=== PATIENT | female | born 1930 | race Caucasian/White ===

== ENCOUNTER 2020-01-04 21:13 | Inpatient (IN) | payer MEDICARE ==
[2020-01-04] MEDS ORDERED: ONDANSETRON 4 MG/2 ML VIAL IVP STA (22:09)
[2020-01-04] MEDS ORDERED: MORPHINE SULFATE 4 MG/ML SYRINGE IVP STA (22:09)
--- NOTE | 2020-01-04 22:28 | ED ---
Fall HPI - General Source: patient, EMS Mode of arrival: EMS <Rubina Castañeda - Last Filed: 01/06/20 01:17> <Ivet Shirley - Last Filed: 01/07/20 21:06> - General Chief Complaint: Fall Stated Complaint: Fall Time Seen by Provider: 01/04/20 21:31 - History of Present Illness Initial Comments: Patient is an 89-year-old female presenting to the emergency Department with complaints of left hip pain after falling earlier today. Patient states she just lost her balance and fell onto her left side mostly onto her left hip. She was unable to get up. Patient states this happened approximately 2 hours ago. She admits to left knee replacement, no other surgeries of the left lower extremities. She states her pain is sharp with any Hip Movement and is currently 8/10. Patient denies hitting her head, LOC. She denies pain anywhere else. She has no other complaints at this time. Upon arrival to the ER, her vital signs are stable. (Rubina Castañeda) - Related Data Home Medications Medication Instructions Recorded Confirmed Hydrochlorothiazide [Hydrodiuril] 25 mg PO DAILY 02/18/15 01/05/20 Levothyroxine Sodium [Synthroid] 112 mcg PO DAILY 02/18/15 01/05/20 Rivaroxaban [Xarelto] 15 mg PO HS 02/18/15 01/05/20 Rosuvastatin Calcium [Crestor] 20 mg PO DAILY 02/18/15 01/05/20 Cholecalciferol [Vitamin D3 (25 1,000 unit PO DAILY 01/05/20 01/05/20 Mcg = 1000 Iu)] Citalopram Hydrobromide [CeleXA] 10 mg PO DAILY 01/05/20 01/05/20 Diltiazem HCl [Cartia Xt] 180 mg PO DAILY 01/05/20 01/05/20 Olmesartan Medoxomil 20 mg PO DAILY 01/05/20 01/05/20 Allergies Allergy/AdvReac Type Severity Reaction Status Date / Time No Known Allergies Allergy Verified 01/05/20 11:02 Review of Systems ROS Other: All systems not noted in ROS Statement are negative. <Rubina Castañeda - Last Filed: 01/06/20 01:17> ROS Other: All systems not noted in ROS Statement are negative. <Ivet Shirley - Last Filed: 01/07/20 21:06> ROS Statement: Those systems with pertinent positive or pertinent negative responses have been documented in the HPI. Past Medical History Past Medical History: Atrial Fibrillation, Hypertension, Thyroid Disorder History of Any Multi-Drug Resistant Organisms: None Reported Past Surgical History: Appendectomy, Cholecystectomy, Hysterectomy, Joint Replacement, Tonsillectomy Additional Past Surgical History / Comment(s): cataract/LT KNEE REPLACEMENT Past Anesthesia/Blood Transfusion Reactions: No Reported Reaction Past Psychological History: No Psychological Hx Reported Smoking Status: Former smoker Past Alcohol Use History: Daily Past Drug Use History: None Reported <Rubina Castañeda - Last Filed: 01/06/20 01:17> General Exam <Rubina Castañeda - Last Filed: 01/06/20 01:17> - General Exam Comments Initial Comments: GENERAL: Nontoxic, in mild distress secondary to hip pain. HEAD: Atraumatic, normocephalic. EYES: Pupils equal round and reactive to light, extraocular movements intact, sclera anicteric, conjunctiva are normal. ENT: TMs normal, nares patent, oropharynx clear without exudates. Moist mucous membranes. NECK: Normal range of motion, supple without lymphadenopathy or JVD. LUNGS: Breath sounds clear to auscultation bilaterally and equal. No wheezes rales or rhonchi. HEART: Regular rate and rhythm without murmurs, rubs or gallops. ABDOMEN: Soft, nontender, normoactive bowel sounds. No guarding, no rebound. No masses appreciated. : Deferred EXTREMITIES: Pain with palpation of the left lateral posterior hip. There is a significant leg length difference with left leg elevated. She is neurovascular intact. There is moderate swelling of her left lower extremity. Neurovascular intact. No clubbing or cyanosis. NEUROLOGICAL: Cranial nerves II through XII grossly intact. Normal speech. PSYCH: Normal mood, normal affect. SKIN: Warm, Dry, normal turgor, no rashes or lesions noted. (Rubina Castañeda) Course Vital Signs 01/04/20 21:17 Temperature 97.8 F Pulse Rate 92 Respiratory 18 Rate Blood Pressure 165/98 O2 Sat by Pulse 98 Oximetry Medical Decision Making - Lab Data Result diagrams: 01/05/20 09:49 01/05/20 09:49 <Rubina Castañeda - Last Filed: 01/06/20 01:17> - Lab Data Result diagrams: 01/06/20 05:47 01/06/20 05:47 <Ivet Shirley - Last Filed: 01/07/20 21:06> - Medical Decision Making Patient is an 89-year-old female presenting for left hip pain after falling today. X-ray of the left hip reveals an acute, a comminuted, foreshortened, displaced left IT fracture. Patient was given pain control. Patient will be admitted to Dr. Wall who is accepting. (Rubina Castañeda) I was available for consultation in the emergency department. The history and p hysical exam were done by the midlevel provider. I was consulted for this patients care. I reviewed the case with the midlevel provider and based on their presentation of the patient, I agree with the assessment, medical decision making and plan of care as documented. I spoke with Dr. Solares who accepted admission of the patient. Chart was dictated using [employer] dictation software. Attempts were made to correct any dictation errors however some typographical errors may persist. Patient was seen during a national state of emergency due to the Covid-19 pandemic. (Ivet Shirley) - Lab Data Lab Results 01/04/20 01/04/20 01/04/20 Range/Units 21:20 21:20 21:20 WBC 9.6 (3.8-10.6) k/uL RBC 4.97 (3.80-5.40) m/uL Hgb 14.5 (11.4-16.0) gm/dL Hct 45.6 (34.0-46.0) % MCV 91.7 (80.0-100.0) fL MCH 29.2 (25.0-35.0) pg MCHC 31.8 (31.0-37.0) g/dL RDW 13.3 (11.5-15.5) % Plt Count 256 (150-450) k/uL Neutrophils % 43 % Lymphocytes % 43 % Monocytes % 6 % Eosinophils % 4 % Basophils % 1 % Neutrophils # 4.1 (1.3-7.7) k/uL Lymphocytes # 4.1 (1.0-4.8) k/uL Monocytes # 0.6 (0-1.0) k/uL Eosinophils # 0.4 (0-0.7) k/uL Basophils # 0.1 (0-0.2) k/uL PT 9.5 (9.0-12.0) sec INR 0.9 (<1.2) APTT 22.1 (22.0-30.0) sec Sodium 134 L (137-145) mmol/L Potassium 4.3 (3.5-5.1) mmol/L Chloride 94 L (98-107) mmol/L Carbon Dioxide 28 (22-30) mmol/L Anion Gap 12 mmol/L BUN 21 H (7-17) mg/dL Creatinine 1.01 (0.52-1.04) mg/dL Est GFR (CKD-EPI)AfAm 57 (>60 ml/min/1.73 sqM) Est GFR (CKD-EPI)NonAf 50 (>60 ml/min/1.73 sqM) Glucose 156 H (74-99) mg/dL Calcium 10.3 H (8.4-10.2) mg/dL Total Bilirubin 0.4 (0.2-1.3) mg/dL AST 30 (14-36) U/L ALT 26 (4-34) U/L Alkaline Phosphatase 100 (38-126) U/L Troponin I (0.000-0.034) ng/mL Total Protein 8.1 (6.3-8.2) g/dL Albumin 4.7 (3.5-5.0) g/dL Coronavirus (PCR) (Not Detectd) Blood Type Blood Type Recheck Bld Type Recheck Status Antibody Screen Spec Expiration Date 01/04/20 01/04/20 01/04/20 Range/Units 21:20 21:20 21:20 WBC (3.8-10.6) k/uL RBC (3.80-5.40) m/uL Hgb (11.4-16.0) gm/dL Hct (34.0-46.0) % MCV (80.0-100.0) fL MCH (25.0-35.0) pg MCHC (31.0-37.0) g/dL RDW (11.5-15.5) % Plt Count (150-450) k/uL Neutrophils % % Lymphocytes % % Monocytes % % Eosinophils % % Basophils % % Neutrophils # (1.3-7.7) k/uL Lymphocytes # (1.0-4.8) k/uL Monocytes # (0-1.0) k/uL Eosinophils # (0-0.7) k/uL Basophils # (0-0.2) k/uL PT (9.0-12.0) sec INR (<1.2) APTT (22.0-30.0) sec Sodium (137-145) mmol/L Potassium (3.5-5.1) mmol/L Chloride (98-107) mmol/L Carbon Dioxide (22-30) mmol/L Anion Gap mmol/L BUN (7-17) mg/dL Creatinine (0.52-1.04) mg/dL Est GFR (CKD-EPI)AfAm (>60 ml/min/1.73 sqM) Est GFR (CKD-EPI)NonAf (>60 ml/min/1.73 sqM) Glucose (74-99) mg/dL Calcium (8.4-10.2) mg/dL Total Bilirubin (0.2-1.3) mg/dL AST (14-36) U/L ALT (4-34) U/L Alkaline Phosphatase (38-126) U/L Troponin I <0.012 (0.000-0.034) ng/mL Total Protein (6.3-8.2) g/dL Albumin (3.5-5.0) g/dL Coronavirus (PCR) Not Detected (Not Detectd) Blood Type O Positive Blood Type Recheck No Previous Record Bld Type Recheck Status CABO Indicated Antibody Screen NEGATIVE Spec Expiration Date 01/07/2020 - 2319 Disposition <Rubina Castañeda - Last Filed: 01/06/20 01:17> <Ivet Shirley - Last Filed: 01/07/20 21:06> Clinical Impression: Fall, Left displaced femoral neck fracture Disposition: ADMITTED IP TO THIS HOSP Condition: Good
--- NOTE | 2020-01-04 22:39 | XR ---
EXAMINATION TYPE: XR chest 1V DATE OF EXAM: 01/04/2020 COMPARISON: NONE HISTORY: Chest pain after fall TECHNIQUE: Single frontal view of the chest is obtained. FINDINGS: Linear pleural parenchymal scarring near the right minor fissure. Pleural parenchymal scar ring is also seen in the left midlung. There is elevation of the right hemidiaphragm of unknown chron icity. Cholecystectomy clips are noted. There is diffuse osseous demineralization. Cardia mediastinal silhouette is upper limits normal size. IMPRESSION: Right hemidiaphragm elevation, bilateral pleural parenchymal scarring, and upper limits of normal size cardiomediastinal silhouette. No priors for comparison to determine chronicity of thes e findings.
--- NOTE | 2020-01-04 22:41 | XR ---
EXAMINATION TYPE: XR Hip Complete LT DATE OF EXAM: 01/04/2020 CLINICAL HISTORY: Left hip pain after fall TECHNIQUE: AP and frogleg views of the left hip are obtained. COMPARISON: None. FINDINGS: Intertrochanteric markedly comminuted and foreshortened left femoral fracture is seen. Fore shortening is approximately 4 cm. There is 3.5 cm lateral displacement of the distal fracture fragmen t. Femoral head maintains a normal rounded contour. Inferior and superior pubic rami fractures on the left appear chronic and corticated. IMPRESSION: 1. Acute, comminuted, foreshortened, and displaced left intertrochanteric femoral fracture. 2. Chronic appearing left superior and inferior pubic ramus fractures.
[2020-01-05] MEDS ORDERED: MORPHINE SULFATE 4 MG/ML SYRINGE ONE (00:28)
[2020-01-05 05:10] LABS: Basophils # (A) 0.1 k/uL (0-0.2); Basophils % (A) 1 %; Eosinophils # (A) 0.4 k/uL (0-0.7); Eosinophils % (A) 4 %; HCT 45.6 % (34.0-46.0); HGB 14.5 gm/dL (11.4-16.0); Lymphocytes # (A) 4.1 k/uL (1.0-4.8); Lymphocytes % (A) 43 %; MCH 29.2 pg (25.0-35.0); MCHC 31.8 g/dL (31.0-37.0); MCV 91.7 fL (80.0-100.0); Mean Platelet Volume 9.4; Monocytes # (A) 0.6 k/uL (0-1.0); Monocytes % (A) 6 %; Neutrophils # (A) 4.1 k/uL (1.3-7.7); Neutrophils % (A) 43 %; Platelet Count 256 k/uL (150-450); RBC 4.97 m/uL (3.80-5.40); RDW 13.3 % (11.5-15.5); WBC 9.6 k/uL (3.8-10.6)
[2020-01-05 05:11] LABS: INR 0.9 (<1.2); Partial Thromboplastin Time 22.1 sec (22.0-30.0); Prothrombin Time 9.5 sec (9.0-12.0)
[2020-01-05 05:55] LABS: Albumin 4.7 g/dL (3.5-5.0); Calcium 10.3 mg/dL (8.4-10.2); Potassium 4.3 mmol/L (3.5-5.1); Total Bilirubin 0.4 mg/dL (0.2-1.3); Total Protein 8.1 g/dL (6.3-8.2)
[2020-01-05] MEDS: HYDROcodone/APAP 5-325MG 1 EACH TAB PO PRN ×2 (07:36→14:44)
[2020-01-05 10:43] LABS: HCT 35.1 % (34.0-46.0); HGB 11.8 gm/dL (11.4-16.0); MCH 30.4 pg (25.0-35.0); MCHC 33.7 g/dL (31.0-37.0); MCV 90.4 fL (80.0-100.0); Mean Platelet Volume 8.6; Platelet Count 230 k/uL (150-450); RBC 3.88 m/uL (3.80-5.40); RDW 13.1 % (11.5-15.5)
[2020-01-05] MEDS ORDERED: HYDROmorphone 0.5 MG/0.5 ML SYRINGE IVP PRN ×2 (10:48)
[2020-01-05] MEDS ORDERED: DIAZEPAM 5 MG TAB PO PRN (10:48)
[2020-01-05] MEDS ORDERED: ONDANSETRON 4 MG/2 ML VIAL IVP PRN (10:48)
[2020-01-05] MEDS ORDERED: NALOXONE 0.4 MG/ML 1 ML VIAL IV PRN (10:48)
[2020-01-05] MEDS ORDERED: hydrOXYzine PAMOATE 25 MG CAP PO PRN (10:48)
[2020-01-05] MEDS ORDERED: ACETAMINOPHEN TAB 325 MG TAB PO PRN (10:48)
[2020-01-05] MEDS ORDERED: MAGNESIUM HYDROXIDE 2,400 MG/10 ML CUP PO PRN (10:48)
[2020-01-05 10:56] LABS: Albumin 3.5 g/dL (3.5-5.0); Calcium 9.1 mg/dL (8.4-10.2); Potassium 3.8 mmol/L (3.5-5.1); Total Bilirubin 0.7 mg/dL (0.2-1.3); Total Protein 6.5 g/dL (6.3-8.2)
--- NOTE | 2020-01-05 12:10 | P.PN ---
Subjective Progress Note Date: 01/05/20 Principal diagnosis: Left hip fracture Patient is an 89-year-old female seen at bedside this am. She presented to the Emergency Department last evening with complaints of left hip pain after falling earlier yesterday. Patient states she just lost her balance and fell onto her left side mostly onto her left hip. She was unable to get up. She admits to left knee replacement several years ago by Dr. Miller. She states her pain is sharp with any hip movement. Patient denies hitting her head or losing consciousness. She denies pain anywhere else. She has no other complaints at this time including numbness, tingling, weakness, calf pain, chest pain, shortness of breath, fever, chills, other. Objective - Vital Signs Vital signs: Vital Signs Temp 98.3 F 01/05/20 07:00 Pulse 93 01/05/20 07:00 Resp 18 01/05/20 07:00 BP 134/77 01/05/20 07:00 Pulse Ox 95 01/05/20 07:00 Intake & Output 01/04/20 01/05/20 01/05/20 18:59 06:59 18:59 Output Total 275 Balance -275 Weight 83.915 kg Output: Urine 275 Other: Voiding Method Indwelling Catheter Indwelling Catheter - Exam Inspection of left lower extremity shows a shortened internally rotated left leg. There are no wounds or erythema. Range of motion of left hip and knee is not tested due to fracture. Motor and sensation grossly intact throughout left lower extremity. Calf is SNT. 2+ DP and less than 2 sec cap refill present. - Constitutional General appearance: Present: no acute distress - Labs CBC & Chem 7: 01/05/20 09:49 01/05/20 09:49 Labs: Abnormal Lab Results - Last 24 Hours (Table) 01/04/20 01/05/20 01/05/20 Range/Units 21:20 09:49 09:49 WBC 11.0 H (3.8-10.6) k/uL Sodium 134 L 129 L (137-145) mmol/L Chloride 94 L 95 L (98-107) mmol/L BUN 21 H 20 H (7-17) mg/dL Glucose 156 H 141 H (74-99) mg/dL Calcium 10.3 H (8.4-10.2) mg/dL AST 94 H (14-36) U/L ALT 80 H (4-34) U/L Assessment and Plan (1) Left displaced femoral neck fracture Narrative/Plan: Patient has been reviewed with Dr. Ja Donaldson. Plan is to proceed with surgical intervention tomorrow, Thursday, January 06, 2020 including gamma nail/IM hip screw for left IT femur fracture. She is NPO after MN. Case discussed with scheduling and ordered. Medicine consulted for pre op clearance and perioperative medical management. She will need placement post op. Current Visit: Yes Status: Acute Priority: Medium Code(s): S72.002A - FRACTURE OF UNSP PART OF NECK OF LEFT FEMUR, INIT SNOMED Code(s): 3220529 Time with Patient: Less than 30
--- NOTE | 2020-01-05 14:37 | P.CONS ---
History of Present Illness - Reason for Consult Consult date: 01/05/20 Medical management hypertension, hypothyroidism, parox. atrial fibrillation Requesting physician: Ja Donaldson - Chief Complaint Left hip pain status post fall - History of Present Illness This is an 89-year-old female with history of paroxysmal atrial fibrillation, hypertension, hypothyroidism, former nicotine dependence and multiple other medical issues presented to the ER with left hip pain status post fall. Patient reports she was walking turning to go through a doorway and lost her balance. Denies head trauma. Denies syncope, lightheadedness or dizziness. Denies any focal deficits. Denies chest pain, palpitations or shortness of breath. Hip x- ray reported acute comminuted foreshortened and displaced left intertrochanteric femoral fracture, chronic appearing left superior and inferior pubic ramus fractures. Chest x-ray reported right hemidiaphragm elevation, bilateral pleural personal scarring in the upper limits of normal size cardiomediastinal s ilhouette. Coronavirus not detected. Troponins less than 0.012, 0.030. Sodium 129. Afebrile, mild leukocytosis, WBC 11. BUN 20, creatinine 1.1 on admission down to 0.75. Review of Systems ROS Statement: Those systems with pertinent positive or pertinent negative responses have been documented in the HPI. ROS Other: All systems not noted in ROS Statement are negative. Past Medical History Past Medical History: Atrial Fibrillation, Hypertension, Thyroid Disorder History of Any Multi-Drug Resistant Organisms: None Reported Past Surgical History: Appendectomy, Cholecystectomy, Hysterectomy, Joint Replacement, Tonsillectomy Additional Past Surgical History / Comment(s): cataract/LT KNEE REPLACEMENT Past Anesthesia/Blood Transfusion Reactions: No Reported Reaction Past Psychological History: No Psychological Hx Reported Smoking Status: Former smoker Past Alcohol Use History: Daily Past Drug Use History: None Reported Medications and Allergies Home Medications Medication Instructions Recorded Confirmed Type Hydrochlorothiazide [Hydrodiuril] 25 mg PO DAILY 02/18/15 01/05/20 History Levothyroxine Sodium [Synthroid] 112 mcg PO DAILY 02/18/15 01/05/20 History Rivaroxaban [Xarelto] 15 mg PO HS 02/18/15 01/05/20 History Rosuvastatin Calcium [Crestor] 20 mg PO DAILY 02/18/15 01/05/20 History Cholecalciferol [Vitamin D3 (25 1,000 unit PO DAILY 01/05/20 01/05/20 History Mcg = 1000 Iu)] Citalopram Hydrobromide [CeleXA] 10 mg PO DAILY 01/05/20 01/05/20 History Diltiazem HCl [Cartia Xt] 180 mg PO DAILY 01/05/20 01/05/20 History Olmesartan Medoxomil 20 mg PO DAILY 01/05/20 01/05/20 History Allergies Allergy/AdvReac Type Severity Reaction Status Date / Time No Known Allergies Allergy Verified 01/05/20 11:02 Physical Exam Vitals: Vital Signs Temp Pulse Pulse Resp BP BP Pulse Ox 01/05/20 07:00 98.3 F 93 18 134/77 95 01/05/20 01:44 97.8 F 81 19 143/67 94 L 01/04/20 21:17 97.8 F 92 18 165/98 98 Intake and Output 01/04/20 01/05/20 01/05/20 22:59 06:59 14:59 Output Total 275 Balance -275 Output: Urine 275 Other: Voiding Method Indwelling Catheter Indwelling Catheter Weight 83.915 kg PHYSICAL EXAM: VITAL SIGNS: As above GENERAL: Sitting up in bed, no acute distress HEENT: Conjunctivae normal. eyes normal. NECK: No JVD. No thyroid enlargement. No LNs CARDIOVASCULAR: S1, S2 regular.. No murmur RESPIRATION: Breath sounds diminished in the bases. No rhonchi or crackles. No bronchial breathing. ABDOMEN: Soft, nontender . No guarding. no masses palpable. No ascites, No hepatosplenomegaly.Bowel sounds heard. LEGS: Left lower extremity shortened, rotated, mild edema, positive pulses PSYCHIATRY: Alert and oriented X3, mood and affect normal. NERVOUS SYSTEM: Cranial N 2-12 grossly normal. Moves all 4 limbs. Diffuse weakness No focal deficits. Strength and sensation grossly intact.. Skin: no rash Lymphatic system. No LN neck axilla Results CBC & Chem 7: 01/05/20 09:49 01/05/20 09:49 Labs: Abnormal Lab Results - Last 24 Hours (Table) 01/04/20 01/05/20 01/05/20 Range/Units 21:20 09:49 09:49 WBC 11.0 H (3.8-10.6) k/uL Sodium 134 L 129 L (137-145) mmol/L Chloride 94 L 95 L (98-107) mmol/L BUN 21 H 20 H (7-17) mg/dL Glucose 156 H 141 H (74-99) mg/dL Calcium 10.3 H (8.4-10.2) mg/dL AST 94 H (14-36) U/L ALT 80 H (4-34) U/L Assessment and Plan Assessment: acute comminuted foreshortened and displaced left intertrochanteric femoral fracture, status post fall chronic appearing left superior and inferior pubic ramus fractures. Paroxysmal atrial fibrillation Hypertension Hypothyroidism Former nicotine dependence Plan: Continue on current medication regime ,monitoring and symptomatic treatment EKG/echo, serial troponins ordered. Incentive spirometer ordered. Placed on remote telemetry. Recommend also a cardiology consult in a patient who reports that she rarely sees a physician. Patient is on Xarelto which is currently on hold, surgery is tentatively scheduled for tomorrow. Further recommendations to follow. Preop clearance pending testing results and as per Dr. Cobb. Dr. Donaldson for the consult. The impression and plan of care has been dictated as directed. : I performed a history and examination of this patient, discussed the same with the dictator. I agree with the dictator's note ,documented as a scribe. Any additional findings or plans will be noted.
[2020-01-05] MEDS: HYDROmorphone 0.5 MG/0.5 ML SYRINGE IVP PRN (15:24)
--- NOTE | 2020-01-05 16:34 | XR ---
EXAMINATION TYPE: XR femur LT DATE OF EXAM: 01/05/2020 CLINICAL HISTORY: Left hip fracture evaluation TECHNIQUE: Two views of the left femur are obtained. COMPARISON: None FINDINGS: There is improved alignment of the left fracture seen on 01/04/2020. This is intertrochanteri c and comminuted. There remains approximately 2.7 cm foreshortening and 3 cm medial displacement of t he distal fracture fragment. The previously seen old appearing fractures of the superior and inferior pubic rami are not well seen. There is apex lateral angulation that has worsened in the interim. Lef t knee arthroplasty is partially visualized. IMPRESSION: Redemonstration of a known intertrochanteric comminuted foreshortened, displaced, angulat ed left hip fracture as detailed above.
[2020-01-05] MEDS: LACTATED RINGERS 1,000 ML IV SCH ×2 (17:26→20:38)
[2020-01-05] MEDS: SENNOSIDES-DOCUSATE SODIUM 1 EACH TAB PO SCH (20:34)
[2020-01-06] MEDS: HYDROmorphone 0.5 MG/0.5 ML SYRINGE IVP PRN ×2 (02:45→07:39)
[2020-01-06] MEDS: LEVOTHYROXINE 112 MCG TAB PO SCH (03:11)
[2020-01-06 07:41] LABS: Basophils # (A) 0.1 k/uL (0-0.2); Basophils % (A) 1 %; Eosinophils # (A) 0.3 k/uL (0-0.7); Eosinophils % (A) 4 %; HCT 33.7 % (34.0-46.0); HGB 10.8 gm/dL (11.4-16.0); Lymphocytes # (A) 2.1 k/uL (1.0-4.8); Lymphocytes % (A) 23 %; MCH 29.6 pg (25.0-35.0); MCHC 31.9 g/dL (31.0-37.0); MCV 92.9 fL (80.0-100.0); Mean Platelet Volume 9.2; Monocytes # (A) 0.6 k/uL (0-1.0); Monocytes % (A) 7 %; Neutrophils % (A) 65 %; Platelet Count 176 k/uL (150-450); RBC 3.63 m/uL (3.80-5.40); RDW 13.4 % (11.5-15.5); WBC 9.3 k/uL (3.8-10.6)
[2020-01-06] MEDS ORDERED: MELOXICAM 7.5 MG TAB PO SCH (09:00)
[2020-01-06 09:12] LABS: African American GFR (CKD) >90 (>60 ml/min/1.73 sqM); Anion Gap 8 mmol/L; Blood Urea Nitrogen 17 mg/dL (7-17); Calcium 8.8 mg/dL (8.4-10.2); Carbon Dioxide 27 mmol/L (22-30); Chloride 95 mmol/L (98-107); Glucose 108 mg/dL (74-99); Non-African American GFR(CKD) 80 (>60 ml/min/1.73 sqM); Potassium 3.8 mmol/L (3.5-5.1); Sodium 130 mmol/L (137-145)
[2020-01-06] MEDS: ATORVASTATIN 40 MG TAB PO SCH (09:22)
[2020-01-06] MEDS: CHOLECALCIFEROL 1,000 UNIT TAB PO SCH (09:22)
[2020-01-06] MEDS: HYDROCHLOROTHIAZIDE 25 MG TAB PO SCH (09:23)
[2020-01-06] MEDS: LOSARTAN 50 MG TAB PO SCH (09:23)
[2020-01-06] MEDS: CITALOPRAM HYDROBROMIDE 10 MG TAB PO SCH (09:23)
[2020-01-06] MEDS: DILTIAZEM CD 180 MG CAP.ER.24H PO SCH (09:23)
--- NOTE | 2020-01-06 09:35 | P.CRDCN ---
History of Present Illness History of present illness: HISTORY OF PRESENTING ILLNESS This is a pleasant 89-year-old female past medical history significant for proximal atrial fibrillation on long-term anticoagulation, hypertension, dy slipidemia and hypothyroidism. She follows in the office with Dr. Whaley. We have been asked to see in consultation for preoperative evaluation. She states yesterday she was walking from room to room in her home when she lost her balance and fell. She denies dizziness, chest pain or shortness of breath preceding the fall. She states she simply lost her balance/footing. Diagnostic imaging revealed an acute comminuted for shortened and displaced left intertrochanteric femoral fracture. She has been seen by orthopedic surgery and is scheduled to undergo surgical repair this morning. She is seen and examined resting comfortably lying flat in no acute distress. She has had no symptoms of chest pain, shortness of breath, dizziness or palpitations. DIAGNOSTICS EKG reveals sinus mechanism with first-degree AV block and nonspecific changes. Chest xray reveals right hemidiaphragm elevation, bilateral pleural parenchymal scarring with no acute cardiopulmonary process. Laboratory reviewed, WBC 9.3, hemoglobin 10.8, platelets 176, INR 0.9, SODIUM 1:30, POTASSIUM 3.8, CREATININE 0.62, cardiac enzymes negative 2 and Covid negative. Current cardiac medications include hydrochlorothiazide 25 mg daily, Xarelto 15 mg at bedtime, rosuvastatin 20 mg daily, diltiazem 180 mg daily and almost certain 20 mg daily. Most recent echocardiogram obtained in the office 2017 revealed preserved LV sy stolic function with ejection fraction 55-60%, mild MR and mild TR. REVIEW OF SYSTEMS At the time of my exam: CONSTITUTIONAL: Denies fever or chills. CARDIOVASCULAR: Denies chest pain, shortness of breath, orthopnea, PND or palpitations. RESPIRATORY: Denies cough. GASTROINTESTINAL: Denies abdominal pain, diarrhea, constipation, nausea or vomiting. MUSCULOSKELETAL: Denies myalgias. NEUROLOGIC: Denies numbness, tingling or weakness. ENDOCRINE: Denies fatigue, weight change, polydipsia or polyurina. GENITOURINARY: Denies burning, hematuria or urgency with micturation. HEMATOLOGIC: Denies history of anemia or bleeding. PHYSICAL EXAMINATION Blood pressure 144/74 heart rate 86 afebrile and maintaining oxygen saturation on room air. CONSTITUTIONAL: No apparent distress. HEENT: Head is normocephalic. Pupils are equal, round. Sclerae anicteric. Mucous membranes of the mouth are moist. No JVD. No carotid bruit. CHEST EXAMINATION: Lungs are clear to auscultation. No chest wall tenderness is noted on palpation or with deep breathing. HEART EXAMINATION: Regular rate and rhythm. S1, S2 heard. Soft systolic ejection murmur at the left sternal border, no gallops or rub. ABDOMEN: Soft, nontender. Positive bowel sounds. EXTREMITIES: 2+ peripheral pulses, no lower extremity edema and no calf tenderness. NEUROLOGIC EXAMINATION: Patient is awake, alert and oriented x3. ASSESSMENT Fall Left intertrochanteric femoral fracture Paroxysmal atrial fibrillation on long-term anticoagulation, currently maintaining sinus mechanism. Hypertension Dyslipidemia Hypothyroidism PLAN 2-D echocardiogram and Doppler study has been ordered and will be reviewed. She is maintaining sinus mechanism. Last dose of Xarelto was January 03 in the evening. Clinically she is euvolemic and has no symptoms of angina. There was no LOC with her fall. Given her advanced age and co-morbid conditions she is increased risk to undergo surgical intervention, however there are no absolute contraindications currently. Continue diltiazem as previously ordered for rate control and resume xarelto tonight after surgery is ok with ortho team. Thank you kindly for this consultation. Nurse Practitioner note has been reviewed, I agree with a documented findings and plan of care. Patient was seen and examined. Past Medical History Past Medical History: Atrial Fibrillation, Hypertension, Thyroid Disorder History of Any Multi-Drug Resistant Organisms: None Reported Past Surgical History: Appendectomy, Cholecystectomy, Hysterectomy, Joint Replacement, Tonsillectomy Additional Past Surgical History / Comment(s): cataract/LT KNEE REPLACEMENT Past Anesthesia/Blood Transfusion Reactions: No Reported Reaction Past Psychological History: No Psychological Hx Reported Smoking Status: Former smoker Past Alcohol Use History: Daily Past Drug Use History: None Reported Medications and Allergies Home Medications Medication Instructions Recorded Confirmed Type Hydrochlorothiazide [Hydrodiuril] 25 mg PO DAILY 02/18/15 01/05/20 History Levothyroxine Sodium [Synthroid] 112 mcg PO DAILY 02/18/15 01/05/20 History Rivaroxaban [Xarelto] 15 mg PO HS 02/18/15 01/05/20 History Rosuvastatin Calcium [Crestor] 20 mg PO DAILY 02/18/15 01/05/20 History Cholecalciferol [Vitamin D3 (25 1,000 unit PO DAILY 01/05/20 01/05/20 History Mcg = 1000 Iu)] Citalopram Hydrobromide [CeleXA] 10 mg PO DAILY 01/05/20 01/05/20 History Diltiazem HCl [Cartia Xt] 180 mg PO DAILY 01/05/20 01/05/20 History Olmesartan Medoxomil 20 mg PO DAILY 01/05/20 01/05/20 History Allergies Allergy/AdvReac Type Severity Reaction Status Date / Time No Known Allergies Allergy Verified 01/05/20 11:02 Physical Exam Vitals: Vital Signs Temp Pulse Resp BP Pulse Ox 01/06/20 07:00 98.5 F 86 15 144/74 95 01/06/20 03:23 98.4 F 80 17 110/69 95 01/05/20 19:53 98.4 F 77 18 102/63 91 L 01/05/20 16:38 97.9 F 74 17 117/70 92 L Intake and Output 01/05/20 01/06/20 01/06/20 22:59 06:59 14:59 Intake Total 100 Output Total 575 Balance -475 Intake: Oral 100 Output: Urine 575 Uretheral (Wynn) 300 Other: Voiding Method Indwelling Catheter Results 01/06/20 05:47 01/06/20 05:47 Cardiac Enzymes 01/04/20 01/05/20 01/05/20 Range/Units 21:20 09:49 09:49 AST 94 H (14-36) U/L Troponin I <0.012 0.030 (0.000-0.034) ng/mL CBC 01/05/20 01/06/20 Range/Units 09:49 05:47 WBC 11.0 H 9.3 (3.8-10.6) k/uL RBC 3.88 3.63 L (3.80-5.40) m/uL Hgb 11.8 10.8 L (11.4-16.0) gm/dL Hct 35.1 33.7 L (34.0-46.0) % Plt Count 230 176 (150-450) k/uL Comprehensive Metabolic Panel 01/05/20 Range/Units 09:49 Sodium 129 L (137-145) mmol/L Potassium 3.8 (3.5-5.1) mmol/L Chloride 95 L (98-107) mmol/L Carbon Dioxide 26 (22-30) mmol/L BUN 20 H (7-17) mg/dL Creatinine 0.75 (0.52-1.04) mg/dL Glucose 141 H (74-99) mg/dL Calcium 9.1 (8.4-10.2) mg/dL AST 94 H (14-36) U/L ALT 80 H (4-34) U/L Alkaline Phosphatase 72 (38-126) U/L Total Protein 6.5 (6.3-8.2) g/dL Albumin 3.5 (3.5-5.0) g/dL Current Medications Generic Name Dose Route Start Last Admin Trade Name Freq PRN Reason Stop Dose Admin Acetaminophen 650 mg 01/05/20 10:48 Tylenol Tab PO Q4HR PRN Pain Scale 1 to 5 Hydrocodone Bitart/Acetaminophen 2 each 01/05/20 07:31 01/05/20 14:44 [place] 5-325 PO 2 each Q6HR PRN Administration Pain Hydrocodone Bitart/Acetaminophen 1 each 01/05/20 10:48 [place] 5-325 PO Q6HR PRN Pain Scale 1 to 5 Hydrocodone Bitart/Acetaminophen 2 each 01/05/20 10:48 [place] 5-325 PO Q6HR PRN Pain Scale 6 to 10 Atorvastatin Calcium 40 mg 01/06/20 09:00 Lipitor PO DAILY [facility] Cholecalciferol 1,000 unit 01/06/20 09:00 Vitamin D3 (25 Mcg = 1000 Iu) PO DAILY [facility] Citalopram Hydrobromide 10 mg 01/06/20 09:00 Celexa PO DAILY [facility] Diazepam 2.5 mg 01/05/20 10:48 Valium PO Q8HR PRN Mild Spasms Diltiazem HCl 180 mg 01/06/20 09:00 Cardizem Cd PO DAILY [facility] Hydrochlorothiazide 25 mg 01/06/20 09:00 Hydrodiuril PO DAILY [facility] Hydromorphone HCl 0.125 mg 01/05/20 10:48 Dilaudid IVP Q3HR PRN Pain Scale 1 to 3 Hydromorphone HCl 0.25 mg 01/05/20 10:48 Dilaudid IVP Q3HR PRN Pain Scale 4 to 6 Hydromorphone HCl 0.5 mg 01/05/20 10:48 01/06/20 07:39 Dilaudid IVP 0.5 mg Q3HR PRN Administration Pain Scale 7 to 10 Hydroxyzine Pamoate 25 mg 01/05/20 10:48 Vistaril PO Q4HR PRN Nausea, Anxiety, Pain Control Lactated Ringer's 1,000 mls @ 75 mls/hr 01/05/20 11:00 01/05/20 20:38 Lactated Ringers IV 75 mls/hr .[id number] JESSIE Administration Cefazolin Sodium 2 gm/ Sodium 50 mls @ 100 mls/hr 01/06/20 16:00 Chloride IVPB 01/07/20 00:29 Q8HR [facility] Levothyroxine Sodium 112 mcg 01/06/20 06:30 01/06/20 03:11 Synthroid PO Not Given DAILY@0630 [facility] Losartan Potassium 100 mg 01/06/20 09:00 Cozaar PO DAILY [facility] Magnesium Hydroxide 2,400 mg 01/05/20 10:48 Milk Of Magnesia PO DAILY PRN Constipation Meloxicam 7.5 mg 01/06/20 09:00 Mobic PO DAILY [facility] Multivitamins 1 each 01/06/20 12:00 Theragran PO DAILY@1200 [facility] Naloxone HCl 0.2 mg 01/05/20 10:48 Narcan IV Q2M PRN Opioid Reversal Ondansetron HCl 4 mg 01/05/20 10:48 Zofran IVP Q8HR PRN Nausea And Vomiting Senna/Docusate Sodium 2 each 01/05/20 21:00 01/05/20 20:34 Senokot-S PO 2 each [facility] Administration Temazepam 15 mg 01/05/20 10:48 Restoril PO HS PRN Insomnia Intake and Output 01/05/20 01/06/20 01/06/20 22:59 06:59 14:59 Intake Total 100 Output Total 575 Balance -475 Intake: Oral 100 Output: Urine 575 Uretheral (Wynn) 300 Other: Voiding Method Indwelling Catheter 01/06/20 05:47 01/05/20 09:49
--- NOTE | 2020-01-06 10:37 | ECHOF ---
Referral Reason: MEASUREMENTS -------- HEIGHT: 170.2 cm WEIGHT: 83.9 kg BP: IVSd: 1.1 cm (0.6 - 1.1) LVIDd: 2.9 cm (3.9 - 5.3) LVPWd: 1.1 cm (0.6 - 1.1) IVSs: 1.4 cm LVIDs: 1.3 cm LVPWs: 1.4 cm Ao Diam: 2.6 cm (2.0 - 3.7) AV Cusp: 1.4 cm (1.5 - 2.6) LA Diam: 2.7 cm (2.7 - 3.8) MV EXCURSION: 9.024 mm (> 18.000) MV EF SLOPE: 38 mm/s (70 - 150) EPSS: 1.1 cm MV E Nestor: 0.73 m/s MV DecT: 135 ms MV A Nestor: 1.00 m/s MV E/A Ratio: 0.73 AV maxP.48 mmHg AV meanP.28 mmHg RAP: 5.00 mmHg RVSP: 33.39 mmHg FINDINGS -------- Sinus rhythm. This was a technically adequate study. The left ventricular size is normal. Left ventricular wall thickness is normal. Overall left vent ricular systolic function is normal with, an EF between 55 - 60 %. The right ventricle is normal in size. The left atrial size is normal. The right atrial size is normal. Aortic valve is trileaflet and is mildly thickened. There is mild aortic valve sclerosis. Peak/me an gradient across the Aortic Valve is 13.48mmHg / 9.28mmHg. The mitral valve is normal. Mild mitral regurgitation is present. The tricuspid valve appears structurally normal. Mild tricuspid regurgitation present. Right vent ricular systolic pressure is normal at < 35 mmHg. There is no pulmonic regurgitation present. The aortic root size is normal. Normal inferior vena cava with normal inspiratory collapse consistent with estimated right atrial pre ssure of 5 mmHg. There is a small, generalized pericardial effusion present. CONCLUSIONS -------- 1. Sinus rhythm. 2. This was a technically adequate study. 3. The left ventricular size is normal. 4. Left ventricular wall thickness is normal. 5. Overall left ventricular systolic function is normal with, an EF between 55 - 60 %. 6. The right ventricle is normal in size. 7. The left atrial size is normal. 8. The right atrial size is normal. 9. Aortic valve is trileaflet and is mildly thickened. 10. There is mild aortic valve sclerosis. 11. Peak/mean gradient across the Aortic Valve is 13.48mmHg / 9.28mmHg. 12. The mitral valve is normal. 13. Mild mitral regurgitation is present. 14. The tricuspid valve appears structurally normal. 15. Mild tricuspid regurgitation present. 16. Right ventricular systolic pressure is normal at < 35 mmHg. 17. There is no pulmonic regurgitation present. 18. The aortic root size is normal. 19. Normal inferior vena cava with normal inspiratory collapse consistent with estimated right atrial pressure of 5 mmHg. 20. There is a small, generalized pericardial effusion present. PRINCIPAL CONSULTING ENGINEER: Ana Cruz RDCS
[2020-01-06] MEDS: LACTATED RINGERS 1,000 ML IV SCH ×3 (10:46→23:50)
[2020-01-06] MEDS ORDERED: DEXAMETHASONE SOD PHOS (MDV) 100 MG/10 ML VIAL IVP ONE (10:56)
[2020-01-06] MEDS ORDERED: fentaNYL (PF) 50 MCG/ML 2 ML AMP ONE (11:24)
[2020-01-06] MEDS ORDERED: LIDOCAINE 1% INJ 10MG/ML (20 ML MDV) ONE (11:24)
[2020-01-06] MEDS ORDERED: PHENYLEPHRINE-0.9% NACL SYG 1 MG/10 ML SYRINGE ONE (11:24)
[2020-01-06] MEDS ORDERED: SUCCINYLCHOLINE CHLORIDE 100 MG/5 ML SYR IV ONE (11:24)
[2020-01-06] MEDS ORDERED: PROPOFOL 10 MG/ML 20 ML VIAL IV ONE (11:24)
[2020-01-06] MEDS ORDERED: SODIUM CHLORIDE 0.9% 100 ML with ceFAZolin 2,000 MG IV ONE ×2 (11:55)
--- NOTE | 2020-01-06 12:29 | P.OP ---
Date of Procedure: 01/06/20 Preoperative Diagnosis: Comminuted four-part intertrochanteric fracture left hip Postoperative Diagnosis: Comminuted four-part intertrochanteric fracture left hip Procedure(s) Performed: Close reduction and intramedullary rodding left hip Implants: [employer] Intertan nail 125, 11.5 mm x 18 cm. [employer] Intertan integrated-interlocking lag screw, 95 mm lag screw, 90 mm compression screw. [employer] L-P screw, 5.0 mm x 27.5 mm. Anesthesia: spinal Surgeon: Ja Donaldson System Auditor #1: Dominic Wiseman Estimated Blood Loss (ml): 100 Pathology: none sent Condition: stable Disposition: PACU Indications for Procedure: This is an 89-year-old female who sustained a fall at home from the ground- level. X-rays demonstrated a four-part comminuted intertrochanteric fracture of her left hip. After discussing the surgical and nonsurgical treatment options with her at length she wished proceed with a close reduction and intramedullary rodding of her left hip. Informed consent was obtained. Operative Findings: The operative findings are consistent with a comminuted 4 part intratrochanteric fracture of the left hip Description of Procedure: The patient was seen in the preoperative area, consent was reviewed, and the operative site was marked with a skin marker. The surgical procedure was discussed at length with both the patient and the family at the bedside. All questions were answered to the best of my ability. The patient was brought to the operating room and placed on the fracture table. Anesthesia was administered by the anesthesia department. 2 g of Ancef were administered intravenously. The patient was placed supine on the fracture table with the fractured extremity in traction boot. The other extremity was placed in a well leg reis and the bony prominences were well padded. A universal timeout was then performed which confirmed the patient's name, surgical site, ALLERGIES, and consent. Fracture reduction was performed with a traction and abduction maneuver which was confirmed with fluoroscopy, both AP and lateral views.. After reduction was performed, the extremity was then prepped with ChloraPrep solution and draped in the usual sterile fashion. Utilizing fluoroscopy to identify the tip of the greater trochanter, a 3 cm longitudinal incision was made just proximal to the greater trochanter. Incision was carried through the fascia to the tip of the greater trochanter. Utilizing a curved awl, the entry point was created at the tip of the greater trochanter and centralized in the AP and lateral planes. These locations were confirmed by fluoroscopy. A guidewire was then inserted down the medullary canal. Sequentially reaming of the femur was performed to 13 mm distally and 17 mm proximally with the channel reamer. After reaming, appropriate size nail was inserted over the guidewire. The nail was inserted to the appropriate depth and the guidewire was removed. Placement of the epi was confirmed with both AP and lateral fluoroscopic views. The lag screw drill sleeve was placed in the jig and a small skin incision was made on the lateral aspect of the leg and the lag screw drill sleeve was locked into the guide. The 3.2 mm guide pin sleeve was inserted through the lag screw drill sleeve down to bone. A 3.2 mm distally threaded guidewire was inserted through the guide pin sleeve. The guidewire was inserted in the desired position in the femoral head, both anterior and posterior. The lag screw length cage was inserted over the guidepin to the back of the lag screw drill sleeve. Lag screw length was then measured from the cage. Next, the 7.0 mm compression screw starter drill was inserted in the lag screw drill sleeve beneath the guidepin. The compression screw starter drill was advanced under power until it abutted the back and of the lag screw drill sleeve. The 7.0 mm compression screw drill was inserted through the lag screw drill sleeve into the hole created by the compression screw starter drill. This was advanced under fluoroscopy to a depth 5 mm less and the measurement taken for the guidepin. The compression screw drill was removed and the antirotation bar was inserted into the same hole. The 3.2 mm guide pin sleeve was then removed from the drill guide. The lag screw drill was then inserted to a depth that was measured by the lag screw gauge. This was done under fluoroscopy. The lag screw was inserted over the guidewire to the appropriate depth using fluoroscopy. Traction was then released. The antirotation bar was then removed and the compression screw was advanced through the lag screw drill sleeve beneath the lag screw. This was advanced to the appropriate compression was achieved. The proximal drill guide was then removed and the distal drill guide was then inserted in the jig. Skin incision was made down to bone and the distal drill guide was then placed. Distal hole was then drilled with a 4.0 mm drill and measured to the appropriate depth. Distal screw was then placed. The entire assembly was then removed and final fluoroscopic x-rays were obtained. The wounds were then irrigated copiously with saline solution. Fascia was closed with 0-Vicryl. Subcutaneous tissues were closed with 2-0 Vicryl and the skin was closed with fredis. Sterile dressings were applied. The patient was transported to the recovery room in stable condition. The day care assistant EDDIE Holman was required due the complexity of surgery the need for skilled medical surgical tech for positioning draping retraction and fracture reduction.
[2020-01-06] MEDS: MULTIVITAMINS, THERA 1 EACH TAB PO SCH (12:46)
--- NOTE | 2020-01-06 13:11 | FL ---
EXAMINATION TYPE: FL guidance operating room DATE OF EXAM: 01/06/2020 CLINICAL HISTORY: Fluoroscopic guidance and documentation during open reduction and internal fixation of a left hip fracture TECHNIQUE: Fluoroscopy. COMPARISON: None. FINDINGS: Fluoroscopic guidance was provided during procedure performed by Dr. Donaldson. A total of 1 minute and 13 seconds of fluoroscopic time was utilized during the procedure and 2 spot images was acquired during open reduction internal fixation of a left hip fracture. IMPRESSION: As Above.
--- NOTE | 2020-01-06 13:27 | P.PN ---
Subjective Progress Note Date: 01/06/20 This is an 89-year-old female with history of paroxysmal atrial fibrillation, hypertension, hypothyroidism, former nicotine dependence and multiple other medical issues presented to the ER with left hip pain status post fall. Patient reports she was walking turning to go through a doorway and lost her balance. Denies head trauma. Denies syncope, lightheadedness or dizziness. Denies any focal deficits. Denies chest pain, palpitations or shortness of breath. Hip x- ray reported acute comminuted foreshortened and displaced left intertrochanteric femoral fracture, chronic appearing left superior and inferior pubic ramus fractures. Chest x-ray reported right hemidiaphragm elevation, bilateral pleu ral personal scarring in the upper limits of normal size cardiomediastinal silhouette. Coronavirus not detected. Troponins less than 0.012, 0.030. Sodium 129. Afebrile, mild leukocytosis, WBC 11. BUN 20, creatinine 1.1 on admission down to 0.75. 01/06/2020 scheduled for surgery this morning with orthopedics. EKG reported sinus rhythm with first-degree AV block, nonspecific changes. Cardiac enzymes 2 negative, INR 0.9. Hemoglobin 10.8, platelets 176. Echo pending. Afebrile, normal WBC.VSS. Objective - Vital Signs Vital signs: Vital Signs Temp 97.7 F 01/06/20 12:52 Pulse 91 01/06/20 13:07 Resp 16 01/06/20 13:07 BP 115/59 01/06/20 13:07 Pulse Ox 97 01/06/20 13:07 Intake & Output 01/05/20 01/06/20 01/06/20 18:59 06:59 18:59 Intake Total 100 800 Output Total 300 275 220 Balance -200 -275 580 Intake: IV 800 Oral 100 Output: Urine 300 275 120 Uretheral (Wynn) 300 Estimated Blood Loss 100 Other: Voiding Method Indwelling Catheter Indwelling Catheter Indwelling Catheter - Exam VITAL SIGNS: As above GENERAL: Sitting up in bed, no acute distress HEENT: Conjunctivae normal. eyes normal. NECK: No JVD. No thyroid enlargement. No LNs CARDIOVASCULAR: S1, S2 regular. Systolic murmur RESPIRATION: Breath sounds diminished in the bases. No rhonchi or crackles. No bronchial breathing. ABDOMEN: Soft, nontender . No guarding. no masses palpable. No ascites, No hepatosplenomegaly.Bowel sounds heard. LEGS: Left lower extremity shortened, rotated, trace edema, positive pulses PSYCHIATRY: Alert and oriented X3, mood and affect normal. NERVOUS SYSTEM: Cranial N 2-12 grossly normal. Moves all 4 limbs. Diffuse weakness No focal deficits. Strength and sensation grossly intact.. Skin: no rash Lymphatic system. No LN neck axilla - Labs CBC & Chem 7: 01/06/20 05:47 01/06/20 05:47 Labs: Abnormal Lab Results - Last 24 Hours (Table) 01/06/20 01/06/20 Range/Units 05:47 05:47 RBC 3.63 L (3.80-5.40) m/uL Hgb 10.8 L (11.4-16.0) gm/dL Hct 33.7 L (34.0-46.0) % Sodium 130 L (137-145) mmol/L Chloride 95 L (98-107) mmol/L Glucose 108 H (74-99) mg/dL Assessment and Plan Assessment: acute comminuted foreshortened and displaced left intertrochanteric femoral fracture, status post fall chronic appearing left superior and inferior pubic ramus fractures. Paroxysmal atrial fibrillation Hypertension Hypothyroidism Former nicotine dependence Plan: Continue on current medication regime ,monitoring and symptomatic treatme nt. Continue holding Xarelto prior to surgery . Echo pending. Aggressive pulmonary toileting with Incentive spirometer reinforced.Pain management. Patient is at high risk given multiple comorbidities, no absolute contraindications at present ,cleared for surgery. OR pending. The impression and plan of care has been dictated as directed. : I performed a history and examination of this patient, discussed the same with the dictator. I agree with the dictator's note ,documented as a scribe. Any additional findings or plans will be noted.
[2020-01-06] MEDS ORDERED: HYDROmorphone 0.5 MG/0.5 ML SYRINGE IVP ONE (13:32)
[2020-01-06] MEDS: HYDROcodone/APAP 5-325MG 1 EACH TAB PO PRN (19:29)
[2020-01-06] MEDS ORDERED: RIVAROXABAN 15 MG TAB PO SCH (21:00)
[2020-01-06] MEDS: SENNOSIDES-DOCUSATE SODIUM 1 EACH TAB PO SCH (21:03)
[2020-01-07] MEDS: HYDROcodone/APAP 5-325MG 1 EACH TAB PO PRN ×2 (03:32→12:15)
[2020-01-07] MEDS: LEVOTHYROXINE 112 MCG TAB PO SCH (05:48)
[2020-01-07] MEDS: DILTIAZEM CD 180 MG CAP.ER.24H PO SCH (08:37)
[2020-01-07] MEDS: CITALOPRAM HYDROBROMIDE 10 MG TAB PO SCH (08:37)
[2020-01-07] MEDS: HYDROCHLOROTHIAZIDE 25 MG TAB PO SCH (08:38)
[2020-01-07] MEDS: ATORVASTATIN 40 MG TAB PO SCH (08:38)
[2020-01-07] MEDS: LOSARTAN 50 MG TAB PO SCH (08:38)
[2020-01-07] MEDS: CHOLECALCIFEROL 1,000 UNIT TAB PO SCH (08:38)
--- NOTE | 2020-01-07 09:15 | XR ---
EXAMINATION TYPE: XR chest 1V portable DATE OF EXAM: 01/07/2020 HISTORY: shortness of breath. REFERENCE: Previous study dated 01/04/2020. FINDINGS: There is chronic, appearing elevation of the right hemidiaphragm. There is improving atelec tasis in the right upper lobe. Heart size upper limits of normal. There is mild prominence of the rig ht hilum. This is likely, in part, due to rotation. Pleural spaces appear clear. IMPRESSION: IMPROVING ATELECTASIS, RIGHT UPPER LOBE.
--- NOTE | 2020-01-07 10:12 | P.PN ---
Progress Note - Text Progress Note Date: 01/07/20 Orthopedics: History of present illness: Patient is a very pleasant 81-year-old female who is seen examined at the bedside for follow-up evaluation in regards to her left hip. She underwent a left hip intramedullary nail fixation for left intertrochanteric hip fracture yesterday, 01/06/2020. She is sitting comfortably at the bedside. She feels her left hip pain is much better controlled postoperatively. She has not seen physical therapy at this morning. Her Wynn catheter remains intact. She breakfast without difficulty. She is not complaining of any significant pain. Patient has been seen by medicine and cardiology as well since her admission. Her Xarelto was restarted following surgical intervention yesterday. Nursing states patient was having some difficulty with oxygenation last evening. Her saturation dropped down into the 80s. She was started on 4-5 L of oxygen which improved her saturation. She is currently on 2-3 L of oxygen with saturations at 94%. She was seen by her primary care provider, Dr. Lenard Cobb, this morning. He ordered a chest x-ray and d-dimer. Her d-dimer has come back elevated at 3.87. Nursing states they're contacting medicine for further recommendations. Physical Exam Intramedullary Rodding for Intertrochanteric Fracture: Status post surgical day number 1 Patient is examined sitting in a bedside chair Patient is awake and alert, and oriented 3 Vital signs stable Good chest excursion with deep inspiration and expiration No signs or symptoms of DVT; no calf pain Lower extremity cuffs in place bilaterally Dressing of the left hip is clean, dry, and intact; no erythema, purulence, or signs of infection No pain with palpation over the surgical sites Full range of motion of ankles bilaterally Dorsiflexion, plantarflexion, and extensor hallucis longus positive sustained bilaterally Neurovascularly intact bilateral lower extremities Capillary refill less than 2 seconds bilateral lower extremities Wynn catheter intact Pertinent studies: D-dimer resulted on 01/07/2020: Elevated at 3.87 Chest x-ray taken on 01/07/2020: Improving atelectasis of the right upper lobe Assessment: Status post left intramedullary nail fixation for left intertrochanteric hip fracture Status post fall Atrial fibrillation Hypertension Thyroid disorder Low oxygen saturation overnight currently improved to 94% on 2-3 L of oxygen Elevated d-dimer at 3.87 Plan: 1. Patient to remain toe-touch weightbearing on the left lower extremity; patient may work with physical therapy to increase mobility and ambulation; she is encouraged to use walking aids to 80 ambulation 2. Keep dressing over the left hip clean, dry, and intact; fredis to remain intact at the surgical sites of the left 3. Discontinue Wynn catheter when patient is able to increase mobility and ambulation 4. Continue pain control with oral [place] and IV Dilaudid as needed for pain control 5. Continue with anticoagulation therapy with Xarelto as previously prescribed 6. Medicine and cardiology will continue following the patient for further treatment and evaluation of her other medical diagnoses; patient was seen and examined by medicine this morning who ordered chest x-ray imaging and a d-dimer. The d-dimer has returned elevated at 3.87. Nursing is currently contacted medicine for further recommendations. 7. We'll continue to follow the patient closely; depending on the patient's progress, we may plan for discharge to a rehabilitation facility as early as 01/09/2020. 8. Patient can follow-up with Dr. Ja Donaldson at [facility] in 2 weeks following discharge
--- NOTE | 2020-01-07 10:30 | P.PN ---
Subjective HISTORY OF PRESENTING ILLNESS This is a pleasant 89-year-old female past medical history significant for proximal atrial fibrillation on long-term anticoagulation, hypertension, dyslipidemia and hypothyroidism. She follows in the office with Dr. Whaley. She underwent closed reduction and IM epi placement to the left hip yesterday. Per the nurse she had some shortness of breath last night while sleeping and required oxygen. She underwent chest xray this morning revealing improving atelectatsis. D-dimer checked came to be elevated and CTA is ordered. She is seen and examined sitting up in the chair in on acute distress. She doesn't remember feeling short of breath last night. She denies chest pain, shortness of breath, dizziness or palpitations. Telemetry indicates she is having intermittent paroxysmal episodes of atrial fibrillation. Currently in sinus. Blood pressure 134/74 heart rate 96 afebrile and maintaining oxygen saturation on nasal cannula. Xarelto was resumed last night. PHYSICAL EXAMINATION CONSTITUTIONAL: No apparent distress. HEENT: Head is normocephalic. Pupils are equal, round. Sclerae anicteric. Mucous membranes of the mouth are moist. No JVD. No carotid bruit. CHEST EXAMINATION: Lungs are clear to auscultation. No chest wall tenderness is noted on palpation or with deep breathing. HEART EXAMINATION: Regular rate and rhythm. S1, S2 heard. Soft systolic ejection murmur at the left sternal border, no gallops or rub. EXTREMITIES: 2+ peripheral pulses, no lower extremity edema and no calf tendern ess. ASSESSMENT Fall Left intertrochanteric femoral fracture Paroxysmal atrial fibrillation on long-term anticoagulation, currently maintaining sinus mechanism. Hypertension Dyslipidemia Hypothyroidism PLAN Continue current medical regimen. Xarelto has been resumed per ortho for thromboembolic protection. Await results of CTA. Nurse Practitioner note has been reviewed, I agree with a documented findings and plan of care. Patient was seen and examined. Objective - Vital Signs Vital signs: Vital Signs Temp 98.2 F 01/07/20 07:30 Pulse 96 01/07/20 07:30 Resp 15 01/07/20 07:39 BP 134/74 01/07/20 07:30 Pulse Ox 94 L 01/07/20 07:30 Intake & Output 01/06/20 01/07/20 01/07/20 18:59 06:59 18:59 Intake Total 1290 1200 Output Total 220 900 Balance 1070 300 Intake: IV 1040 Intake, IV Titration 250 1200 Amount Lactated Ringers 1,000 ml 250 1200 @ 75 mls/hr IV .[id number] [facility] Rx#:[id number] Output: Urine 120 900 Estimated Blood Loss 100 Other: Voiding Method Indwelling Catheter Indwelling Catheter Indwelling Catheter - Labs CBC & Chem 7: 01/06/20 05:47 01/06/20 05:47 Labs: Abnormal Lab Results - Last 24 Hours (Table) 01/07/20 Range/Units 09:04 D-Dimer 3.87 H (<0.60) mg/L FEU
[2020-01-07] MEDS: IPRATROPIUM-ALBUTEROL 3 ML NEB INHALATION SCH ×2 (11:17→19:00)
--- NOTE | 2020-01-07 11:20 | CT ---
EXAMINATION TYPE: CT chest angio for PE DATE OF EXAM: 01/07/2020 COMPARISON: None. HISTORY: Post OP Left hip repair [address] day[address] of [address] DLP: 389.1 mGycm Automated exposure control for dose reduction was used. CONTRAST: CT Chest for pulmonary embolism performed with with IV Contrast, patient injected with 100 mL of Isov ue 370. FINDINGS: There is scarring or atelectasis in the upper lobes bilaterally. There are other areas of a telectasis along the course of the minor fissure on the right in the lung bases bilaterally. There is no significant axillary, mediastinal, internal mammary or hilar adenopathy. There is thrombus present in both the upper and lower lobe pulmonary the aorta is normal in caliber w ithout evidence of dissection. There is no pleural or pericardial fluid the heart is not enlarged. Within the abdomen, the gallbladder is been removed. There are at least 2 simple appearing cyst invol ving the right kidney. The remainder the upper abdomen is unremarkable. There is a severe wedge compression fracture of T12 with approximate millimeters of retropulsion. IMPRESSION: 1. THIS EXAMINATION IS POSITIVE FOR PULMONARY EMBOLUS IN THE FIRST AND SECOND ORDER PULMONARY ARTERY BRANCHES BILATERALLY. 2. NO EVIDENCE OF RIGHT HEART STRAIN. 3. SEVERE WEDGE COMPRESSION FRACTURE OF T12 WITH APPROXIMATELY 8 MM OF RETROPULSION. THIS REPORT WAS PHONED TO PRISCILLA ON 4SSUR AT THE TIME OF DICTATION
[2020-01-07] MEDS ORDERED: HEPARIN SODIUM,PORCINE 5,000 UNIT/ML 1 ML VIAL IV PRN (11:22)
[2020-01-07] MEDS ORDERED: HEPARIN SODIUM,PORCINE 10,000 UNIT/ML 1 ML VIAL IV ONE (11:22)
[2020-01-07 12:00] LABS: Partial Thromboplastin Time 24.2 sec (22.0-30.0); Prothrombin Time 10.4 sec (9.0-12.0)
[2020-01-07] MEDS: HEPARIN SOD,PORK IN 0.45% NACL 25,000 UNIT in 0.45% NACL 1 250ML.BAG IV SCH (12:03)
[2020-01-07] MEDS: MULTIVITAMINS, THERA 1 EACH TAB PO SCH (12:15)
--- NOTE | 2020-01-07 14:02 | P.CNPUL ---
History of Present Illness Consult date: 01/07/20 Reason for consult: dyspnea, chest pain Chief complaint: Shortness of breath, desaturation, acute hypoxic respiratory failure History of present illness: This is a 89-year-old female who admitted into the hospital after a fall Of left intertrochanteric fracture on 01/05 she ended up in an intramedullary nail placed, which was performed successfully postop day #0 at night she started developing shortness of breath and desaturation d-dimer was checked that was noted to be very high, patient has been ordered a computed tomography scan of the chest which is positive for bilateral. Patient has been started on IV heparin, she is currently complaining of back pain no chest pain or shortness of breath, chest CT scan has been reviewed and confirmed acute pulmonary embolism Review of Systems All systems: negative Past Medical History Past Medical History: Atrial Fibrillation, Hypertension, Thyroid Disorder History of Any Multi-Drug Resistant Organisms: None Reported Past Surgical History: Appendectomy, Cholecystectomy, Hysterectomy, Joint Replacement, Tonsillectomy Additional Past Surgical History / Comment(s): cataract/LT KNEE REPLACEMENT Past Anesthesia/Blood Transfusion Reactions: No Reported Reaction Past Psychological History: No Psychological Hx Reported Smoking Status: Former smoker Past Alcohol Use History: Daily Past Drug Use History: None Reported Medications and Allergies Home Medications Medication Instructions Recorded Confirmed Type Hydrochlorothiazide [Hydrodiuril] 25 mg PO DAILY 02/18/15 01/05/20 History Levothyroxine Sodium [Synthroid] 112 mcg PO DAILY 02/18/15 01/05/20 History Rivaroxaban [Xarelto] 15 mg PO HS 02/18/15 01/05/20 History Rosuvastatin Calcium [Crestor] 20 mg PO DAILY 02/18/15 01/05/20 History Cholecalciferol [Vitamin D3 (25 1,000 unit PO DAILY 01/05/20 01/05/20 History Mcg = 1000 Iu)] Citalopram Hydrobromide [CeleXA] 10 mg PO DAILY 01/05/20 01/05/20 History Diltiazem HCl [Cartia Xt] 180 mg PO DAILY 01/05/20 01/05/20 History Olmesartan Medoxomil 20 mg PO DAILY 01/05/20 01/05/20 History Allergies Allergy/AdvReac Type Severity Reaction Status Date / Time No Known Allergies Allergy Verified 05/07/20 11:02 Physical Exam Vitals: Vital Signs Temp Pulse Pulse Resp BP Pulse Ox 01/07/20 11:26 78 01/07/20 11:17 74 01/07/20 07:39 15 01/07/20 07:30 98.2 F 96 16 134/74 94 L 01/07/20 03:02 14 01/07/20 02:32 98.5 F 96 18 130/72 96 01/06/20 23:48 18 01/06/20 21:09 94 L 01/06/20 19:28 98.5 F 114 H 18 116/70 94 L 01/06/20 15:26 101 H 15 01/06/20 14:00 97.8 F 101 H 15 94/58 92 L Intake and Output 01/06/20 01/07/20 01/07/20 22:59 06:59 14:59 Intake Total 600 600 Output Total 900 Balance 600 -300 Intake: Intake, IV Titration 600 600 Amount Lactated Ringers 1,000 ml 600 600 @ 75 mls/hr IV .[id number] [facility] Rx#:[id number] Output: Urine 900 Other: Voiding Method Indwelling Catheter Indwelling Catheter Results - Laboratory Findings CBC and BMP: 01/06/20 05:47 01/06/20 05:47 PT/INR, D-dimer PT 10.4 sec (9.0-12.0) 01/07/20 09:04 INR 1.0 (<1.2) 01/07/20 09:04 D-Dimer 3.87 mg/L FEU (<0.60) H 01/07/20 09:04 Abnormal lab findings: Abnormal Labs 01/04/20 01/05/20 01/05/20 21:20 09:49 09:49 WBC 11.0 H RBC Hgb Hct D-Dimer Sodium 134 L 129 L Chloride 94 L 95 L BUN 21 H 20 H Glucose 156 H 141 H Calcium 10.3 H AST 94 H ALT 80 H 01/06/20 01/06/20 01/07/20 05:47 05:47 09:04 WBC RBC 3.63 L Hgb 10.8 L Hct 33.7 L D-Dimer 3.87 H Sodium 130 L Chloride 95 L BUN Glucose 108 H Calcium AST ALT - Diagnostic Findings Chest x-ray: report reviewed, image reviewed CT scan - chest: report reviewed, image reviewed (Finding as noted above) Assessment and Plan Assessment: Acute hypoxic respiratory failure Acute pulmonary embolism bilateral with acute hypoxic respiratory failure Chronic atrial fibrillation Status post fall and left intertrochanteric fracture status post intramedullary nail on 01/06/2020 Status post fall Hypertension hypertensive cardiovascular disease Dyslipidemia Hypothyroidism Morbid obesity Plan: Continue supplemental oxygen Deep breathing exercise incentive spirometry Continue heparin For 48-72 Hours Prior to Starting Oral Anticoagulants Possibly Consider Coumadin vs Eliquis vs LMWH like Lovenox Monitor and observe platelet closely Time with Patient: Greater than 30
--- NOTE | 2020-01-07 17:53 | PN ---
PROGRESS NOTE SUBJECTIVE: 89-year-old white female who had hypoxemia last night. She had a positive D-dimer this morning. CT scan of the chest showed positive for pulmonary embolus, 98% on 2 L. Started on IV heparin. Possible Eliquis or Xarelto. Pulmonary consult. At this time, remain on IV heparin. She is breathing better today. Cardiovascular S1, S2. Lungs show scattered rhonchi and rales. Hematology negative Homans. PSYCH: Fair mood and affect. ASSESSMENT AND PLAN: 1. Status post hip fracture with repair. 2. Pulmonary embolism. 3. Acute on chronic anemia. 4. Chest CTA shows positive pulmonary embolism for the 2nd pulmonary artery bilaterally. 5. Wedge compression fracture T12. 6. Continue with IV heparin. 7. Pulmonary consult. 8. Standard postop care. 9. Will need senior care placement most likely. SHANDA / DEWAYNEN: [id number] /
[2020-01-07] MEDS: METOPROLOL TARTRATE 25 MG TAB PO SCH (19:38)
[2020-01-07] MEDS: SENNOSIDES-DOCUSATE SODIUM 1 EACH TAB PO SCH (21:33)
[2020-01-07] MEDS: LACTATED RINGERS 1,000 ML IV SCH (21:33)
[2020-01-08] MEDS: HEPARIN SOD,PORK IN 0.45% NACL 25,000 UNIT in 0.45% NACL 1 250ML.BAG IV SCH (05:30)
[2020-01-08] MEDS: LEVOTHYROXINE 112 MCG TAB PO SCH (05:31)
[2020-01-08] MEDS: LACTATED RINGERS 1,000 ML IV SCH ×2 (05:32→21:20)
[2020-01-08] MEDS: IPRATROPIUM-ALBUTEROL 3 ML NEB INHALATION SCH ×3 (08:33→19:10)
[2020-01-08] MEDS: ATORVASTATIN 40 MG TAB PO SCH (08:44)
[2020-01-08] MEDS: HYDROCHLOROTHIAZIDE 25 MG TAB PO SCH (08:45)
[2020-01-08] MEDS: CITALOPRAM HYDROBROMIDE 10 MG TAB PO SCH (08:45)
[2020-01-08] MEDS: METOPROLOL TARTRATE 25 MG TAB PO SCH ×2 (08:45→21:20)
[2020-01-08] MEDS: CHOLECALCIFEROL 1,000 UNIT TAB PO SCH (08:45)
[2020-01-08] MEDS: DILTIAZEM CD 180 MG CAP.ER.24H PO SCH (08:45)
[2020-01-08] MEDS: LOSARTAN 50 MG TAB PO SCH (08:45)
[2020-01-08] MEDS: HYDROcodone/APAP 5-325MG 1 EACH TAB PO PRN (08:54)
[2020-01-08 09:42] LABS: Basophils # (A) 0.1 k/uL (0-0.2); Basophils % (A) 1 %; Eosinophils # (A) 0.2 k/uL (0-0.7); Eosinophils % (A) 2 %; HCT 27.1 % (34.0-46.0); Lymphocytes # (A) 1.6 k/uL (1.0-4.8); Lymphocytes % (A) 14 %; MCH 29.5 pg (25.0-35.0); MCHC 32.2 g/dL (31.0-37.0); MCV 91.6 fL (80.0-100.0); Mean Platelet Volume 9.9; Monocytes # (A) 0.8 k/uL (0-1.0); Monocytes % (A) 7 %; Neutrophils # (A) 8.8 k/uL (1.3-7.7); Neutrophils % (A) 76 %; Platelet Count 200 k/uL (150-450); RBC 2.96 m/uL (3.80-5.40); RDW 13.6 % (11.5-15.5); WBC 11.6 k/uL (3.8-10.6)
[2020-01-08 09:57] LABS: HGB 8.7 gm/dL (11.4-16.0)
[2020-01-08 09:58] LABS: ALT 79 U/L (4-34); AST 82 U/L (14-36); African American GFR (CKD) >90 (>60 ml/min/1.73 sqM); Albumin 2.9 g/dL (3.5-5.0); Alkaline Phosphatase 87 U/L (38-126); Anion Gap 9 mmol/L; Blood Urea Nitrogen 16 mg/dL (7-17); Calcium 8.7 mg/dL (8.4-10.2); Carbon Dioxide 28 mmol/L (22-30); Chloride 94 mmol/L (98-107); Glucose 140 mg/dL (74-99); Non-African American GFR(CKD) 78 (>60 ml/min/1.73 sqM); Potassium 3.9 mmol/L (3.5-5.1); Sodium 131 mmol/L (137-145); Total Bilirubin 0.7 mg/dL (0.2-1.3); Total Protein 5.8 g/dL (6.3-8.2)
--- NOTE | 2020-01-08 10:32 | P.PN ---
Subjective HISTORY OF PRESENTING ILLNESS This is a pleasant 89-year-old female past medical history significant for proximal atrial fibrillation on long-term anticoagulation, hypertension, dyslipidemia and hypothyroidism. She follows in the office with Dr. Whaley. She underwent repair of left femur fracture Thursday. Unfortunately, she was found to have a PE in the first and second pulmonary artery branches bilaterally. She had been maintained on xarelto 15 mg daily prior for paroxysmal a-fib which was changed to IV heparin per PCP. Heart rates were elevated last night and PO beta blockers were added to her regimen. She has converted to sinus mechanism. Blood pressure 121/67 heart rate 77 afebrile and maintaining oxygen saturation on nasal cannula. Laboratory data reviewed, WBC 11.6, hemoglobin 8.7, sodium 131, potassium 3.9, creatinine 0.67. She is seen and examined sitting up in the chair in no acute distress. She denies chest pain, shortness of breath, dizziness or palpitations. She denies feeling palpitations last night either. PHYSICAL EXAMINATION CONSTITUTIONAL: No apparent distress. HEENT: Head is normocephalic. Pupils are equal, round. Sclerae anicteric. Mucous membranes of the mouth are moist. No JVD. No carotid bruit. CHEST EXAMINATION: Lungs are clear to auscultation. No chest wall tenderness is noted on palpation or with deep breathing. HEART EXAMINATION: Regular rate and rhythm. S1, S2 heard. Soft systolic ejection murmur at the left sternal border, no gallops or rub. EXTREMITIES: 2+ peripheral pulses, no lower extremity edema and no calf tenderness. ASSESSMENT Fall Left intertrochanteric femoral fracture Paroxysmal atrial fibrillation on long-term anticoagulation, currently maintaining sinus mechanism. Hypertension Dyslipidemia Hypothyroidism PLAN Recommend PO anti-coagulation for PE, to be determined ultimately by PCP and primary care team. Continue lopressor and cardizem for rate control. We will continue to follow and make recommendations accordingly. Nurse Practitioner note has been reviewed, I agree with a documented findings and plan of care. Patient was seen and examined. Objective - Vital Signs Vital signs: Vital Signs Temp 98.4 F 01/08/20 07:00 Pulse 77 01/08/20 08:00 Resp 16 01/08/20 08:00 BP 121/67 01/08/20 07:00 Pulse Ox 98 01/08/20 07:00 Intake & Output 01/07/20 01/08/20 01/08/20 18:59 06:59 18:59 Intake Total 83.581 147.203 43.637 Output Total 800 Balance 83.581 -652.797 43.637 Intake: Intake, IV Titration 83.581 147.203 43.637 Amount Heparin Sod,Pork in 0.45% 83.581 147.203 43.637 NaCl 25,000 unit In 0.45 % NaCl 1 250ml.bag @ 12. 75 UNITS/KG/HR 10.699 mls /hr IV .[id number] [facility] Rx#: [id number] Output: Urine 800 Other: Voiding Method Indwelling Catheter Indwelling Catheter Indwelling Catheter # Bowel Movements 1 - Labs CBC & Chem 7: 01/08/20 09:16 01/08/20 09:16 Labs: Abnormal Lab Results - Last 24 Hours (Table) 01/07/20 01/08/20 01/08/20 Range/Units 17:38 01:34 09:16 WBC 11.6 H (3.8-10.6) k/uL RBC 2.96 L (3.80-5.40) m/uL Hgb 8.7 L D (11.4-16.0) gm/dL Hct 27.1 L (34.0-46.0) % Neutrophils # 8.8 H (1.3-7.7) k/uL APTT >200.0 H* 113.6 H* (22.0-30.0) sec Sodium (137-145) mmol/L Chloride (98-107) mmol/L Glucose (74-99) mg/dL AST (14-36) U/L ALT (4-34) U/L Total Protein (6.3-8.2) g/dL Albumin (3.5-5.0) g/dL 01/08/20 01/08/20 Range/Units 09:16 09:16 WBC (3.8-10.6) k/uL RBC (3.80-5.40) m/uL Hgb (11.4-16.0) gm/dL Hct (34.0-46.0) % Neutrophils # (1.3-7.7) k/uL APTT 44.4 H (22.0-30.0) sec Sodium 131 L (137-145) mmol/L Chloride 94 L (98-107) mmol/L Glucose 140 H (74-99) mg/dL AST 82 H (14-36) U/L ALT 79 H (4-34) U/L Total Protein 5.8 L (6.3-8.2) g/dL Albumin 2.9 L (3.5-5.0) g/dL
--- NOTE | 2020-01-08 13:36 | PN ---
PROGRESS NOTE 89-year-old white female we found a possible pulmonary embolism yesterday, started on high -molecular weight heparin for a couple days and may be place back on Xarelto or Eliquis maybe which was stopped temporarily due to the fracture of the leg and surgery which she is status post pinning of the left femur day 2. She is saturating on 2-3 L high 90s. Cardiovascular S1-S2. Lungs rales at the base. Hematology negative Homans. Psych: Fair mood and affect. ASSESSMENT: 1. Acute left comminuted fracture femur. 2. Pulmonary embolism bilateral lungs. 3. Continue without high molecular weight heparin for next [address] may be on Eliquis or back on Xarelto for discharge for long-term. She is normally on long- term anticoagulation anyway due to atrial fibrillation. 4. Atrial fibrillation. Cardiology has seen for atrial fibrillation and hypertension which appears to be fairly stable. MMODL / IJN: [id number] /
--- NOTE | 2020-01-08 14:17 | P.PN ---
Progress Note - Text Progress Note Date: 01/08/20 Orthopedics: History of present illness: Patient is a very pleasant 81-year-old female who is seen examined at the bedside for follow-up evaluation in regards to her left hip. She underwent a left hip intramedullary nail fixation for left intertrochanteric hip fracture 01/06/2020. She is currently sitting upright in bed. She continues to feel her left hip pain is much better controlled postoperatively. She does have some pain with increased movement of the left hip. She has a working with physical therapy to increase her mobility ambulance and ambulation. Her Wynn catheter was discontinued this morning. She has been able to void on her own. She is able to eat without difficulty. She is not complaining of any significant pain. She denies any shortness of breath. Yesterday she was found to have an elevated d-dimer is 3.87. CT of the chest was performed showing evidence of bilateral pulmonary embolism. She was started on heparin drip. She is been seen by pulmonology. She continues to be seen by medicine. She had been on Xarelto. She has been seen by medicine today who is recommending oral medications for anticoagulation for her pulmonary embolisms. CTA of the chest also showed evidence of a severe T12 wedging compression fracture deformity. Patient states she does not have a history that she knows of a fracture to her spine. She states she is not experiencing any thoracic back pain. She is not experiencing any symptoms in regards to her lower extremities. She has no increased pain with coughing or sneezing. She states at this time she does not want any evaluation in regards to her thoracic spine. Physical Exam Intramedullary Rodding for Intertrochanteric Fracture: Status post surgical day number 2 Patient is examined sitting upright in bed Patient is awake and alert, and oriented 3 Vital signs stable Good chest excursion with deep inspiration and expiration; currently on O2 nasal cannula No signs or symptoms of DVT; no calf pain Lower extremity cuffs currently in place bilaterally Dressing of the left hip is dry and intact with some dried blood; no erythema, purulence, or signs of infection Dressing is taken down during physical examination reapplied [place] remain intact over the surgical sites Some dried blood over the incision sites No pain with palpation over the surgical sites Full range of motion of ankles bilaterally Dorsiflexion, plantarflexion, and extensor hallucis longus positive sustained bilaterally Neurovascularly intact bilateral lower extremities Capillary refill less than 2 seconds bilateral lower extremities Wynn catheter his been discontinued Thoracic spine is not evaluated at the bedside as the patient declines any examination of her spine. Pertinent studies: CTA of the chest taken on 01/17/2020: Positive for pulmonary embolus in the first and second order pulmonary artery branches bilaterally; no evidence of right heart strain; evidence of T12 severe wedging compression fracture deformi ty of approximately 8 mm of retropulsion D-dimer resulted on 01/07/2020: Elevated at 3.87 Chest x-ray taken on 01/07/2020: Improving atelectasis of the right upper lobe Assessment: Status post left intramedullary nail fixation for left intertrochanteric hip fracture Status post fall Bilateral pulmonary embolism currently on heparin drip Atrial fibrillation Hypertension Thyroid disorder T12 severe wedging compression fracture deformity approximately 8 mm of retropulsion Plan: 1. Patient to remain toe-touch weightbearing on the left lower extremity; patient may work with physical therapy to increase mobility and ambulation; she is encouraged to use walking aids to aid in ambulation 2. CTA imagingof the chest showed evidence of a severe wedge compression fracture deformity at T12. The patient states she is not experiencing any thoracic back pain. She has no thoracic back pain with coughing or sneezing. She has no change in her lower extremities. At this time she declines physical examination of her spine. She states she does not wish to have any further imaging or evaluation in regards to her spine she is not currently experiencing any thoracic or lumbar pain. 3. Keep dressing over the left hip clean, dry, and intact; fredis to remain intact at the surgical sites of the left 4. Continue pain control with oral [place] and IV Dilaudid as needed for pain control 5. Following an elevated d-dimer, CT of the chest showed evidence of bilateral pulmonary embolism. Patient has been seen by pulmonology and medicine. Patient is currently on heparin drip. Medicine is currently recommending continue with anticoagulation with oral medications. We will plan for anticoagulation to be controlled by medicine and pulmonology at their discretion. 6. Patient's admit status has been under orthopedics. We are planning for patient's discharge to a rehabilitation facility tomorrow, 01/09/2020. Given the evidence of bilateral pulmonary embolism and anticoagulation currently being controlled by medicine and pulmonology, patient will most likely be unable to be discharged tomorrow. At this time, we'll plan to change the admit status from orthopedics to medicine given the patient's recent diagnosis of bilateral pulmonary embolisms and current treatment for her bilateral pulmonary embolisms. This has been discussed with nursing will discuss transfer of admit status with medicine. 7. From an orthopedic standpoint, patient is cleared for discharge once cleared by other medical providers including medicine and pulmonology. 8. Following discharge, we'll plan to follow-up with Dr. Ja Donaldson at [facility] in 2 weeks following discharge
[2020-01-08] MEDS: MULTIVITAMINS, THERA 1 EACH TAB PO SCH (14:22)
[2020-01-08] MEDS: SENNOSIDES-DOCUSATE SODIUM 1 EACH TAB PO SCH (21:20)
[2020-01-09] MEDS: LEVOTHYROXINE 112 MCG TAB PO SCH ×2 (05:16→05:19)
[2020-01-09] MEDS: HEPARIN SOD,PORK IN 0.45% NACL 25,000 UNIT in 0.45% NACL 1 250ML.BAG IV SCH ×2 (05:16→11:50)
[2020-01-09 07:26] LABS: Basophils # (A) 0.1 k/uL (0-0.2); Basophils % (A) 1 %; Eosinophils # (A) 0.3 k/uL (0-0.7); Eosinophils % (A) 2 %; HCT 24.5 % (34.0-46.0); HGB 8.1 gm/dL (11.4-16.0); Lymphocytes # (A) 2.3 k/uL (1.0-4.8); Lymphocytes % (A) 20 %; MCH 30.1 pg (25.0-35.0); MCHC 33.1 g/dL (31.0-37.0); MCV 90.8 fL (80.0-100.0); Mean Platelet Volume 9.5; Monocytes # (A) 0.8 k/uL (0-1.0); Monocytes % (A) 7 %; Neutrophils # (A) 7.6 k/uL (1.3-7.7); Neutrophils % (A) 68 %; Platelet Count 213 k/uL (150-450); RDW 13.7 % (11.5-15.5); WBC 11.2 k/uL (3.8-10.6)
[2020-01-09] MEDS: LACTATED RINGERS 1,000 ML IV SCH ×2 (08:13→17:34)
[2020-01-09] MEDS: ATORVASTATIN 40 MG TAB PO SCH (08:13)
[2020-01-09] MEDS: MULTIVITAMINS, THERA 1 EACH TAB PO SCH (08:13)
[2020-01-09] MEDS: LOSARTAN 50 MG TAB PO SCH (08:13)
[2020-01-09] MEDS: CHOLECALCIFEROL 1,000 UNIT TAB PO SCH (08:13)
[2020-01-09] MEDS: METOPROLOL TARTRATE 25 MG TAB PO SCH ×2 (08:13→20:20)
[2020-01-09] MEDS: CITALOPRAM HYDROBROMIDE 10 MG TAB PO SCH (08:14)
[2020-01-09] MEDS: DILTIAZEM CD 180 MG CAP.ER.24H PO SCH (08:14)
[2020-01-09] MEDS: HYDROCHLOROTHIAZIDE 25 MG TAB PO SCH (08:14)
[2020-01-09] MEDS: IPRATROPIUM-ALBUTEROL 3 ML NEB INHALATION SCH ×3 (08:29→18:56)
--- NOTE | 2020-01-09 09:15 | P.PN ---
Subjective HISTORY OF PRESENTING ILLNESS This is a pleasant 89-year-old female past medical history significant for proximal atrial fibrillation on long-term anticoagulation, hypertension, dyslipidemia and hypothyroidism. She follows in the office with Dr. Whaley. She underwent repair of left femur fracture Thursday. Unfortunately, she was found to have a PE in the first and second pulmonary artery branches bilaterally. Currently maintained on IV heparin. She is seen and examined sitting up in the chair in no acute distress. She denies chest pain, shortness of breath or palpitations. Telemetry reviewed and revealed sinus mechanism with no further episodes of a-fib RVR. Blood pressure 149/65 heart rate 86 afebrile and maintaining oxygen saturation on nasal cannula. Laboratory data reviewed, WBC 11.2, hgb 8.1, plt 213. PHYSICAL EXAMINATION CONSTITUTIONAL: No apparent distress. HEENT: Head is normocephalic. Pupils are equal, round. Sclerae anicteric. Mucous membranes of the mouth are moist. No JVD. No carotid bruit. CHEST EXAMINATION: Lungs are clear to auscultation. No chest wall tenderness is noted on palpation or with deep breathing. HEART EXAMINATION: Regular rate and rhythm. S1, S2 heard. Soft systolic ejection murmur at the left sternal border, no gallops or rub. EXTREMITIES: 2+ peripheral pulses, no lower extremity edema and no calf tenderness. ASSESSMENT Fall Left intertrochanteric femoral fracture Paroxysmal atrial fibrillation on long-term anticoagulation, currently maintaining sinus mechanism. Episode of a-fib RVR post-operatively. Hypertension Dyslipidemia Hypothyroidism PLAN Transition to xarelto 15 mg PO BID for 21 days if ok with orthopedic surgery. Continue cardizem and lopressor for rate control. Stable for discharge to rehab from a cardiac perspective. Follow up in the office with Dr. Whaley in 2 weeks. Nurse Practitioner note has been reviewed, I agree with a documented findings and plan of care. Patient was seen and examined. Objective - Vital Signs Vital signs: Vital Signs Temp 98.4 F 01/09/20 07:37 Pulse 86 01/09/20 08:44 Resp 16 01/09/20 07:37 BP 149/65 01/09/20 07:37 Pulse Ox 94 L 01/09/20 07:37 Intake & Output 01/08/20 01/09/20 01/09/20 18:59 06:59 18:59 Intake Total 725.873 424.127 28.195 Output Total 600 400 Balance 125.873 24.127 28.195 Intake: Intake, IV Titration 725.873 124.127 28.195 Amount Heparin Sod,Pork in 0.45% 125.873 124.127 28.195 NaCl 25,000 unit In 0.45 % NaCl 1 250ml.bag @ 12. 75 UNITS/KG/HR 10.699 mls /hr IV .[id number] [facility] Rx#: [id number] Lactated Ringers 1,000 ml 600 @ 75 mls/hr IV .[id number] [facility] Rx#:[id number] Oral 300 Output: Urine 600 400 Uretheral ([place]) 150 Other: Voiding Method Indwelling Catheter Bedpan # Voids 2 # Bowel Movements 2 - Labs CBC & Chem 7: 01/09/20 05:41 01/08/20 09:16 Labs: Abnormal Lab Results - Last 24 Hours (Table) 01/08/20 01/08/20 01/08/20 Range/Units 09:16 09:16 09:16 WBC 11.6 H (3.8-10.6) k/uL RBC 2.96 L (3.80-5.40) m/uL Hgb 8.7 L D (11.4-16.0) gm/dL Hct 27.1 L (34.0-46.0) % Neutrophils # 8.8 H (1.3-7.7) k/uL APTT 44.4 H (22.0-30.0) sec Sodium 131 L (137-145) mmol/L Chloride 94 L (98-107) mmol/L Glucose 140 H (74-99) mg/dL AST 82 H (14-36) U/L ALT 79 H (4-34) U/L Total Protein 5.8 L (6.3-8.2) g/dL Albumin 2.9 L (3.5-5.0) g/dL 01/08/20 01/08/20 01/09/20 Range/Units 15:52 22:40 05:41 WBC 11.2 H (3.8-10.6) k/uL RBC 2.70 L (3.80-5.40) m/uL Hgb 8.1 L (11.4-16.0) gm/dL Hct 24.5 L (34.0-46.0) % Neutrophils # (1.3-7.7) k/uL APTT 77.3 H 39.5 H (22.0-30.0) sec Sodium (137-145) mmol/L Chloride (98-107) mmol/L Glucose (74-99) mg/dL AST (14-36) U/L ALT (4-34) U/L Total Protein (6.3-8.2) g/dL Albumin (3.5-5.0) g/dL 01/09/20 Range/Units 05:41 WBC (3.8-10.6) k/uL RBC (3.80-5.40) m/uL Hgb (11.4-16.0) gm/dL Hct (34.0-46.0) % Neutrophils # (1.3-7.7) k/uL APTT 56.2 H (22.0-30.0) sec Sodium (137-145) mmol/L Chloride (98-107) mmol/L Glucose (74-99) mg/dL AST (14-36) U/L ALT (4-34) U/L Total Protein (6.3-8.2) g/dL Albumin (3.5-5.0) g/dL
--- NOTE | 2020-01-09 10:20 | P.PN ---
Subjective Progress Note Date: 01/09/20 Principal diagnosis: Acute hypoxic respiratory failure Acute pulmonary embolism bilateral with acute hypoxic respiratory failure Chronic atrial fibrillation Status post fall and left intertrochanteric fracture status post intramedullary nail on 01/06/2020 Status post fall Hypertension hypertensive cardiovascular disease Dyslipidemia Hypothyroidism Morbid obesity 01/09/2020, patient seen eval reexamined during the round he is she's comfortable on 2 L oxygen he denies any chest pain denies any shortness of breath respiratory status stable patient remains on heparin drip, it appears that patient took last dose of Xarelto on January 03 the day of fracture of hip, and she developed pulmonary embolism on night of , patient has been on heparin drip since , we'll give another 48 hours of heparin infusion and then will start Eliquis 5 mg bid, patient appears to be well anticoagulated hemoglobin is stable platelet counts are stable agree with starting physical therapy and rehab as planned This is a 89-year-old female who admitted into the hospital after a fall Of left intertrochanteric fracture on 01/05 she ended up in an intramedullary nail placed, which was performed successfully postop day #0 at night she started developing shortness of breath and desaturation d-dimer was checked that was noted to be very high, patient has been ordered a computed tomography scan of the chest which is positive for bilateral. Patient has been started on IV heparin, she is currently complaining of back pain no chest pain or shortness of breath, chest CT scan has been reviewed and confirmed acute pulmonary embolism Objective - Vital Signs Vital signs: Vital Signs Temp 98.4 F 01/09/20 07:37 Pulse 86 01/09/20 08:44 Resp 16 01/09/20 07:37 BP 149/65 01/09/20 07:37 Pulse Ox 94 L 01/09/20 07:37 Intake & Output 01/08/20 01/09/20 01/09/20 18:59 06:59 18:59 Intake Total 725.873 424.127 28.195 Output Total 600 400 Balance 125.873 24.127 28.195 Intake: Intake, IV Titration 725.873 124.127 28.195 Amount Heparin Sod,Pork in 0.45% 125.873 124.127 28.195 NaCl 25,000 unit In 0.45 % NaCl 1 250ml.bag @ 12. 75 UNITS/KG/HR 10.699 mls /hr IV .[id number] [facility] Rx#: [id number] Lactated Ringers 1,000 ml 600 @ 75 mls/hr IV .[id number] [facility] Rx#:[id number] Oral 300 Output: Urine 600 400 Uretheral ([place]ynn) 150 Other: Voiding Method Indwelling Catheter Bedpan # Voids 2 # Bowel Movements 2 - Constitutional General appearance: Present: disheveled, morbidly obese - EENT Eyes: Present: EOMI, PERRLA ENT: Present: hard of hearing Ears: bilateral: normal - Neck Carotids: bilateral: upstroke normal Thyroid: bilateral: normal size - Respiratory Respiratory: bilateral: CTA (Upper lungs), diminished (Bilaterally at the bases) - Cardiovascular Rhythm: regular Heart sounds: normal: S1, S2 - Gastrointestinal General gastrointestinal: Present: normal bowel sounds, soft - Neurologic Neurologic: Present: CNII-XII intact - Musculoskeletal Musculoskeletal: Present: gait normal, generalized weakness, strength equal bilaterally - Psychiatric Psychiatric: Present: A&O x's 3, appropriate affect, intact judgment & insight - Labs CBC & Chem 7: 01/09/20 05:41 01/08/20 09:16 Labs: Abnormal Lab Results - Last 24 Hours (Table) 01/08/20 01/08/20 01/09/20 Range/Units 15:52 22:40 05:41 WBC 11.2 H (3.8-10.6) k/uL RBC 2.70 L (3.80-5.40) m/uL Hgb 8.1 L (11.4-16.0) gm/dL Hct 24.5 L (34.0-46.0) % APTT 77.3 H 39.5 H (22.0-30.0) sec 01/09/20 Range/Units 05:41 WBC (3.8-10.6) k/uL RBC (3.80-5.40) m/uL Hgb (11.4-16.0) gm/dL Hct (34.0-46.0) % APTT 56.2 H (22.0-30.0) sec - Imaging and Cardiology Chest x-ray: report reviewed, image reviewed (Finding as noted above and in previous notes) CT scan - chest: report reviewed, image reviewed Assessment and Plan Assessment: Acute hypoxic respiratory failure Acute pulmonary embolism bilateral with acute hypoxic respiratory failure Chronic atrial fibrillation Status post fall and left intertrochanteric fracture status post intramedullary nail on 01/06/2020 Status post fall Hypertension hypertensive cardiovascular disease Dyslipidemia Hypothyroidism Morbid obesity Plan: Continue supplemental oxygen Deep breathing exercise incentive spirometry Continue heparin For another 48 Hours Prior to Starting Oral Anticoagulants Possibly Consider Eliquis 5 mg twice a day Monitor and observe PTT, hemoglobin, platelet closely Time with Patient: Greater than 30
[2020-01-09] MEDS ORDERED: HEPARIN SODIUM,PORCINE 5,000 UNIT/ML 1 ML VIAL IV PRN (11:28)
[2020-01-09] MEDS ORDERED: RIVAROXABAN 15 MG TAB PO SCH (11:30)
--- NOTE | 2020-01-09 13:20 | P.PN ---
Subjective Progress Note Date: 01/09/20 This patient is an 89- year old female that sustained a left four-part intertrochanteric hip fracture that is status-post closed reduction and intramedullary rodding of her left hip on 01/06/[address] Ja Donaldson. CTA of the chest on 01/07/20 revealed bilateral pulmonary embolism. She was started on a heparin drip. CTA chest also revealed evidence of a severe T12 compression fracture deformity. Patient is not experiencing any thoracic back pain or any symptoms in her extremities. Patient does not want any evaluation in regards to her thoracic spine. 01/09/20: Patient is examined bedside this morning. She remains on the heparin drip. She is currently experiencing no shortness of breath. She states the pain in her left hip is well-controlled. She is currently feeling very well and has no complaints. She states she has not worked with physical therapy yet today. She is tolerating her diet well. Overall, patient states she is feeling well. Patient denies chest pain, shortness of breath, nausea, vomiting, fevers, chills. Objective - Vital Signs Vital signs: Vital Signs Temp 98.4 F 01/09/20 07:37 Pulse 86 01/09/20 08:44 Resp 16 01/09/20 07:37 BP 149/65 01/09/20 07:37 Pulse Ox 94 L 01/09/20 07:37 Intake & Output 01/08/20 01/09/20 01/09/20 18:59 06:59 18:59 Intake Total 725.873 424.127 28.195 Output Total 600 400 Balance 125.873 24.127 28.195 Intake: Intake, IV Titration 725.873 124.127 28.195 Amount Heparin Sod,Pork in 0.45% 125.873 124.127 28.195 NaCl 25,000 unit In 0.45 % NaCl 1 250ml.bag @ 12. 75 UNITS/KG/HR 10.699 mls /hr IV .[id number] [facility] Rx#: [id number] Lactated Ringers 1,000 ml 600 @ 75 mls/hr IV .[id number] [facility] Rx#:[id number] Oral 300 Output: Urine 600 400 Uretheral ([place]ynn) 150 Other: Voiding Method Indwelling Catheter Bedpan # Voids 2 1 # Bowel Movements 2 - Exam On examination, the patient is sitting up in a bedside chair in no apparent distress. She is alert and oriented 3. Her breathing appears nonlabored. Nasal cannula in place. On inspection of the left hip, there is a clean, dry, and intact dressing in place. Dressing is taken down and reveals benign surgical incisions with intact fredis. There is minimal bleeding on the dressing. There is no surrounding erythema, warmth, fluctuance near the incisions. There is mild pain to palpation of the left hip. Patient has good strength and range of motion of her left ankle. Left lower extremity warm and well perfused with brisk capillary refill distally. Dorsalis pedis pulse palpable. Motor and sensory function appear to be intact to the left lower extremity. - Labs CBC & Chem 7: 01/09/20 05:41 01/08/20 09:16 Labs: Abnormal Lab Results - Last 24 Hours (Table) 01/08/20 01/08/20 01/09/20 Range/Units 15:52 22:40 05:41 WBC 11.2 H (3.8-10.6) k/uL RBC 2.70 L (3.80-5.40) m/uL Hgb 8.1 L (11.4-16.0) gm/dL Hct 24.5 L (34.0-46.0) % APTT 77.3 H 39.5 H (22.0-30.0) sec 01/09/20 Range/Units 05:41 WBC (3.8-10.6) k/uL RBC (3.80-5.40) m/uL Hgb (11.4-16.0) gm/dL Hct (34.0-46.0) % APTT 56.2 H (22.0-30.0) sec Assessment and Plan Assessment: Left intertrochanteric hip fracture status-post closed reduction and intramedullary rodding on this 01/06/20. Post-operative day #3. Bilateral pulmonary embolism currently on heparin drip. Plan: - Toe-touch weightbearing on the left lower extremity. Up with assistance, with a walker. - Physical therapy for gait and balance training. - Daily dressing changes, and PRN as dressing becomes saturated. - Bilateral pulmonary embolism will be managed per pulmonology, cardiology, and internal medicine. Patient currently on heparin drip. Current plan is to continue Heparin drip for additional 48 hours, then transition to oral anticoagulation, per Dr. Fountain. - Continue pain management with [place] and IV diluadid as needed. - Anticipate discharge to subacute rehab once cleared from multiple medical specialities.
[2020-01-09] MEDS: HYDROcodone/APAP 5-325MG 1 EACH TAB PO PRN (13:35)
--- NOTE | 2020-01-09 16:18 | P.PN ---
Subjective Progress Note Date: 01/09/20 This is an 89-year-old female with history of paroxysmal atrial fibrillation, hypertension, hypothyroidism, former nicotine dependence and multiple other medical issues presented to the ER with left hip pain status post fall. Patient reports she was walking turning to go through a doorway and lost her balance. Denies head trauma. Denies syncope, lightheadedness or dizziness. Denies any focal deficits. Denies chest pain, palpitations or shortness of breath. Hip x- ray reported acute comminuted foreshortened and displaced left intertrochanteric femoral fracture, chronic appearing left superior and inferior pubic ramus fractures. Chest x-ray reported right hemidiaphragm elevation, bilateral pleu ral personal scarring in the upper limits of normal size cardiomediastinal silhouette. Coronavirus not detected. Troponins less than 0.012, 0.030. Sodium 129. Afebrile, mild leukocytosis, WBC 11. BUN 20, creatinine 1.1 on admission down to 0.75. 01/06/2020 scheduled for surgery this morning with orthopedics. EKG reported sinus rhythm with first-degree AV block, nonspecific changes. Cardiac enzymes 2 negative, INR 0.9. Hemoglobin 10.8, platelets 176. Echo pending. Afebrile, normal WBC.VSS. 01/09/2020 Continues on heparin drip for acute bilateral PE. maintaining O2 sats in the 90s on 2 L nasal cannula. Denies chest pain, palpitations or shortness of breath. Maintained on Lopressor, Cardizem, telemetry reporting sinus rhythm. Pain currently controlled. Positive bowel movement. Objective - Vital Signs Vital signs: Vital Signs Temp 97.7 F 01/09/20 14:05 Pulse 68 01/09/20 14:05 Resp 18 01/09/20 14:05 BP 95/55 01/09/20 14:05 Pulse Ox 95 01/09/20 14:05 Intake & Output 01/08/20 01/09/20 01/09/20 18:59 06:59 18:59 Intake Total 725.873 424.127 28.195 Output Total 600 400 Balance 125.873 24.127 28.195 Intake: Intake, IV Titration 725.873 124.127 28.195 Amount Heparin Sod,Pork in 0.45% 125.873 124.127 28.195 NaCl 25,000 unit In 0.45 % NaCl 1 250ml.bag @ 12. 75 UNITS/KG/HR 10.699 mls /hr IV .[id number] [facility] Rx#: [id number] Lactated Ringers 1,000 ml 600 @ 75 mls/hr IV .[id number] [facility] Rx#:[id number] Oral 300 Output: Urine 600 400 Uretheral ([place]ynn) 150 Other: Voiding Method Indwelling Catheter Bedpan # Voids 2 1 # Bowel Movements 2 1 - Exam VITAL SIGNS: As above GENERAL: Sitting up in bed, no acute distress HEENT: Conjunctivae normal. eyes normal. NECK: No JVD. No thyroid enlargement. No LNs CARDIOVASCULAR: S1, S2 regular. Systolic murmur RESPIRATION: Breath sounds diminished in the bases. No rhonchi or crackles. ABDOMEN: Soft, nontender . No guarding. no masses palpable. Bowel sounds heard. LEGS: Left lower extremity dressing clean dry and intact, no calf tenderness, positive pulses PSYCHIATRY: Alert and oriented X3, mood and affect normal. NERVOUS SYSTEM: Cranial N 2-12 grossly normal. Moves all 4 limbs. No focal deficits. Strength and sensation grossly intact.. Skin: no rash - Labs CBC & Chem 7: 01/09/20 05:41 01/08/20 09:16 Labs: Abnormal Lab Results - Last 24 Hours (Table) 01/08/20 01/08/20 01/09/20 Range/Units 15:52 22:40 05:41 WBC 11.2 H (3.8-10.6) k/uL RBC 2.70 L (3.80-5.40) m/uL Hgb 8.1 L (11.4-16.0) gm/dL Hct 24.5 L (34.0-46.0) % APTT 77.3 H 39.5 H (22.0-30.0) sec 01/09/20 Range/Units 05:41 WBC (3.8-10.6) k/uL RBC (3.80-5.40) m/uL Hgb (11.4-16.0) gm/dL Hct (34.0-46.0) % APTT 56.2 H (22.0-30.0) sec Assessment and Plan Assessment: acute comminuted foreshortened and displaced left intertrochanteric femoral fracture, status post fall Acute bilateral pulmonary embolism Acute hypoxic respiratory failure secondary to the above chronic appearing left superior and inferior pubic ramus fractures. Paroxysmal atrial fibrillation, currently sinus rhythm, episode of A. fib with R VR postop. Hypertension Hypothyroidism Former nicotine dependence Plan: Continue on current medication regime ,monitoring and symptomatic treatment. Pulmonology requesting heparin drip for another 48 hours prior to starting Eliquis. Aggressive pulmonary toileting with Incentive spirometer reinforced.Pain management. Discharge planning in progress for subacute rehab for Thursday. The impression and plan of care has been dictated as directed. : I performed a history and examination of this patient, discussed the same with the dictator. I agree with the dictator's note ,documented as a scribe. Any additional findings or plans will be noted.
[2020-01-09] MEDS: SENNOSIDES-DOCUSATE SODIUM 1 EACH TAB PO SCH (20:20)
[2020-01-10] MEDS: HEPARIN SOD,PORK IN 0.45% NACL 25,000 UNIT in 0.45% NACL 1 250ML.BAG IV SCH (01:07)
[2020-01-10] MEDS: HYDROcodone/APAP 5-325MG 1 EACH TAB PO PRN (03:57)
[2020-01-10 04:39] LABS: Basophils # (A) 0.1 k/uL (0-0.2); Basophils % (A) 1 %; Eosinophils # (A) 0.4 k/uL (0-0.7); Eosinophils % (A) 4 %; HCT 23.6 % (34.0-46.0); HGB 7.7 gm/dL (11.4-16.0); Lymphocytes # (A) 2.4 k/uL (1.0-4.8); Lymphocytes % (A) 21 %; MCH 29.4 pg (25.0-35.0); MCHC 32.5 g/dL (31.0-37.0); MCV 90.5 fL (80.0-100.0); Mean Platelet Volume 8.6; Monocytes # (A) 0.7 k/uL (0-1.0); Monocytes % (A) 6 %; Neutrophils # (A) 7.3 k/uL (1.3-7.7); Neutrophils % (A) 66 %; Platelet Count 197 k/uL (150-450); RBC 2.61 m/uL (3.80-5.40); RDW 13.7 % (11.5-15.5); WBC 11.1 k/uL (3.8-10.6)
[2020-01-10] MEDS: LEVOTHYROXINE 112 MCG TAB PO SCH (05:44)
[2020-01-10] MEDS: IPRATROPIUM-ALBUTEROL 3 ML NEB INHALATION SCH ×3 (07:54→20:11)
[2020-01-10] MEDS: HYDROCHLOROTHIAZIDE 25 MG TAB PO SCH (08:29)
[2020-01-10] MEDS: METOPROLOL TARTRATE 25 MG TAB PO SCH ×2 (08:29→21:07)
[2020-01-10] MEDS: MULTIVITAMINS, THERA 1 EACH TAB PO SCH (08:29)
[2020-01-10] MEDS: CHOLECALCIFEROL 1,000 UNIT TAB PO SCH (08:30)
[2020-01-10] MEDS: CITALOPRAM HYDROBROMIDE 10 MG TAB PO SCH (08:30)
[2020-01-10] MEDS: DILTIAZEM CD 180 MG CAP.ER.24H PO SCH (08:30)
[2020-01-10] MEDS: LOSARTAN 50 MG TAB PO SCH (08:30)
[2020-01-10] MEDS: ATORVASTATIN 40 MG TAB PO SCH (08:31)
[2020-01-10] MEDS: LACTATED RINGERS 1,000 ML IV SCH ×2 (09:00→21:15)
--- NOTE | 2020-01-10 11:33 | P.PN ---
Subjective Progress Note Date: 01/10/20 Principal diagnosis: Left hip fracture Patient is an 89-year-old female seen at bedside this am. She is s/p left IT gamma nail performed 01/06/[address] Ja Donaldson. She has pain at surgical site as directed. She has no new complaints. She is being managed for PE's by medicine team. She denies numbness, tingling, weakness, fever, chills, chest pain or shortness of breath. Objective - Vital Signs Vital signs: Vital Signs Temp 98.2 F 01/10/20 07:08 Pulse 72 01/10/20 08:05 Resp 15 01/10/20 07:08 BP 122/68 01/10/20 07:08 Pulse Ox 98 01/10/20 07:08 Intake & Output 01/09/20 01/10/20 01/10/20 18:59 06:59 18:59 Intake Total 28.195 156.053 240 Balance 28.195 156.053 240 Intake: Intake, IV Titration 28.195 156.053 Amount Heparin Sod,Pork in 0.45% 28.195 NaCl 25,000 unit In 0.45 % NaCl 1 250ml.bag @ 12. 75 UNITS/KG/HR 10.699 mls /hr IV .[id number] [facility] Rx#: [id number] Heparin Sod,Pork in 0.45% 156.053 NaCl 25,000 unit In 0.45 % NaCl 1 250ml.bag @ 14 UNITS/KG/HR 11.748 mls/hr IV .[id number] [facility] Rx#: [id number] Oral 240 Other: Voiding Method Bedpan Bedside Commode # Voids 1 2 1 # Bowel Movements 1 - Exam On examination, the patient is sitting up in a bedside chair in no apparent distress. She is alert and oriented 3. Her breathing appears nonlabored. Nasal cannula in place. On inspection of the left hip, there is a clean, dry, and intact dressing in place. Dressing is taken down and reveals benign surgical incisions with intact fredis. There is minimal bleeding on the dressing. There is no surrounding erythema, warmth, fluctuance near the incisions. There is mild pain to palpation of the left hip. Patient has good strength and range of motion of her left ankle. Left lower extremity warm and well perfused with brisk capillary refill distally. Dorsalis pedis pulse palpable. Motor and sensory function appear to be intact to the left lower extremity. - Constitutional General appearance: Present: no acute distress - Labs CBC & Chem 7: 01/10/20 04:23 01/08/20 09:16 Labs: Abnormal Lab Results - Last 24 Hours (Table) 01/10/20 01/10/20 Range/Units 04:23 04:23 WBC 11.1 H (3.8-10.6) k/uL RBC 2.61 L (3.80-5.40) m/uL Hgb 7.7 L (11.4-16.0) gm/dL Hct 23.6 L (34.0-46.0) % APTT 60.5 H (22.0-30.0) sec Assessment and Plan (1) Left displaced femoral neck fracture Narrative/Plan: Continue: - Toe-touch weightbearing on the left lower extremity. Up with assistance, with a walker. - Physical therapy for gait and balance training. - Daily dressing changes, and PRN as dressing becomes saturated. - Bilateral pulmonary embolism will be managed per pulmonology, cardiology, and internal medicine. Patient currently on heparin drip. Current plan is to continue Heparin drip for additional 48 hours, then transition to oral anticoagulation, per Dr. Fountain. - Continue pain management with [place] and IV diluadid as needed. - Anticipate discharge to subacute rehab once cleared from multiple medical specialities. Current Visit: Yes Status: Acute Priority: Medium Code(s): S72.002A - FRACTURE OF UNSP PART OF NECK OF LEFT FEMUR, INIT SNOMED Code(s): 7882361 Time with Patient: Less than 30
--- NOTE | 2020-01-10 11:42 | P.PN ---
Subjective HISTORY OF PRESENTING ILLNESS This is a pleasant 89-year-old female past medical history significant for proximal atrial fibrillation on long-term anticoagulation, hypertension, dyslipidemia and hypothyroidism. She follows in the office with Dr. Whaley. She underwent repair of left femur fracture Thursday. She is seen and examined sitti ng up per parents work with physical therapy. She denies symptoms of shortness of breath, chest pain, dizziness or palpitations. Telemetry tracings reveal persistent sinus mechanism. Blood pressure 148/85 heart rate 94 afebrile maintaining oxygen saturation on room air. Continues to remain on heparin infusion per pulmonology. PHYSICAL EXAMINATION CONSTITUTIONAL: No apparent distress. HEENT: Head is normocephalic. Pupils are equal, round. Sclerae anicteric. Mucous membranes of the mouth are moist. No JVD. No carotid bruit. CHEST EXAMINATION: Lungs are clear to auscultation. No chest wall tenderness is noted on palpation or with deep breathing. HEART EXAMINATION: Regular rate and rhythm. S1, S2 heard. Soft systolic ejection murmur at the left sternal border, no gallops or rub. EXTREMITIES: 2+ peripheral pulses, no lower extremity edema and no calf tenderness. ASSESSMENT Fall Left intertrochanteric femoral fracture Paroxysmal atrial fibrillation on long-term anticoagulation, currently maintaining sinus mechanism. Episode of a-fib RVR post-operatively. Hypertension Dyslipidemia Hypothyroidism PLAN Recommend transitioning to oral anticoagulants. This was discussed by Dr. Cardenas with Dr. Fountain and he states he will make the transition today. Nurse Practitioner note has been reviewed, I agree with a documented findings and plan of care. Patient was seen and examined. Objective - Vital Signs Vital signs: Vital Signs Temp 98.2 F 01/10/20 07:08 Pulse 72 01/10/20 08:05 Resp 15 01/10/20 07:08 BP 122/68 01/10/20 07:08 Pulse Ox 98 01/10/20 07:08 Intake & Output 01/09/20 01/10/20 01/10/20 18:59 06:59 18:59 Intake Total 28.195 156.053 240 Balance 28.195 156.053 240 Intake: Intake, IV Titration 28.195 156.053 Amount Heparin Sod,Pork in 0.45% 28.195 NaCl 25,000 unit In 0.45 % NaCl 1 250ml.bag @ 12. 75 UNITS/KG/HR 10.699 mls /hr IV .[id number] [facility] Rx#: [id number] Heparin Sod,Pork in 0.45% 156.053 NaCl 25,000 unit In 0.45 % NaCl 1 250ml.bag @ 14 UNITS/KG/HR 11.748 mls/hr IV .[id number] [facility] Rx#: [id number] Oral 240 Other: Voiding Method Bedpan Bedside Commode # Voids 1 2 1 # Bowel Movements 1 - Labs CBC & Chem 7: 01/10/20 04:23 01/08/20 09:16 Labs: Abnormal Lab Results - Last 24 Hours (Table) 01/10/20 01/10/20 Range/Units 04:23 04:23 WBC 11.1 H (3.8-10.6) k/uL RBC 2.61 L (3.80-5.40) m/uL Hgb 7.7 L (11.4-16.0) gm/dL Hct 23.6 L (34.0-46.0) % APTT 60.5 H (22.0-30.0) sec
--- NOTE | 2020-01-10 11:51 | P.PN ---
Subjective Progress Note Date: 01/10/20 Principal diagnosis: Acute hypoxic respiratory failure Acute pulmonary embolism bilateral with acute hypoxic respiratory failure Chronic atrial fibrillation Status post fall and left intertrochanteric fracture status post intramedullary nail on 01/06/2020 Status post fall Hypertension hypertensive cardiovascular disease Dyslipidemia Hypothyroidism Morbid obesity 01/10/2020, patient seen eval examined during the rounds has been doing well she is on 2 L nasal cannula denies any chest pain denies any shortness of breath, patient has bilateral significant pulmonary embolism has been on IV heparin, case has been discussed with cardiovascular services they feel that patient has been on suboptimal dose of Xarelto and may not be taking it more regularly in the past, and can go back on Xarelto initial 15 mg 2 times a day subsequently 20 mg daily, will also consult hematology, heparin can be stopped tomorrow and Xarelto can be initiated 01/09/2020, patient seen eval reexamined during the round he is she's comfortable on 2 L oxygen he denies any chest pain denies any shortness of breath respiratory status stable patient remains on heparin drip, it appears that patient took last dose of Xarelto on January 03 the day of fracture of hip, and she developed pulmonary embolism on night of , patient has been on heparin drip since , we'll give another 48 hours of heparin infusion and then will start Eliquis 5 mg bid, patient appears to be well anticoagulated hemoglobin is stable platelet counts are stable agree with starting physical therapy and rehab as planned This is a 89-year-old female who admitted into the hospital after a fall Of left intertrochanteric fracture on 01/05 she ended up in an intramedullary nail placed, which was performed successfully postop day #0 at night she started developing shortness of breath and desaturation d-dimer was checked that was noted to be very high, patient has been ordered a computed tomography scan of the chest which is positive for bilateral. Patient has been started on IV heparin, she is currently complaining of back pain no chest pain or shortness of breath, chest CT scan has been reviewed and confirmed acute pulmonary embolism Objective - Vital Signs Vital signs: Vital Signs Temp 98.2 F 01/10/20 07:08 Pulse 72 01/10/20 08:05 Resp 15 01/10/20 07:08 BP 122/68 01/10/20 07:08 Pulse Ox 98 01/10/20 07:08 Intake & Output 01/09/20 01/10/20 01/10/20 18:59 06:59 18:59 Intake Total 28.195 156.053 240 Balance 28.195 156.053 240 Intake: Intake, IV Titration 28.195 156.053 Amount Heparin Sod,Pork in 0.45% 28.195 NaCl 25,000 unit In 0.45 % NaCl 1 250ml.bag @ 12. 75 UNITS/KG/HR 10.699 mls /hr IV .[id number] [facility] Rx#: [id number] Heparin Sod,Pork in 0.45% 156.053 NaCl 25,000 unit In 0.45 % NaCl 1 250ml.bag @ 14 UNITS/KG/HR 11.748 mls/hr IV .[id number] [facility] Rx#: [id number] Oral 240 Other: Voiding Method Bedpan Bedside Commode # Voids 1 2 1 # Bowel Movements 1 - Exam - Constitutional General appearance: Present: disheveled, morbidly obese - EENT Eyes: Present: EOMI, PERRLA ENT: Present: hard of hearing Ears: bilateral: normal - Neck Carotids: bilateral: upstroke normal Thyroid: bilateral: normal size - Respiratory Respiratory: bilateral: CTA (Upper lungs), diminished (Bilaterally at the bases) - Cardiovascular Rhythm: regular Heart sounds: normal: S1, S2 - Gastrointestinal General gastrointestinal: Present: normal bowel sounds, soft - Neurologic Neurologic: Present: CNII-XII intact - Musculoskeletal Musculoskeletal: Present: gait normal, generalized weakness, strength equal bilaterally - Psychiatric Psychiatric: Present: A&O x's 3, appropriate affect, intact judgment & insight - Labs CBC & Chem 7: 01/10/20 04:23 01/08/20 09:16 Labs: Abnormal Lab Results - Last 24 Hours (Table) 01/10/20 01/10/20 Range/Units 04:23 04:23 WBC 11.1 H (3.8-10.6) k/uL RBC 2.61 L (3.80-5.40) m/uL Hgb 7.7 L (11.4-16.0) gm/dL Hct 23.6 L (34.0-46.0) % APTT 60.5 H (22.0-30.0) sec Assessment and Plan Assessment: Acute hypoxic respiratory failure Acute pulmonary embolism bilateral with acute hypoxic respiratory failure Chronic atrial fibrillation Status post fall and left intertrochanteric fracture status post intramedullary nail on 01/06/2020 Status post fall Hypertension hypertensive cardiovascular disease Dyslipidemia Hypothyroidism Morbid obesity Plan: Continue supplemental oxygen Deep breathing exercise incentive spirometry Continue heparin For another 24 Hours Prior to Starting Oral Anticoagulants, Xeralto 15 mg bid subsequently 20 mg daily Monitor and observe PTT, hemoglobin, platelet closely Time with Patient: Greater than 30
--- NOTE | 2020-01-10 13:52 | P.PN ---
Subjective Progress Note Date: 01/10/20 This is an 89-year-old female with history of paroxysmal atrial fibrillation, hypertension, hypothyroidism, former nicotine dependence and multiple other medical issues presented to the ER with left hip pain status post fall. Patient reports she was walking turning to go through a doorway and lost her balance. Denies head trauma. Denies syncope, lightheadedness or dizziness. Denies any focal deficits. Denies chest pain, palpitations or shortness of breath. Hip x- ray reported acute comminuted foreshortened and displaced left intertrochanteric femoral fracture, chronic appearing left superior and inferior pubic ramus fractures. Chest x-ray reported right hemidiaphragm elevation, bilateral pleu ral personal scarring in the upper limits of normal size cardiomediastinal silhouette. Coronavirus not detected. Troponins less than 0.012, 0.030. Sodium 129. Afebrile, mild leukocytosis, WBC 11. BUN 20, creatinine 1.1 on admission down to 0.75. 01/06/2020 scheduled for surgery this morning with orthopedics. EKG reported sinus rhythm with first-degree AV block, nonspecific changes. Cardiac enzymes 2 negative, INR 0.9. Hemoglobin 10.8, platelets 176. Echo pending. Afebrile, normal WBC.VSS. 01/09/2020 Continues on heparin drip for acute bilateral PE. maintaining O2 sats in the 90s on 2 L nasal cannula. Denies chest pain, palpitations or shortness of breath. Maintained on Lopressor, Cardizem, telemetry reporting sinus rhythm. Pain currently controlled. Positive bowel movement. 01/10/2020 Continues on heparin drip. Some concern over possible Xarelto failure, but Daughter informed RN , that she doesn't think her mom was consistently taking Xarelto. Pulmonary requesting heparin drip being maintained for another 24 hours and consulted hematology. Maintaining O2 sats in the 90s on 2 L nasal cannula. Denies chest pain, palpitations. Objective - Vital Signs Vital signs: Vital Signs Temp 98.2 F 01/10/20 07:08 Pulse 74 01/10/20 12:05 Resp 15 01/10/20 07:08 BP 122/68 01/10/20 07:08 Pulse Ox 98 01/10/20 07:08 Intake & Output 01/09/20 01/10/20 01/10/20 18:59 06:59 18:59 Intake Total 28.195 156.053 420 Balance 28.195 156.053 420 Intake: Intake, IV Titration 28.195 156.053 Amount Heparin Sod,Pork in 0.45% 28.195 NaCl 25,000 unit In 0.45 % NaCl 1 250ml.bag @ 12. 75 UNITS/KG/HR 10.699 mls /hr IV .[id number] [facility] Rx#: [id number] Heparin Sod,Pork in 0.45% 156.053 NaCl 25,000 unit In 0.45 % NaCl 1 250ml.bag @ 14 UNITS/KG/HR 11.748 mls/hr IV .[id number] [facility] Rx#: [id number] Oral 420 Other: Voiding Method Bedpan Bedside Commode # Voids 1 2 1 # Bowel Movements 1 - Exam VITAL SIGNS: As above GENERAL: Sitting up in bed, no acute distress HEENT: Conjunctivae normal. eyes normal. NECK: No JVD. No thyroid enlargement. No LNs CARDIOVASCULAR: S1, S2 regular. Systolic murmur RESPIRATION: Breath sounds diminished in the bases. No rhonchi or crackles. ABDOMEN: Soft, nontender . No guarding. no masses palpable. Bowel sounds heard. LEGS: Left lower extremity dressing clean dry and intact, no calf tenderness, positive pulses PSYCHIATRY: Alert and oriented X3, mood and affect normal. NERVOUS SYSTEM: Cranial N 2-12 grossly normal. Moves all 4 limbs. No focal deficits. Strength and sensation grossly intact.. Skin: no rash - Labs CBC & Chem 7: 01/10/20 04:23 01/08/20 09:16 Labs: Abnormal Lab Results - Last 24 Hours (Table) 01/10/20 01/10/20 Range/Units 04:23 04:23 WBC 11.1 H (3.8-10.6) k/uL RBC 2.61 L (3.80-5.40) m/uL Hgb 7.7 L (11.4-16.0) gm/dL Hct 23.6 L (34.0-46.0) % APTT 60.5 H (22.0-30.0) sec Assessment and Plan Assessment: acute comminuted foreshortened and displaced left intertrochanteric femoral fracture, status post fall Acute bilateral pulmonary embolism Acute hypoxic respiratory failure secondary to the above chronic appearing left superior and inferior pubic ramus fractures. Paroxysmal atrial fibrillation, currently sinus rhythm, episode of A. fib with RVR postop. Hypertension Hypothyroidism Former nicotine dependence Plan: Continue on current medication regime ,monitoring and symptomatic treatme nt. Pulmonology recommending heparin drip for another 24 hours prior to starting Xarelto as well as a hematology consult. Aggressive pulmonary toileting with Incentive spirometer reinforced. Discharge planning in progress for subacute rehab for Thursday. The impression and plan of care has been dictated as directed. : I performed a history and examination of this patient, discussed the same with the dictator. I agree with the dictator's note ,documented as a scribe. Any additional findings or plans will be noted.
--- NOTE | 2020-01-10 13:55 | US ---
EXAMINATION TYPE: US venous doppler duplex LE DATE OF EXAM: 01/10/2020 1:12 PM COMPARISON: NONE CLINICAL HISTORY: Bilateral PE post op, baseline. PE. On blood thinners. Leg swelling. SIDE PERFORMED: Bilateral TECHNIQUE: The lower extremity deep venous system is examined utilizing real time linear array sonog taco with graded compression, doppler sonography and color-flow sonography. VESSELS IMAGED: External Iliac Vein (EIV) Common Femoral Vein Deep Femoral Vein Greater Saphenous Vein * Femoral Vein Popliteal Vein Small Saphenous Vein * Proximal Calf Veins (* superficial vessels) Right Leg: Negative for DVT Left Leg: Negative for DVT Grayscale, color doppler, spectral doppler imaging performed of the deep veins of the bilateral lower extremities. There is normal flow, compressibility, and vascular waveforms. IMPRESSION: No ultrasound evidence for acute DVT in either lower extremity.
--- NOTE | 2020-01-10 14:52 | CDI ---
Documentation Clarification Form Date: 01/10/2020 02:43:21 PM From: Karey Herzog CCS, CCDS Admit Date: 01/04/2020 11:42:00 PM Patient Name: Vania Clemons Visit Number: [id number] Discharge Date: ATTENTION: The Clinical Documentation Specialists (CDI) and [facility] Coding Staff appreciate your assistance in clarifying documentation. Please respond to the clarification below the line at the bottom and electronically sign. The CDI & [facility] Coding staff will review the response and follow-up if needed. Please note: Queries are made part of the Legal Health Record. If you have any questions, please contact the author of this message via ITS. Dr. Niels Fountain: Acute pulmonary embolism bilateral with acute hypoxic respiratory failure is documented in the 01/06 Pulmonary consult and subsequent Progress Notes. Patients Admitting Diagnosis: Left Intertrochangeric Fracture status post a fall at home. Post-Operative Diagnosis 01/05: Same Procedure performed: Closed reduction & IM rodding of left hip on 01/05. History/Risk Factors: Paroxysmal Atrial Fibrillation on anticoagulant (Xarelto) (held for surgery). Morbid Obesity w/BMI 29.0. Hypertensive Heart Disease w/o Heart Failure, Hyperlipidemia, Hypothyroidism, Former smoker. Clinical Indicators: Patient presented to the ED on 01/03, diagnosed with a comminuted four-part IT left femoral fracture. Status post surgery on 01/05 developed SOB & back pain, found by CT of the chest to have bilateral PE & a T12 wedge compression fracture. Treatment 01/05: Xarelto restarted, IV Heparin, IV Dilaudid, IV Cefazolin. In order to accurately reflect this patients severity of illness, please clarify if the Acute Bilateral Pulmonary Embolish & Acute Hypoxic Respiratory Failure: Is an expected outcome of the surgical procedure (Last Revision: October 2019) MTDD
--- NOTE | 2020-01-10 16:31 | P.CONS ---
History of Present Illness - Reason for Consult Consult date: 01/10/20 Xarelto failure Requesting physician: Niels Fountain - Chief Complaint fall, lt hip fracture - History of Present Illness Ms. Clemons is a very pleasant female who we have been asked to see for bilateral PE post op closed reduction with intramedullary epi for left hip fracture. Pt has been on xarelto for a-fib, 15mg PO QD. This was held for surgery, the day after surgery pt was diagnosed with PE. Pt denies history of blood clots, no known clotting in the family, no personal or family history of cancers, denies bleeding at this time, her surgery site is understandably uncomfortable but no unrealistic pain to report. Review of Systems 14 point ROS is negative except as stated in HPI Past Medical History Past Medical History: Atrial Fibrillation, Hypertension, Thyroid Disorder History of Any Multi-Drug Resistant Organisms: None Reported Past Surgical History: Appendectomy, Cholecystectomy, Hysterectomy, Joint Replacement, Tonsillectomy Additional Past Surgical History / Comment(s): cataract/LT KNEE REPLACEMENT Past Anesthesia/Blood Transfusion Reactions: No Reported Reaction Past Psychological History: No Psychological Hx Reported Smoking Status: Former smoker Past Alcohol Use History: Daily Past Drug Use History: None Reported Medications and Allergies Home Medications Medication Instructions Recorded Confirmed Type Hydrochlorothiazide [Hydrodiuril] 25 mg PO DAILY 02/18/15 01/05/20 History Levothyroxine Sodium [Synthroid] 112 mcg PO DAILY 02/18/15 01/05/20 History Rivaroxaban [Xarelto] 15 mg PO HS 02/18/15 01/05/20 History Rosuvastatin Calcium [Crestor] 20 mg PO DAILY 02/18/15 01/05/20 History Cholecalciferol [Vitamin D3 (25 1,000 unit PO DAILY 01/05/20 01/05/20 History Mcg = 1000 Iu)] Citalopram Hydrobromide [CeleXA] 10 mg PO DAILY 01/05/20 01/05/20 History Diltiazem HCl [Cartia Xt] 180 mg PO DAILY 01/05/20 01/05/20 History Olmesartan Medoxomil 20 mg PO DAILY 01/05/20 01/05/20 History Allergies Allergy/AdvReac Type Severity Reaction Status Date / Time No Known Allergies Allergy Verified 01/05/20 11:02 Physical Exam Vitals: Vital Signs Temp Pulse Pulse Resp BP BP Pulse Ox 01/10/20 12:05 74 01/10/20 11:53 78 01/10/20 08:05 72 01/10/20 07:54 70 01/10/20 07:08 98.2 F 60 15 122/68 98 01/10/20 01:38 98.2 F 66 14 134/82 96 01/10/20 00:00 18 01/09/20 19:26 97.7 F 64 18 115/67 96 01/09/20 19:08 69 18 01/09/20 18:56 66 18 96 01/09/20 14:05 97.7 F 68 18 95/55 95 01/09/20 12:34 84 01/09/20 12:25 80 Intake and Output 01/09/20 01/10/20 01/10/20 22:59 06:59 14:59 Intake Total 156.053 240 Balance 156.053 240 Intake: Intake, IV Titration 156.053 Amount Heparin Sod,Pork in 0.45% 156.053 NaCl 25,000 unit In 0.45 % NaCl 1 250ml.bag @ 14 UNITS/KG/HR 11.748 mls/hr IV .[id number] [facility] Rx#: [id number] Oral 240 Other: Voiding Method Bedside Commode # Voids 2 1 - Constitutional General appearance: cooperative, no acute distress, obese - EENT Eyes: anicteric sclerae, EOMI ENT: hearing grossly normal, normal oropharynx - Neck Neck: no lymphadenopathy - Respiratory Respiratory: bilateral: CTA, diminished - Cardiovascular bradycardia Heart sounds: normal: S1, S2 Abnormal Heart Sounds: no systolic murmur, no diastolic murmur, no rub, no S3 Gallop, no S4 Gallop, no click, no other leg Peripheral Edema: right: Trace, left: 1+ - Gastrointestinal General gastrointestinal: no absent bowel sounds, no decreased bowel sounds, no distended, no hepatomegaly, no hyperactive bowel sounds, normal bowel sounds, no organomegaly, no rigid, no scaphoid, soft, no splenomegaly, no tenderness, no umbilical hernia, no ventral hernia - Neurologic Neurologic: CNII-XII intact - Musculoskeletal left hip minor bruising, incisions look good Musculoskeletal: generalized weakness - Psychiatric Psychiatric: A&O x's 3, appropriate affect, intact judgment & insight Results CBC & Chem 7: 01/10/20 04:23 01/08/20 09:16 Labs: Abnormal Lab Results - Last 24 Hours (Table) 01/10/20 01/10/20 Range/Units 04:23 04:23 WBC 11.1 H (3.8-10.6) k/uL RBC 2.61 L (3.80-5.40) m/uL Hgb 7.7 L (11.4-16.0) gm/dL Hct 23.6 L (34.0-46.0) % APTT 60.5 H (22.0-30.0) sec CT scan - chest: report reviewed Venous US: report reviewed (BLE neg for DVT) Assessment and Plan (1) Left displaced femoral neck fracture Narrative/Plan: S/P surgery, defer mgmt to Orthopedics Current Visit: Yes Status: Acute Priority: High Code(s): S72.002A - FRACTURE OF UNSP PART OF NECK OF LEFT FEMUR, INIT SNOMED Code(s): 5371348 (2) Bilateral pulmonary embolism Narrative/Plan: Post op. Case discussed with Dr. Camara. Recommendation is for loading dose xarelto and cont a full dose anticoagulation for at least 6 mo for provoked PE. Pt can resume her lower dose per Cardiology for a-fib at that time. Doppler of BLE ordered, negative for DVT Current Visit: Yes Status: Acute Priority: High Code(s): I26.99 - OTHER PULMONARY EMBOLISM WITHOUT ACUTE COR PULMONALE SNOMED Code(s): 62190774 (3) A-fib Narrative/Plan: Why pt was on xarelto. Dose adjusted for acute PE. Follow up with Cardiology f or dosing recs regarding dose after completion of 6mo full dose anticoagulation for PE. Current Visit: Yes Status: Chronic Priority: Medium Code(s): I48.91 - UNSPECIFIED ATRIAL FIBRILLATION SNOMED Code(s): 36838672
[2020-01-10 17:28] LABS: Appearance,Urine Clear (Clear); Bacteria,Urine Rare /hpf; Bilirubin,Urine Negative (Negative); Blood,Urine Small (Negative); Color,Urine Yellow; Glucose,Urine (UA) Negative (Negative); Ketones,Urine Negative (Negative); Leukocyte Esterase,Urine Negative (Negative); Mucus,Urine Rare /hpf; Nitrite,Urine Negative (Negative); Protein,Urine Negative (Negative); RBC,Urine 4 /hpf (0-5); Specific Gravity,Urine 1.009 (1.001-1.035); Squamous Epithelial Cell,Urine <1 /hpf (0-4); WBC,Urine 2 /hpf (0-5)
[2020-01-10] MEDS: SENNOSIDES-DOCUSATE SODIUM 1 EACH TAB PO SCH (21:07)
[2020-01-10] MEDS: PANTOPRAZOLE 40 MG/10 ML VIAL IVP SCH (21:07)
[2020-01-11] MEDS: HYDROcodone/APAP 5-325MG 1 EACH TAB PO PRN ×3 (02:37→22:45)
[2020-01-11] MEDS: TEMAZEPAM 15 MG CAP PO PRN ×2 (02:38→22:45)
[2020-01-11 05:03] LABS: Basophils # (A) 0.1 k/uL (0-0.2); Basophils % (A) 1 %; Eosinophils # (A) 0.5 k/uL (0-0.7); Eosinophils % (A) 5 %; HCT 23.1 % (34.0-46.0); HGB 7.6 gm/dL (11.4-16.0); Hypochromasia Slight; Lymphocytes # (A) 1.8 k/uL (1.0-4.8); Lymphocytes % (A) 18 %; MCH 29.8 pg (25.0-35.0); MCV 90.2 fL (80.0-100.0); Mean Platelet Volume 8.5; Monocytes # (A) 0.6 k/uL (0-1.0); Monocytes % (A) 6 %; Neutrophils # (A) 6.9 k/uL (1.3-7.7); Neutrophils % (A) 69 %; Platelet Count 239 k/uL (150-450); RBC 2.56 m/uL (3.80-5.40); RDW 14.3 % (11.5-15.5); WBC 9.9 k/uL (3.8-10.6)
[2020-01-11 05:18] LABS: African American GFR (CKD) >90 (>60 ml/min/1.73 sqM); Anion Gap 6 mmol/L; Blood Urea Nitrogen 11 mg/dL (7-17); Calcium 8.2 mg/dL (8.4-10.2); Carbon Dioxide 28 mmol/L (22-30); Chloride 92 mmol/L (98-107); Glucose 120 mg/dL (74-99); Non-African American GFR(CKD) 86 (>60 ml/min/1.73 sqM); Potassium 3.1 mmol/L (3.5-5.1); Sodium 126 mmol/L (137-145)
[2020-01-11] MEDS ORDERED: RIVAROXABAN 15 MG TAB PO SCH (07:30)
[2020-01-11] MEDS ORDERED: Potassium Replacement Protocol 1 EACH MISC MISCELLANE PRN (08:37)
[2020-01-11] MEDS ORDERED: Magnesium Replacement Protocol 1 EACH MISC MISCELLANE PRN (08:38)
[2020-01-11] MEDS: IPRATROPIUM-ALBUTEROL 3 ML NEB INHALATION SCH ×2 (08:53→12:09)
[2020-01-11 09:05] LABS: Magnesium 1.4 mg/dL (1.6-2.3)
[2020-01-11] MEDS: DILTIAZEM CD 180 MG CAP.ER.24H PO SCH (09:42)
[2020-01-11] MEDS: CHOLECALCIFEROL 1,000 UNIT TAB PO SCH (09:42)
[2020-01-11] MEDS: LOSARTAN 50 MG TAB PO SCH (09:42)
[2020-01-11] MEDS: CITALOPRAM HYDROBROMIDE 10 MG TAB PO SCH (09:42)
[2020-01-11] MEDS: HYDROCHLOROTHIAZIDE 25 MG TAB PO SCH (09:42)
[2020-01-11] MEDS: METOPROLOL TARTRATE 25 MG TAB PO SCH ×2 (09:42→22:45)
[2020-01-11] MEDS: ATORVASTATIN 40 MG TAB PO SCH (09:42)
[2020-01-11] MEDS: PANTOPRAZOLE 40 MG/10 ML VIAL IVP SCH ×2 (09:43→22:46)
--- NOTE | 2020-01-11 09:44 | P.PN ---
Subjective HISTORY OF PRESENTING ILLNESS This is a pleasant 89-year-old female past medical history significant for proximal atrial fibrillation on long-term anticoagulation, hypertension, dyslipidemia and hypothyroidism. She follows in the office with Dr. Whaley. She underwent repair of left femur fracture Thursday. She is seen and examined sitting up in the chair in no acute distress. She denies chest pain, shortness of breath, dizziness or palpitations. Telemetry tracings reviewed, she continues to maintain sinus mechanism. Blood pressure 152/73 heart rate 69 afebrile and maintaining oxygen saturation on nasal cannula. Laboratory data reviewed, WBC 9.9, hgb 7.6, plt 239, sodium 126, potassium 3.1, creatinine 0.51. Stool for occult blood positive. Bilateral lower extremity negative for DVT. She has been seen in consult by hematology and they are recommending loading dose of xarelto and then full dose thereafter for at least 6 months. Then resume cardiac appropriate dose. PHYSICAL EXAMINATION CONSTITUTIONAL: No apparent distress. HEENT: Head is normocephalic. Pupils are equal, round. Sclerae anicteric. Mucous membranes of the mouth are moist. No JVD. No carotid bruit. CHEST EXAMINATION: Lungs are clear to auscultation. No chest wall tenderness is noted on palpation or with deep breathing. HEART EXAMINATION: Regular rate and rhythm. S1, S2 heard. Soft systolic ejection murmur at the left sternal border, no gallops or rub. EXTREMITIES: 2+ peripheral pulses, no lower extremity edema and no calf tenderness. ASSESSMENT Fall Anemia with positive stool for occult blood Hypomagnesemia Hypokalemia Left intertrochanteric femoral fracture Paroxysmal atrial fibrillation on long-term anticoagulation, currently maintaining sinus mechanism. Episode of a-fib RVR post-operatively. Hypertension Dyslipidemia Hypothyroidism PLAN Given her significant and progressive hemoglobin drop since admission, we recommend holding anti-coagulation pending further GI investigation. Initially we thought the drop was related to surgery however she has gone from 14 down to 7 and is consistently remaining low. She denies blood in the stool or urine and is not vomiting. Dr. Woodard has been consulted for possible filter placement. We have explained to her the risk of thromboembolic stroke given her history of afib and stopping anti-coagulation. We willc continue to monitor her hemoglobin closely as an outpatient and will resume xarelto in 3-4 weeks if her hemoglobin normalizes. Replace potassium and magnesium per protocol. Nurse Practitioner note has been reviewed, I agree with a documented findings and plan of care. Patient was seen and examined. Objective - Vital Signs Vital signs: Vital Signs Temp 98.2 F 01/11/20 07:00 Pulse 69 01/11/20 07:00 Resp 17 01/11/20 07:00 BP 152/73 01/11/20 07:00 Pulse Ox 94 L 01/11/20 07:00 Intake & Output 01/10/20 01/11/20 01/11/20 18:59 06:59 18:59 Intake Total 600 235.156 Balance 600 235.156 Intake: Intake, IV Titration 235.156 Amount Heparin Sod,Pork in 0.45% 235.156 NaCl 25,000 unit In 0.45 % NaCl 1 250ml.bag @ 14 UNITS/KG/HR 11.748 mls/hr IV .[id number] [facility] Rx#: [id number] Oral 600 Other: Voiding Method Bedside Commode # Voids 1 1 - Labs CBC & Chem 7: 01/11/20 04:53 01/11/20 04:53 Labs: Abnormal Lab Results - Last 24 Hours (Table) 01/10/20 01/10/20 01/11/20 Range/Units 13:38 16:31 04:53 RBC (3.80-5.40) m/uL Hgb (11.4-16.0) gm/dL Hct (34.0-46.0) % APTT 20.7 L (22.0-30.0) sec Sodium (137-145) mmol/L Potassium (3.5-5.1) mmol/L Chloride (98-107) mmol/L Creatinine (0.52-1.04) mg/dL Glucose (74-99) mg/dL Calcium (8.4-10.2) mg/dL Urine Blood Small H (Negative) Urine Bacteria Rare H (None) /hpf Urine Mucus Rare H (None) /hpf Stool Occult Blood Positive H (Negative) 01/11/20 01/11/20 Range/Units 04:53 04:53 RBC 2.56 L (3.80-5.40) m/uL Hgb 7.6 L (11.4-16.0) gm/dL Hct 23.1 L (34.0-46.0) % APTT (22.0-30.0) sec Sodium 126 L (137-145) mmol/L Potassium 3.1 L (3.5-5.1) mmol/L Chloride 92 L (98-107) mmol/L Creatinine 0.51 L (0.52-1.04) mg/dL Glucose 120 H (74-99) mg/dL Calcium 8.2 L (8.4-10.2) mg/dL Urine Blood (Negative) Urine Bacteria (None) /hpf Urine Mucus (None) /hpf Stool Occult Blood (Negative)
[2020-01-11] MEDS ORDERED: FUROSEMIDE 10 MG/ML 2 ML VIAL IV PRN (10:01)
--- NOTE | 2020-01-11 10:04 | CDI ---
Documentation Clarification Form Date: 01/11/2020 09:52:01 AM From: Karey Herzog CCS, CCDS Admit Date: 01/04/2020 11:42:00 PM Patient Name: Vania Clemons Visit Number: [id number] Discharge Date: ATTENTION: The Clinical Documentation Specialists (CDI) and [facility] Coding Staff appreciate your assistance in clarifying documentation. Please respond to the clarification below the line at the bottom and electronically sign. The CDI & [facility] Coding staff will review the response and follow-up if needed. Please note: Queries are made part of the Legal Health Record. If you have any questions, please contact the author of this message via ITS. Dr. Lenard Cobb: Anemia is documented in the 01/06 Attending Progress Note: "Anemia on chronic anemia." History/Risk Factors: Atrial Fibrillation, Hypertension, Hypothyroidism, Former smoker. Clinical indicators: Presented to the ED on 01/03 after a fall at home, diagnosed with a left hip fracture, surgery on 01/05 for reduction & IM rodding of left hip fracture. Diagnosed with a bilateral PE on 01/05 postoperatively. Hemoglobin on admission 01/03: 14.5. 01/05: 10.8*. 01/10: 7.6* Hematocrit on admission 01/03: 45.6. 01/05: 33.7*. 01/10: 23.1* Treatment on 01/05: IV NaCl w/Cefazolin Na, IV Dilaudid, po Xarelto, IV Heparin drip. In order to capture the severity of condition, please clarify the type of anemia and etiology if known:. Acute blood loss anemia o If acute blood loss anemia, please specify if this is an expected outcome of the patient's procedure? Acute on chronic blood loss anemia Chronic blood loss anemia, please specify associated chronic condition if known Drug induced anemia Unable to determine Other, please specify (Last Form Revision: October 2019) [facility]
[2020-01-11] MEDS: POTASSIUM CHLORIDE ER 20 MEQ TAB.ER PO SCH ×2 (10:11→11:50)
[2020-01-11] MEDS: LACTATED RINGERS 1,000 ML IV SCH (10:48)
[2020-01-11] MEDS: MAGNESIUM SULFATE-D5W PMX 1 GM in DEXTROSE/WATER 1 100ML.BAG IVPB SCH ×3 (10:52→13:44)
--- NOTE | 2020-01-11 11:13 | P.PN ---
Progress Note - Text Progress Note Date: 01/11/20 Orthopedics: History of present illness: Patient is a very pleasant 81-year-old female who is seen examined at the bedside for follow-up evaluation in regards to her left hip. She underwent a left hip intramedullary nail fixation for left intertrochanteric hip fracture 01/06/2020. She is currently sitting bedside chair. She's not had any significant change in regards to her left hip. She continues to feel her left hip pain is much better controlled postoperatively. She does have some pain with increased movement of the left hip. She has a working with physical therapy to increase her mobility ambulance and ambulation. Her Wynn catheter was previously discontinued. She's been voiding without difficulty. She is able to eat without difficulty. She is not complaining of any significant pain. She again denies any shortness of breath. She continues to be treated for bilateral pulmonary embolism. She has been on a heparin drip. This was stopped this morning as the patient became anemic. Nursing states they may plan to transfuse a unit of blood. Consultation has been placed with Dr. Woodard to discuss possible [place] filter placement. If this is unable to be performed soon nursing states Dr. Cardenas would like to restart the heparin medication. Previously the Xarelto was also discontinued. Patient is again not complaining of any pain in her thoracic spine. Physical Exam Intramedullary [place] for Intertrochanteric Fracture: Status post surgical day number 5 Patient is examined sitting sitting in a bedside chair Patient is awake and alert, and oriented 3 Vital signs stable Good chest excursion with adequate inspiration and expiration; currently on O2 nasal cannula No signs or symptoms of DVT; no calf pain Lower extremity cuffs not currently currently in place bilaterally Dressing of the left hip is dry and intact with some dried blood; no erythema, purulence, or signs of infection Dressing is taken down during physical examination and reapplied [place] remain intact over the surgical sites Some dried blood over the incision sites; no active drainage No pain with palpation over the surgical sites Full range of motion of ankles bilaterally Dorsiflexion, plantarflexion, and extensor hallucis longus positive sustained bilaterally Neurovascularly intact bilateral lower extremities Capillary refill less than 2 seconds bilateral lower extremities Wynn catheter his been discontinued Pertinent studies: CTA of the chest taken on 01/17/2020: Positive for pulmonary embolus in the first and second order pulmonary artery branches bilaterally; no evidence of right heart strain; evidence of T12 severe wedging compression fracture deformity of approximately 8 mm of retropulsion D-dimer resulted on 01/07/2020: Elevated at 3.87 Chest x-ray taken on 01/07/2020: Improving atelectasis of the right upper lobe Assessment: Status post left intramedullary nail fixation for left intertrochanteric hip fracture Status post fall Bilateral pulmonary embolism Anemia Atrial fibrillation Hypertension Thyroid disorder Age-indeterminate T12 severe wedging compression fracture deformity approximately 8 mm of retropulsion Plan: 1. Patient to remain toe-touch weightbearing on the left lower extremity; patient may work with physical therapy to increase mobility and ambulation; she is encouraged to use walking aids to aid in ambulation 2. CTA imaging of the chest showed evidence of a severe wedge compression fracture deformity at T12. The patient states she is not experiencing any thoracic back pain. She has no thoracic back pain with coughing or sneezing. She has no change in her lower extremities. Patient previously declined any physical examination of her spine. She states she does not wish to have any further imaging or evaluation in regards to her spine she is not currently experiencing any thoracic or lumbar pain. 3. Keep dressing over the left hip clean, dry, and intact; fredis to remain intact at the surgical sites of the left 4. Continue pain control with oral [place] and IV Dilaudid as needed for pain control 5. Patient will continue be seen examined by other medical providers for treatment evaluation in regards to her bilateral pulmonary embolism. Patient's heparin has been stopped due to anemia. Consultation has been placed with Dr. Woodard to discuss possible [place] filter. If this is unable to be performed soon, there may plan to restart the heparin. Orthopedics will not be controlling the anticoagulation and should continue to be monitored by medicine, cardiology, and pulmonology. 6. From an orthopedic standpoint, patient is cleared for discharge once cleared by other medical providers including medicine and pulmonology. 7. Following discharge, we'll plan to follow-up with Dr. Ja Donaldson at [facility] in 2 weeks following discharge
[2020-01-11 11:19] VITALS: BMI 29.0
--- NOTE | 2020-01-11 12:50 | P.PN ---
Subjective Progress Note Date: 01/11/20 This is an 89-year-old female with history of paroxysmal atrial fibrillation, hypertension, hypothyroidism, former nicotine dependence and multiple other medical issues presented to the ER with left hip pain status post fall. Patient reports she was walking turning to go through a doorway and lost her balance. Denies head trauma. Denies syncope, lightheadedness or dizziness. Denies any focal deficits. Denies chest pain, palpitations or shortness of breath. Hip x- ray reported acute comminuted foreshortened and displaced left intertrochanteric femoral fracture, chronic appearing left superior and inferior pubic ramus fractures. Chest x-ray reported right hemidiaphragm elevation, bilateral pleu ral personal scarring in the upper limits of normal size cardiomediastinal silhouette. Coronavirus not detected. Troponins less than 0.012, 0.030. Sodium 129. Afebrile, mild leukocytosis, WBC 11. BUN 20, creatinine 1.1 on admission down to 0.75. 01/06/2020 scheduled for surgery this morning with orthopedics. EKG reported sinus rhythm with first-degree AV block, nonspecific changes. Cardiac enzymes 2 negative, INR 0.9. Hemoglobin 10.8, platelets 176. Echo pending. Afebrile, normal WBC.VSS. 01/09/2020 Continues on heparin drip for acute bilateral PE. maintaining O2 sats in the 90s on 2 L nasal cannula. Denies chest pain, palpitations or shortness of breath. Maintained on Lopressor, Cardizem, telemetry reporting sinus rhythm. Pain currently controlled. Positive bowel movement. 01/10/2020 Continues on heparin drip. Some concern over possible Xarelto failure, but Daughter informed RN , that she doesn't think her mom was consistently taking Xarelto. Pulmonary requesting heparin drip being maintained for another 24 hours and consulted hematology. Maintaining O2 sats in the 90s on 2 L nasal cannula. Denies chest pain, palpitations. 01/11/2020 hemoglobin 7.6, platelets 239, asymptomatic .no hemoptysis, no hematochezia, no melena , no hematuria. Anticoagulation temporarily on hold, being discussed by multiple consults. Evaluated by both GI and vascular re p otential filter placement. No bowel movement, passing flatus. Pain controlled. Potassium 3.1. Magnesium 1.4 Telemetry sinus rhythm. Maintaining O2 sats in the 90s on 2 L nasal cannula.VSS. Telemetry sinus rhythm Denies chest pain, palpitations or shortness of breath. Denies lightheadedness, dizziness or focal deficits. Objective - Vital Signs Vital signs: Vital Signs Temp 98.2 F 01/11/20 07:00 Pulse 68 01/11/20 09:07 Resp 17 01/11/20 07:00 BP 152/73 01/11/20 07:00 Pulse Ox 94 L 01/11/20 07:00 Intake & Output 01/10/20 01/11/20 01/11/20 18:59 06:59 18:59 Intake Total 600 235.156 Balance 600 235.156 Weight 83.915 kg Intake: Intake, IV Titration 235.156 Amount Heparin Sod,Pork in 0.45% 235.156 NaCl 25,000 unit In 0.45 % NaCl 1 250ml.bag @ 14 UNITS/KG/HR 11.748 mls/hr IV .[id number] [facility] Rx#: [id number] Oral 600 Other: Voiding Method Bedside Commode Bedside Commode # Voids 1 1 - Exam VITAL SIGNS: As above GENERAL: Sitting up in bed, no acute distress HEENT: Conjunctivae normal. eyes normal. NECK: No JVD. No thyroid enlargement. No LNs CARDIOVASCULAR: S1, S2 regular. Systolic murmur RESPIRATION: Breath sounds diminished in the bases. No rhonchi or crackles. ABDOMEN: Soft, nontender . No guarding. no masses palpable. Bowel sounds heard. LEGS: Left lower extremity dressing clean dry and intact, no calf tenderness, positive pulses PSYCHIATRY: Alert and oriented X3, mood and affect normal. NERVOUS SYSTEM: Cranial N 2-12 grossly normal. Moves all 4 limbs. No focal deficits. Strength and sensation grossly intact.. Skin: no rash - Labs CBC & Chem 7: 01/11/20 04:53 01/11/20 04:53 Labs: Abnormal Lab Results - Last 24 Hours (Table) 01/10/20 01/10/20 01/11/20 Range/Units 13:38 16:31 04:53 RBC (3.80-5.40) m/uL Hgb (11.4-16.0) gm/dL Hct (34.0-46.0) % APTT 20.7 L (22.0-30.0) sec Sodium (137-145) mmol/L Potassium (3.5-5.1) mmol/L Chloride (98-107) mmol/L Creatinine (0.52-1.04) mg/dL Glucose (74-99) mg/dL Calcium (8.4-10.2) mg/dL Magnesium (1.6-2.3) mg/dL Urine Blood Small H (Negative) Urine Bacteria Rare H (None) /hpf Urine Mucus Rare H (None) /hpf Stool Occult Blood Positive H (Negative) 01/11/20 01/11/20 01/11/20 Range/Units 04:53 04:53 04:53 RBC 2.56 L (3.80-5.40) m/uL Hgb 7.6 L (11.4-16.0) gm/dL Hct 23.1 L (34.0-46.0) % APTT (22.0-30.0) sec Sodium 126 L (137-145) mmol/L Potassium 3.1 L (3.5-5.1) mmol/L Chloride 92 L (98-107) mmol/L Creatinine 0.51 L (0.52-1.04) mg/dL Glucose 120 H (74-99) mg/dL Calcium 8.2 L (8.4-10.2) mg/dL Magnesium 1.4 L (1.6-2.3) mg/dL Urine Blood (Negative) Urine Bacteria (None) /hpf Urine Mucus (None) /hpf Stool Occult Blood (Negative) Assessment and Plan Assessment: acute comminuted foreshortened and displaced left intertrochanteric femoral fracture, status post fall Acute bilateral pulmonary embolism Acute hypoxic respiratory failure secondary to the above Acute post blood loss anemia chronic appearing left superior and inferior pubic ramus fractures. Paroxysmal atrial fibrillation, currently sinus rhythm, episode of A. fib with RVR postop. Hypertension Hypothyroidism Former nicotine dependence Hypomagnesemia Hypokalemia Plan: Continue on current medication regime ,monitoring and symptomatic treatment. 1 Unit of packed RBCs ordered. Anticoagulation on hold, currently being discussed among multiple consults with further recommendations to follow. Aggressive pulmonary toileting with Incentive spirometer reinforced. Potassium and magnesium supplementation ordered. Close monitoring of CBC, platelets, electrolytes with repeat labs ordered for a.m. discharge planning in progress tentatively for tomorrow to subacute rehab The impression and plan of care has been dictated as directed. : I performed a history and examination of this patient, discussed the same with the dictator. I agree with the dictator's note ,documented as a scribe. Any additional findings or plans will be noted.
[2020-01-11] MEDS: DOCUSATE 100 MG CAP PO SCH ×2 (12:52→22:45)
--- NOTE | 2020-01-11 13:10 | CONS ---
CONSULTATION This is an 89-year-old pleasant female. Patient has been admitted to [facility] with history of left hip fracture. Patient had surgery done by Dr. Donaldson, left hip fracture. Patient had a CT scan of the chest which shows bilateral pulmonary embolism. The patient had an ultrasound of both legs. No evidence of DVT. Patient was found to have a guaiac-positive blood in the stool. No evidence of active melena or lower or upper GI bleed. MEDICAL HISTORY: History of atrial fibrillation, hypertension, thyroid disorder. SURGICAL HISTORY: Patient had a left knee replacement in the past. Cataract surgery in the past. PERSONAL HISTORY: Former smoker. Past alcohol used in the past. PHYSICAL EXAMINATION: Patient was seen in her room, lying comfortably in bed. NECK: Supple. CHEST: Clear to auscultation. ABDOMEN: Soft. Femoral pulses are present. IMPRESSION: History of PE, bilateral. No evidence of DVT, history of total hip surgery done. I was consulted for placement of a filter. I have discussed with Dr. Briseida Carcamo, the flea market seller and clinically she has no evidence of upper or lower GI bleed. Also discussed with Dr. ALISSON Cardenas, patient needs to be anticoagulated because of her atrial fibrillation. Since there is no evidence of any upper GI or lower GI bleed and patient most likely due to fracture of the hip. At this point, we will wait for filter placement. If she has any evidence of GI bleed, we will consider placing a filter. I have discussed with the Dr. Briseida Carcamo and Dr. Cardenas, they all agreed. MMODL / IJN: [id number] /
[2020-01-11] MEDS: MULTIVITAMINS, THERA 1 EACH TAB PO SCH (13:44)
--- NOTE | 2020-01-11 14:15 | P.PN ---
Subjective Progress Note Date: 01/11/20 Principal diagnosis: PE status post hip surgery In follow-up today patient is doing well after surgery, no unusual pain, bleeding, bruising is stable. She denies shortness of breath, unusual cough or hemoptysis. Objective - Vital Signs Vital signs: Vital Signs Temp 98.2 F 01/11/20 07:00 Pulse 68 01/11/20 09:07 Resp 17 01/11/20 07:00 BP 152/73 01/11/20 07:00 Pulse Ox 94 L 01/11/20 07:00 Intake & Output 01/10/20 01/11/20 01/11/20 18:59 06:59 18:59 Intake Total 600 235.156 Balance 600 235.156 Weight 83.915 kg Intake: Intake, IV Titration 235.156 Amount Heparin Sod,Pork in 0.45% 235.156 NaCl 25,000 unit In 0.45 % NaCl 1 250ml.bag @ 14 UNITS/KG/HR 11.748 mls/hr IV .[id number] COUNTS INCLUDE 234 BEDS AT THE [facility] Rx#: [id number] Oral 600 Other: Voiding Method Bedside Commode Bedside Commode # Voids 1 1 2 - Constitutional General appearance: Present: cooperative, no acute distress, obese - EENT Eyes: Present: anicteric sclerae, EOMI ENT: Present: hearing grossly normal - Respiratory Respiratory: bilateral: CTA, diminished - Cardiovascular Heart sounds: normal: S1, S2 - Gastrointestinal General gastrointestinal: Present: soft - Neurologic Neurologic: Present: CNII-XII intact - Musculoskeletal Musculoskeletal: Present: generalized weakness - Psychiatric Psychiatric Comment(s): Flat affect Psychiatric: Present: A&O x's 3, intact judgment & insight - Labs CBC & Chem 7: 01/11/20 04:53 01/11/20 04:53 Labs: Abnormal Lab Results - Last 24 Hours (Table) 01/10/20 01/10/20 01/11/20 Range/Units 13:38 16:31 04:53 RBC (3.80-5.40) m/uL Hgb (11.4-16.0) gm/dL Hct (34.0-46.0) % APTT 20.7 L (22.0-30.0) sec Sodium (137-145) mmol/L Potassium (3.5-5.1) mmol/L Chloride (98-107) mmol/L Creatinine (0.52-1.04) mg/dL Glucose (74-99) mg/dL Calcium (8.4-10.2) mg/dL Magnesium (1.6-2.3) mg/dL Urine Blood Small H (Negative) Urine Bacteria Rare H (None) /hpf Urine Mucus Rare H (None) /hpf Stool Occult Blood Positive H (Negative) 01/11/20 01/11/20 01/11/20 Range/Units 04:53 04:53 04:53 RBC 2.56 L (3.80-5.40) m/uL Hgb 7.6 L (11.4-16.0) gm/dL Hct 23.1 L (34.0-46.0) % APTT (22.0-30.0) sec Sodium 126 L (137-145) mmol/L Potassium 3.1 L (3.5-5.1) mmol/L Chloride 92 L (98-107) mmol/L Creatinine 0.51 L (0.52-1.04) mg/dL Glucose 120 H (74-99) mg/dL Calcium 8.2 L (8.4-10.2) mg/dL Magnesium 1.4 L (1.6-2.3) mg/dL Urine Blood (Negative) Urine Bacteria (None) /hpf Urine Mucus (None) /hpf Stool Occult Blood (Negative) Assessment and Plan (1) Left displaced femoral neck fracture Narrative/Plan: S/P surgery, defer mgmt to Orthopedics. Patient is doing well, the surgical site looks good Current Visit: Yes Status: Acute Priority: High Code(s): S72.002A - FRACTURE OF UNSP PART OF NECK OF LEFT FEMUR, INIT SNOMED Code(s): 4766281 (2) Bilateral pulmonary embolism Narrative/Plan: Recommendation is for loading dose xarelto (15 mg by mouth twice a day 21 days) and then cont at full dose anticoagulation for at least 6 mo for provoked PE (20 mg by mouth with the largest meal of the day). Pt can resume her lower dose per Cardiology for a-fib at that time. Doppler of BLE ordered, negative for DVT Current Visit: Yes Status: Acute Priority: High Code(s): I26.99 - OTHER PULMONARY EMBOLISM WITHOUT ACUTE COR PULMONALE SNOMED Code(s): 15018229 (3) A-fib Narrative/Plan: Pt on xarelto for the same. Dose needs to be adjusted for acute PE. Follow up with Cardiology for dosing recs regarding dose after completion of 6mo full dose anticoagulation for PE. Current Visit: Yes Status: Chronic Priority: Medium Code(s): I48.91 - UNSPECIFIED ATRIAL FIBRILLATION SNOMED Code(s): 78776080 (4) Anemia Narrative/Plan: Suspect that there is a degree of dilution as patient is status post hip surgery. There was probably a very slight degree of blood loss. Also patient is 89 years old and her marrow response is not as efficient. Suspect patient's hemoglobin is probably in the 10-11 range, I do not have any evidence to support the same. Hemoglobin is stable at this time. Due to acute PE, recommendation would be for patient to continue on a heparin drip with close monitoring of the CBC or, if it is suspected that the patient is acutely bleeding would recommend IVC filter placement. Current Visit: Yes Status: Acute Priority: High Code(s): D64.9 - ANEMIA, UNSPECIFIED SNOMED Code(s): 680294137 Plan: Case was discussed with Internal [facility] and [facility] [employer]ATOR Time with Patient: Greater than 30
--- NOTE | 2020-01-11 14:45 | P.PN ---
Subjective Progress Note Date: 01/11/20 Principal diagnosis: Acute hypoxic respiratory failure Acute pulmonary embolism bilateral with acute hypoxic respiratory failure Chronic atrial fibrillation Status post fall and left intertrochanteric fracture status post intramedullary nail on 01/06/2020 Status post fall Hypertension hypertensive cardiovascular disease Dyslipidemia Hypothyroidism Morbid obesity 01/11/2020, patient seen and evaluated examined asymptomatic denies any chest pain or shortness of breath noted that hemoglobin is down, patient has gram- positive her stool heparin has been on hold Xarelto has been on hold since yesterday, vascular surgery has evaluated patient no plans for IVC filter, dup richelle ultrasound lower extremity has been negative, GI services have not evaluated this patient. We'll start heparin monitor hemoglobin closely and daily basis pending further recommendation from GI. Continue PPI in the meantime 01/10/2020, patient seen eval examined during the rounds has been doing well she is on 2 L nasal cannula denies any chest pain denies any shortness of breath, patient has bilateral significant pulmonary embolism has been on IV heparin, case has been discussed with cardiovascular services they feel that patient has been on suboptimal dose of Xarelto and may not be taking it more regularly in the past, and can go back on Xarelto initial 15 mg 2 times a day subsequently 20 mg daily, will also consult hematology, heparin can be stopped tomorrow and Xarelto can be initiated 01/09/2020, patient seen eval reexamined during the round he is she's comfortable on 2 L oxygen he denies any chest pain denies any shortness of breath respiratory status stable patient remains on heparin drip, it appears that patient took last dose of Xarelto on January 03 the day of fracture of hip, and she developed pulmonary embolism on night of , patient has been on heparin drip since , we'll give another 48 hours of heparin infusion and then will start Eliquis 5 mg bid, patient appears to be well anticoagulated hemoglobin is stable platelet counts are stable agree with starting physical therapy and rehab as planned This is a 89-year-old female who admitted into the hospital after a fall Of left intertrochanteric fracture on 01/05 she ended up in an intramedullary nail placed, which was performed successfully postop day #0 at night she started developing shortness of breath and desaturation d-dimer was checked that was noted to be very high, patient has been ordered a computed tomography scan of the chest which is positive for bilateral. Patient has been started on IV heparin, she is currently complaining of back pain no chest pain or shortness of breath, chest CT scan has been reviewed and confirmed acute pulmonary embolism Objective - Vital Signs Vital signs: Vital Signs Temp 98.2 F 01/11/20 07:00 Pulse 68 01/11/20 09:07 Resp 17 01/11/20 07:00 BP 152/73 01/11/20 07:00 Pulse Ox 94 L 01/11/20 07:00 Intake & Output 01/10/20 01/11/20 01/11/20 18:59 06:59 18:59 Intake Total 600 235.156 Balance 600 235.156 Weight 83.915 kg Intake: Intake, IV Titration 235.156 Amount Heparin Sod,Pork in 0.45% 235.156 NaCl 25,000 unit In 0.45 % NaCl 1 250ml.bag @ 14 UNITS/KG/HR 11.748 mls/hr IV .[id number] [facility] Rx#: [id number] Oral 600 Other: Voiding Method Bedside Commode Bedside Commode # Voids 1 1 2 - Exam - Constitutional General appearance: Present: disheveled, morbidly obese - EENT Eyes: Present: EOMI, PERRLA ENT: Present: hard of hearing Ears: bilateral: normal - Neck Carotids: bilateral: upstroke normal Thyroid: bilateral: normal size - Respiratory Respiratory: bilateral: CTA (Upper lungs), diminished (Bilaterally at the bases) - Cardiovascular Rhythm: regular Heart sounds: normal: S1, S2 - Gastrointestinal General gastrointestinal: Present: normal bowel sounds, soft - Neurologic Neurologic: Present: CNII-XII intact - Musculoskeletal Musculoskeletal: Present: gait normal, generalized weakness, strength equal bilaterally - Psychiatric Psychiatric: Present: A&O x's 3, appropriate affect, intact judgment & insight - Labs CBC & Chem 7: 01/11/20 04:53 01/11/20 04:53 Labs: Abnormal Lab Results - Last 24 Hours (Table) 01/10/20 01/10/20 01/11/20 Range/Units 13:38 16:31 04:53 RBC (3.80-5.40) m/uL Hgb (11.4-16.0) gm/dL Hct (34.0-46.0) % APTT 20.7 L (22.0-30.0) sec Sodium (137-145) mmol/L Potassium (3.5-5.1) mmol/L Chloride (98-107) mmol/L Creatinine (0.52-1.04) mg/dL Glucose (74-99) mg/dL Calcium (8.4-10.2) mg/dL Magnesium (1.6-2.3) mg/dL Urine Blood Small H (Negative) Urine Bacteria Rare H (None) /hpf Urine Mucus Rare H (None) /hpf Stool Occult Blood Positive H (Negative) 01/11/20 01/11/20 01/11/20 Range/Units 04:53 04:53 04:53 RBC 2.56 L (3.80-5.40) m/uL Hgb 7.6 L (11.4-16.0) gm/dL Hct 23.1 L (34.0-46.0) % APTT (22.0-30.0) sec Sodium 126 L (137-145) mmol/L Potassium 3.1 L (3.5-5.1) mmol/L Chloride 92 L (98-107) mmol/L Creatinine 0.51 L (0.52-1.04) mg/dL Glucose 120 H (74-99) mg/dL Calcium 8.2 L (8.4-10.2) mg/dL Magnesium 1.4 L (1.6-2.3) mg/dL Urine Blood (Negative) Urine Bacteria (None) /hpf Urine Mucus (None) /hpf Stool Occult Blood (Negative) Assessment and Plan Assessment: Acute hypoxic respiratory failure Acute pulmonary embolism bilateral with acute hypoxic respiratory failure Heme positive stool and possibly ongoing blood loss with acute on chronic anemia Chronic atrial fibrillation Status post fall and left intertrochanteric fracture status post intramedullary nail on 01/06/2020 Status post fall Hypertension hypertensive cardiovascular disease Dyslipidemia Hypothyroidism Morbid obesity Plan: Continue supplemental oxygen Deep breathing exercise incentive spirometry Continue heparin for now until evaluated by GI Monitor and observe PTT, hemoglobin, platelet closely Time with Patient: Greater than 30
[2020-01-11 17:27] LABS: % Iron Saturation 20.66 (12.00-45.00)
[2020-01-11] MEDS ORDERED: RIVAROXABAN 20 MG TAB PO SCH (17:30)
[2020-01-11] MEDS: RIVAROXABAN 15 MG TAB PO SCH (17:31)
--- NOTE | 2020-01-11 17:33 | CONS ---
CONSULTATION DATE OF DICTATION: 01/11/2020 REASON FOR CONSULTATION: Severe anemia and Hemoccult-positive stool. HISTORY OF PRESENT ILLNESS: The patient is an 89-year-old pleasant white female who was admitted to the hospital with a left hip fracture about 3 days ago. She underwent surgery and patient is undergoing rehab therapy. Two days ago she was diagnosed with acute bilateral pulmonary embolism and was started on IV heparin and today was started on Xarelto. At the time of admission to the hospital her hemoglobin was 14, and she gradually dropped her hemoglobin over the past 5 days and today hemoglobin is 7.2 g/dL. However, in the meantime she denies any abdominal pain, reports no rectal bleeding or melena. She was noted to have Hemoccult-positive stool and hence we are consulted for concern about GI bleed. Prior to hospitalization, the patient was not having any GI symptoms. No nausea, vomiting. No abdominal pain. No heartburn. She denies any prior history of peptic ulcer disease. Denies any recent NSAID use. Her last EGD/colonoscopy was several years ago. PAST MEDICAL HISTORY: Significant for atrial fibrillation, hypertension, hyperlipidemia, hypothyroidism, recent left hip fracture. HOME MEDICATIONS: Home medications include HydroDIURIL, Synthroid, Xarelto, Crestor, vitamin D3, Celexa, Cartia and olmesartan. ALLERGIES: NONE. PAST SURGICAL HISTORY: Appendectomy, cholecystectomy, hysterectomy, left knee replacement and left hip surgery. SOCIAL HISTORY: No smoking or alcohol use. FAMILY HISTORY: Unremarkable. REVIEW OF SYSTEMS: CARDIOPULMONARY: She denies any chest pain or shortness of breath. GENITOURINARY: No dysuria or hematuria. MUSCULOSKELETAL: Unremarkable. SKIN: Unremarkable. ENDOCRINE: Unremarkable. PSYCHIATRIC: Unremarkable. NEUROLOGY: Unremarkable. ENT/VISION: Unremarkable. CONSTITUTIONAL: No recent weight loss. MUSCULOSKELETAL: Left hip pain. No fever, chills, night sweats. PHYSICAL EXAMINATION: She appears comfortable. No apparent distress. Vital signs are stable. Blood pressure is 133/86 pulse rate 66, temperature 98.2. HEENT examination unremarkable. Conjunctivae pink. Sclerae anicteric. Oral cavity no lesions. NECK: No JVD or lymph node enlargement. CHEST: Clear to auscultation. HEART: Regular rate and rhythm. ABDOMEN: Soft. non-distended. Liver and spleen not palpable. Bowel sounds are positive. No organomegaly. EXTREMITIES: Left hip pain, but no pedal edema. NEUROLOGIC: Alert and oriented x3. No focal deficits. LABS: Labs done at the time of admission to the hospital: hemoglobin was 14.2 and today it is 7.6. WBC and platelets are within normal limits. AST and ALT are 82 and 79, respectively. T-bilirubin and alkaline phosphatase are normal. BUN was 11, creatinine 0.51. Stool Hemoccult was positive. IMPRESSION: 1. Anemia, with gradual drop in hemoglobin over the last 5 days' duration. At the time of admission to the hospital 5 days ago her hemoglobin was 14 and gradually it dropped to 7.2 g/dL. Clinically she does not have any evidence of active ongoing bleeding. She did have stool occult blood positive but no gross GI bleed. Hemodynamically remains stable. No prior history of peptic ulcer disease or recent NSAID use. Part of the anemia could be related to recent hip fracture. 2. Atrial fibrillation, on Xarelto, which was on hold for the hip surgery. Currently back on Xarelto. 3. Bilateral pulmonary embolism diagnosed 2 years ago; was on IV heparin, which is being switched to Xarelto today. 4. Mild elevation of serum transaminases. RECOMMENDATIONS: I had a lengthy discussion with the patient regarding ongoing anemia. There is significant drop in her hemoglobin, but clinically she does not have any active GI bleed. She was noted to have Hemoccult-positive stool, but no melena or rectal bleeding. I had a lengthy discussion with the patient. I did not recommend any endoscopic intervention at the present time. For now we will continue to monitor her hemoglobin on a daily basis and decide if she needs any workup. Since she is not having any active bleeding, I would recommend continuing on anticoagulation as recommended by Cardiology. Will monitor CBC on a daily basis and will follow with you closely. Thank you for this consultation. MMODL / IJN: [id number] /
[2020-01-11 17:36] LABS: Ferritin 231.3 ng/mL (10.0-291.0)
[2020-01-11] MEDS: SENNOSIDES-DOCUSATE SODIUM 1 EACH TAB PO SCH (22:45)
[2020-01-11] MEDS: SODIUM CHLORIDE 0.9% 1,000 ML IV SCH (22:51)
[2020-01-12] MEDS: IPRATROPIUM-ALBUTEROL 3 ML NEB INHALATION SCH ×2 (00:23→08:29)
[2020-01-12] MEDS: SODIUM CHLORIDE 0.9% 1,000 ML IV SCH (04:46)
[2020-01-12] MEDS: LEVOTHYROXINE 112 MCG TAB PO SCH (05:48)
[2020-01-12] MEDS: HYDROcodone/APAP 5-325MG 1 EACH TAB PO PRN ×2 (05:48→12:11)
[2020-01-12] MEDS: RIVAROXABAN 15 MG TAB PO SCH (07:30)
[2020-01-12 08:15] VITALS: BP 96/58; PULSE 60; RESP 15; TEMP 97.9
[2020-01-12 08:31] LABS: Basophils # (A) 0.1 k/uL (0-0.2); Basophils % (A) 1 %; Eosinophils # (A) 0.6 k/uL (0-0.7); Eosinophils % (A) 5 %; HCT 30.9 % (34.0-46.0); Hypochromasia Slight; Lymphocytes % (A) 15 %; MCH 29.2 pg (25.0-35.0); MCHC 31.5 g/dL (31.0-37.0); MCV 92.9 fL (80.0-100.0); Mean Platelet Volume 8.3; Monocytes # (A) 0.7 k/uL (0-1.0); Monocytes % (A) 5 %; Neutrophils # (A) 9.7 k/uL (1.3-7.7); Neutrophils % (A) 73 %; Platelet Count 288 k/uL (150-450); RBC 3.33 m/uL (3.80-5.40); RDW 14.7 % (11.5-15.5); WBC 13.3 k/uL (3.8-10.6)
[2020-01-12 08:41] LABS: African American GFR (CKD) >90 (>60 ml/min/1.73 sqM); Anion Gap 7 mmol/L; Blood Urea Nitrogen 12 mg/dL (7-17); Calcium 8.5 mg/dL (8.4-10.2); Carbon Dioxide 28 mmol/L (22-30); Chloride 93 mmol/L (98-107); Glucose 132 mg/dL (74-99); Magnesium 1.8 mg/dL (1.6-2.3); Non-African American GFR(CKD) 83 (>60 ml/min/1.73 sqM); Potassium 3.6 mmol/L (3.5-5.1); Sodium 128 mmol/L (137-145)
[2020-01-12 08:42] LABS: HGB 9.7 gm/dL (11.4-16.0)
--- NOTE | 2020-01-12 08:59 | P.PN ---
Subjective HISTORY OF PRESENTING ILLNESS This is a pleasant 89-year-old female past medical history significant for proximal atrial fibrillation on long-term anticoagulation, hypertension, dyslipidemia and hypothyroidism. She follows in the office with Dr. Whaley. She is seen and examined sitting up in the chair eating breakfast. She denies chest pain, shortness of breath, dizziness or palpitations. She denies any black or bloody stools and has no vomiting. Blood pressure 96/58 heart rate 60 afebrile and maintaining oxygen saturation on room air. Laboratory data reviewed, WBC 13.3, hemoglobin 9.7 up from 7.6 after 1 unit of PRBC, platelets 288, sodium 128, potassium 3.6, creatinine 0.56 and magnesium 1.8. She has been seen in evaluation by GI service and there is no plan for any endoscopy at this time. Lengthy discussions had with Dr. Fountain regarding moving forward with anticoagulation. CT films of the pulmonary embolism were reviewed personally by Dr. Cardenas. PHYSICAL EXAMINATION CONSTITUTIONAL: No apparent distress. HEENT: Head is normocephalic. Pupils are equal, round. Sclerae anicteric. Mucous membranes of the mouth are moist. No JVD. No carotid bruit. CHEST EXAMINATION: Lungs are clear to auscultation. No chest wall tenderness is noted on palpation or with deep breathing. HEART EXAMINATION: Regular rate and rhythm. S1, S2 heard. Soft systolic ejection murmur at the left sternal border, no gallops or rub. EXTREMITIES: 2+ peripheral pulses, no lower extremity edema and no calf tenderness. ASSESSMENT Fall Anemia with positive stool for occult blood Hypomagnesemia, improved Hypokalemia, improved Hyponatremia Left intertrochanteric femoral fracture Paroxysmal atrial fibrillation on long-term anticoagulation, currently maintaining sinus mechanism. Episode of a-fib RVR post-operatively. Hypertension Dyslipidemia Hypothyroidism PLAN Given the patient's persistent anemia we recommend Xarelto 20 mg at bedtime. Although this is an unconventional dose for treatment for PE the CT reviewed personally by Dr. Cardenas is not overly convincing for significant PE. He feels given her anemia this is the dose she should be discharged on. The risks and benefits have been explained in great detail to the patient. Dr. Cardenas spoke directly with Dr. Fountain and explained the rationale for this dosing and they are in agreement. She has already received a dose of 15 mg last night and this morning. Xarelto 20 mg to be initiated starting tomorrow. Lopressor was added for rate control secondary to post-operative episode of a- fib with RVR. This has been well controlled for the last few days and her blood pressure is borderline low. This can be discontinued as an outpatient. Stable for discharge to rehab today. Check CBC and electrolytes in 3 days. Nurse Practitioner note has been reviewed, I agree with a documented findings and plan of care. Patient was seen and examined. Objective - Vital Signs Vital signs: Vital Signs Temp 97.9 F 01/12/20 07:00 Pulse 60 01/12/20 07:00 Resp 15 01/12/20 07:00 BP 96/58 01/12/20 07:00 Pulse Ox 93 L 01/12/20 07:00 Intake & Output 01/11/20 01/12/20 01/12/20 18:59 06:59 18:59 Intake Total 310 Balance 310 Weight 83.915 kg Intake: Blood Product 310 Rc Pheresis 2 As3 Unit 310 [id number] Other: Voiding Method Bedside Commode Diaper # Voids 2 1 - Labs CBC & Chem 7: 01/12/20 07:52 01/12/20 07:52 Labs: Abnormal Lab Results - Last 24 Hours (Table) 01/11/20 01/11/20 01/12/20 Range/Units 04:53 13:02 07:52 WBC 13.3 H (3.8-10.6) k/uL RBC 3.33 L (3.80-5.40) m/uL Hgb 9.7 L D (11.4-16.0) gm/dL Hct 30.9 L (34.0-46.0) % Neutrophils # 9.7 H (1.3-7.7) k/uL Sodium (137-145) mmol/L Chloride (98-107) mmol/L Glucose (74-99) mg/dL Magnesium 1.4 L (1.6-2.3) mg/dL Vitamin B12 1251.0 H (200.0-944.0) pg/mL Crossmatch See Detail 01/12/20 Range/Units 07:52 WBC (3.8-10.6) k/uL RBC (3.80-5.40) m/uL Hgb (11.4-16.0) gm/dL Hct (34.0-46.0) % Neutrophils # (1.3-7.7) k/uL Sodium 128 L (137-145) mmol/L Chloride 93 L (98-107) mmol/L Glucose 132 H (74-99) mg/dL Magnesium (1.6-2.3) mg/dL Vitamin B12 (200.0-944.0) pg/mL Crossmatch
[2020-01-12] MEDS: PANTOPRAZOLE 40 MG/10 ML VIAL IVP SCH (09:34)
[2020-01-12] MEDS: CITALOPRAM HYDROBROMIDE 10 MG TAB PO SCH (09:35)
[2020-01-12] MEDS: ATORVASTATIN 40 MG TAB PO SCH (09:35)
[2020-01-12] MEDS: CHOLECALCIFEROL 1,000 UNIT TAB PO SCH (09:35)
[2020-01-12] MEDS: DILTIAZEM CD 180 MG CAP.ER.24H PO SCH (09:35)
[2020-01-12] MEDS: DOCUSATE 100 MG CAP PO SCH (09:35)
[2020-01-12] MEDS: LOSARTAN 50 MG TAB PO SCH (09:35)
--- NOTE | 2020-01-12 11:48 | P.PN ---
Subjective Progress Note Date: 01/12/20 This patient is an 89- year old female that sustained a left four-part intertrochanteric hip fracture that is status-post closed reduction and intramedullary rodding of her left hip on 01/06/[address] Ja Donaldson. CTA of the chest on 01/07/20 revealed bilateral pulmonary embolism. She was started on a heparin drip. CTA chest also revealed evidence of a severe T12 compression fracture deformity. Patient is not experiencing any thoracic back pain or any symptoms in her extremities. Patient does not want any evaluation in regards to her thoracic spine. 01/09/20: Patient is examined bedside this morning. She has been transitioned to Xarelto 20mg at bedtime for anti-coagulation, per Dr. Cardenas and Dr. Fountain. She states her left hip is mildly painful today. She has been up with physical therapy today. She states she is not putting any weight on her left lower extremity. She denies chest pain, shortness of breath, nausea, vomiting, fevers, chills, numbness or tingling of the left lower extremity. Vital signs stable. Objective - Vital Signs Vital signs: Vital Signs Temp 97.9 F 01/12/20 07:00 Pulse 60 01/12/20 07:00 Resp 15 01/12/20 07:00 BP 96/58 01/12/20 07:00 Pulse Ox 93 L 01/12/20 07:00 Intake & Output 01/11/20 01/12/20 01/12/20 18:59 06:59 18:59 Intake Total 310 Balance 310 Weight 83.915 kg Intake: Blood Product 310 Rc Pheresis 2 As3 Unit 310 [id number] Other: Voiding Method Bedside Commode Bedside Commode Diaper Diaper # Voids 2 1 - Exam On examination, the patient is sitting up in a bedside chair in no apparent distress. She is alert and oriented 3. Her breathing appears nonlabored. On inspection of the left hip, there is a clean and intact dressing in place, with a small amount of serous drainage noted on the dressing. Dressing is taken down and reveals benign surgical incisions with intact fredis. There is no surrounding erythema, warmth, fluctuance near the incisions. There is mild pain to palpation of the left hip. Patient has good strength and range of motion of her left ankle. There is 2+ pitting edema of the left foot. Left lower extremity warm and well perfused with brisk capillary refill distally. Motor and sensory function appear to be intact to the left lower extremity. Calf is soft and nontender. - Labs CBC & Chem 7: 01/12/20 07:52 01/12/20 07:52 Labs: Abnormal Lab Results - Last 24 Hours (Table) 01/11/20 01/11/20 01/12/20 Range/Units 04:53 13:02 07:52 WBC 13.3 H (3.8-10.6) k/uL RBC 3.33 L (3.80-5.40) m/uL Hgb 9.7 L D (11.4-16.0) gm/dL Hct 30.9 L (34.0-46.0) % Neutrophils # 9.7 H (1.3-7.7) k/uL Sodium (137-145) mmol/L Chloride (98-107) mmol/L Glucose (74-99) mg/dL Vitamin B12 1251.0 H (200.0-944.0) pg/mL Crossmatch See Detail 01/12/20 Range/Units 07:52 WBC (3.8-10.6) k/uL RBC (3.80-5.40) m/uL Hgb (11.4-16.0) gm/dL Hct (34.0-46.0) % Neutrophils # (1.3-7.7) k/uL Sodium 128 L (137-145) mmol/L Chloride 93 L (98-107) mmol/L Glucose 132 H (74-99) mg/dL Vitamin B12 (200.0-944.0) pg/mL Crossmatch Assessment and Plan Assessment: Left intertrochanteric hip fracture status-post closed reduction and intramedullary rodding on this 01/06/20. Post-operative day #6. Bilateral pulmonary embolism, currently transitioned from heparin drip to oral anti-coagulation. Plan: - Toe-touch weightbearing on the left lower extremity. Up with assistance, with a walker. - Physical therapy for gait and balance training. - Daily dressing changes, and PRN as dressing becomes saturated. - Bilateral pulmonary embolism will be managed per pulmonology, cardiology, and internal medicine. Current plan is to transition patient to xarelto 20mg QHS, per Dr. Cardenas and Dr. Fountain. Orthopedics will not be managing anti-coagulation. - Continue pain management with [place] and IV diluadid as needed. - Anticipate discharge to subacute rehab today. Patient will follow-up in the office in two weeks with Dr. Ja Donaldson for repeat x-rays of the left hip and staple removal.
--- NOTE | 2020-01-12 11:58 | P.DS ---
Providers Date of admission: 01/04/20 23:42 Expected date of discharge: 01/12/20 Attending physician: Lenard Cobb Consults: 01/05/20 08:11 Consult Physician Routine Consulting Provider: Ja Donaldson Consult Reason/Comments: Hip Fracture Do you want consulting provider notified?: Yes Placement Type Exists?: Yes 01/05/20 14:26 Consult Physician Routine Consulting Provider: Keke Brown Consult Reason/Comments: cardiology consult/clearance Do you want consulting provider notified?: Yes 01/07/20 11:20 Consult Physician Urgent Consulting Provider: Niels Fountain Consult Reason/Comments: Positive for PE Do you want consulting provider notified?: Yes 01/10/20 10:39 Consult Physician Routine Consulting Provider: Donald Camara Consult Reason/Comments: xarelto failure Do you want consulting provider notified?: Yes 01/10/20 18:05 Consult Physician Routine Consulting Provider: Briseida Carcamo Consult Reason/Comments: positive occult stool Do you want consulting provider notified?: Yes 01/10/20 19:38 Consult Physician Routine Consulting Provider: Harjit Woodard Consult Reason/Comments: Matt Filter Do you want consulting provider notified?: Yes Primary care physician: [facility] Course: Final Diagnoses: acute comminuted foreshortened and displaced left intertrochanteric femoral fracture, status post fall Acute bilateral pulmonary embolism Acute hypoxic respiratory failure secondary to the above Acute post blood loss anemia, status post 1 unit packed RBCs chronic appearing left superior and inferior pubic ramus fractures. Paroxysmal atrial fibrillation, currently sinus rhythm, episode of A. fib with RVR postop. Hypertension Hypothyroidism Former nicotine dependence Hypomagnesemia Hypokalemia Hyponatremia, secondary to dehydration, decreased oral intake, improving Hospital course:This is an 89-year-old female with history of paroxysmal atrial fibrillation, hypertension, hypothyroidism, former nicotine dependence and multiple other medical issues presented to the ER with left hip pain status post fall. Patient reports she was walking turning to go through a doorway and lost her balance. Denies head trauma. Denies syncope, lightheadedness or dizziness. Denies any focal deficits. Denies chest pain, palpitations or shortness of breath. Hip x-ray reported acute comminuted foreshortened and displaced left intertrochanteric femoral fracture, chronic appearing left superior and inferior pubic ramus fractures. Chest x-ray reported right hemidiaphragm elevation, bilateral pleural personal scarring in the upper limits of normal size cardiomediastinal silhouette. Coronavirus not detected. Troponins less than 0.012, 0.030. Sodium 129. Afebrile, mild leukocytosis, WBC 11. BUN 20, creatinine 1.1 on admission down to 0.75. 01/06/2020 scheduled for surgery this morning with orthopedics. EKG reported sinus rhythm with first-degree AV block, nonspecific changes. Cardiac enzymes 2 negative, INR 0.9. Hemoglobin 10.8, platelets 176. Echo pending. Afebrile, normal WBC.VSS. 01/09/2020 Continues on heparin drip for acute bilateral PE. maintaining O2 sats in the 90s on 2 L nasal cannula. Denies chest pain, palpitations or shortness of breath. Maintained on Lopressor, Cardizem, telemetry reporting sinus rhythm. Pain currently controlled. Positive bowel movement. 01/10/2020 Continues on heparin drip. Some concern over possible Xarelto failure, but Daughter informed RN , that she doesn't think her mom was consistently taking Xarelto. Pulmonary requesting heparin drip being maintained for another 24 hours and consulted hematology. Maintaining O2 sats in the 90s on 2 L nasal cannula. Denies chest pain, palpitations. 01/11/2020 hemoglobin 7.6, platelets 239, asymptomatic .no hemoptysis, no hematochezia, no melena , no hematuria. Anticoagulation temporarily on hold, being discussed by multiple consults. Evaluated by both GI and vascular re potential filter placement. No bowel movement, passing flatus. Pain controlled. Potassium 3.1. Magnesium 1.4 Telemetry sinus rhythm. Maintaining O2 sats in the 90s on 2 L nasal cannula.VSS. Telemetry sinus rhythm Denies chest pain, palpitations or shortness of breath. Denies lightheadedness, dizziness or focal deficits. Significant clinical improvement. Final anticoagulation dosing as per cardiology, pulmonary and hematology. Patient has been cleared for discharge by all consults. Patient is being discharged to [facility] subacute rehab in stable condition with guarded prognosis. The impression and plan of care has been dictated as directed. : I performed a history and examination of this patient, discussed the same with the dictator. I agree with the dictator's note ,documented as a scribe. Any additional findings or plans will be noted. Patient Condition at Discharge: Stable Plan - Discharge Summary New Discharge Prescriptions: New Docusate [Colace] 100 mg PO BID cap Ipratropium-Albuterol Nebulize [Duoneb 0.5 mg-3 mg/3 ml Soln] 3 ml INHALATION RT-TID ml Magnesium Hydroxide [Milk of Magnesia Concentrate] 2,400 mg PO DAILY PRN ml PRN Reason: Constipation Multivitamins, Thera [Multivitamin (formulary)] 1 each PO DAILY@1200 tab Pantoprazole Sodium [Protonix] 40 mg PO BID #60 tablet. Sennosidemichelle-Docusate Sodium [Senokot-S] 2 each PO BID tab Acetaminophen Tab [Tylenol] 650 mg PO Q4HR PRN tab PRN Reason: Pain Scale 1 To 5 Rivaroxaban [Xarelto] 20 mg PO W/SUPPER tab Continue Rosuvastatin Calcium [Crestor] 20 mg PO DAILY Levothyroxine Sodium [Synthroid] 112 mcg PO DAILY Olmesartan Medoxomil 20 mg PO DAILY Cholecalciferol [Vitamin D3 (25 Mcg = 1000 Iu)] 1,000 unit PO DAILY Diltiazem HCl [Cartia Xt] 180 mg PO DAILY Citalopram Hydrobromide [CeleXA] 10 mg PO DAILY Discontinued Rivaroxaban [Xarelto] 15 mg PO HS Hydrochlorothiazide [Hydrodiuril] 25 mg PO DAILY Discharge Medication List Levothyroxine Sodium [Synthroid] 112 mcg PO DAILY 02/18/15 [History] Rosuvastatin Calcium [Crestor] 20 mg PO DAILY 02/18/15 [History] Cholecalciferol [Vitamin D3 (25 Mcg = 1000 Iu)] 1,000 unit PO DAILY 01/05/20 [History] Citalopram Hydrobromide [CeleXA] 10 mg PO DAILY 01/05/20 [History] Diltiazem HCl [Cartia Xt] 180 mg PO DAILY 01/05/20 [History] Olmesartan Medoxomil 20 mg PO DAILY 01/05/20 [History] Acetaminophen Tab [Tylenol] 650 mg PO Q4HR PRN tab 01/12/20 [Rx] Docusate [Colace] 100 mg PO BID cap 01/12/20 [Rx] Ipratropium-Albuterol Nebulize [Duoneb 0.5 mg-3 mg/3 ml Soln] 3 ml INHALATION RT-TID ml 01/12/20 [Rx] Magnesium Hydroxide [Milk of Magnesia Concentrate] 2,400 mg PO DAILY PRN ml 01/12/20 [Rx] Multivitamins, Thera [Multivitamin (formulary)] 1 each PO DAILY@1200 tab 01/12/20 [Rx] Pantoprazole Sodium [Protonix] 40 mg PO BID #60 tablet. 01/12/20 [Rx] Rivaroxaban [Xarelto] 20 mg PO W/SUPPER tab 01/12/20 [Rx] Sennosides-Docusate Sodium [Senokot-S] 2 each PO BID tab 01/12/20 [Rx] Follow up Appointment(s)/Referral(s): Domenico Whaley MD [STAFF PHYSICIAN] - 2 Weeks Lenard Cobb MD [Primary Care Provider] - 1-2 days Niels Fountain MD [STAFF PHYSICIAN] - 1 Week Ja Donaldson DO [Doctor of Osteopathic Medicine] - 2 Weeks (Patient may follow-up with Dr. Ja Donaldson at [facility] in 2 weeks following discharge. ) Activity/Diet/Wound Care/Special Instructions: dionne Werner in 2 days Pain management as per orthorpedic surgery 1. Toe-touch weightbearing only on the left lower extremity 2. Encouraged to use an aid to increase mobility and ambulation 3. May continue with daily dressing changes as needed over the left hip 4. Keep fredis intact; fredis were planned to be removed at her 2 week follow-up appointment 5. Patient may shower without a dressing over the incision site of the left hip incision sites remain drive the next 72 hours 6. Patient may apply ice for comfort over the dressings over the incision sites the left hip 7. Take medications as prescribed 8. Continue anticoagulation with Xarelto as previously prescribed Discharge Disposition: TRANSFER TO SNF/ECF
[2020-01-12] MEDS ORDERED: SENNOSIDES-DOCUSATE SODIUM 1 EACH TAB PO SCH ×2 (12:00)
[2020-01-12] MEDS ORDERED: LACTULOSE 20 GM/30 ML CUP PO ONE (12:02)
[2020-01-12] MEDS: MULTIVITAMINS, THERA 1 EACH TAB PO SCH (12:11)
--- NOTE | 2020-01-12 12:38 | P.PN ---
Subjective Progress Note Date: 01/12/20 Principal diagnosis: Acute hypoxic respiratory failure Acute pulmonary embolism bilateral with acute hypoxic respiratory failure Chronic atrial fibrillation Status post fall and left intertrochanteric fracture status post intramedullary nail on 01/06/2020 Status post fall Hypertension hypertensive cardiovascular disease Dyslipidemia Hypothyroidism Morbid obesity 01/12/2020, patient seen and evaluated examined during the rounds labs reviewed medications reviewed, care plan discussed with the cardiovascular services vascular services and she had length, no plans for endoscopy, also no plans for IVC filter placement, cardiovascular services feel that patient can be treated with a once daily dose of Xeralto 20 mg daily patient is hemodynamically stable and asymptomatic she is being prepared for possible transfer to extended care facility for rehab purposes, as far as her hip she is doing well able to get up and move around with the support, labs from today revealed white cell count is 13,000 and hemoglobin is 9.7 platelet count is 288 he shouldn't has been tra nsfused with the younger one unit of packed RBC and hemoglobin came up to 9.7 posttransfusion, now patient has been treated with IV Protonix prior to discharge will be changed to oral daily 01/11/2020, patient seen and evaluated examined asymptomatic denies any chest pain or shortness of breath noted that hemoglobin is down, patient has gram- positive her stool heparin has been on hold Xarelto has been on hold since yesterday, vascular surgery has evaluated patient no plans for IVC filter, duple x ultrasound lower extremity has been negative, GI services have not evaluated this patient. We'll start heparin monitor hemoglobin closely and daily basis pending further recommendation from GI. Continue PPI in the meantime 01/10/2020, patient seen eval examined during the rounds has been doing well she is on 2 L nasal cannula denies any chest pain denies any shortness of breath, patient has bilateral significant pulmonary embolism has been on IV heparin, case has been discussed with cardiovascular services they feel that patient has been on suboptimal dose of Xarelto and may not be taking it more regularly in the past, and can go back on Xarelto initial 15 mg 2 times a day subsequently 20 mg daily, will also consult hematology, heparin can be stopped tomorrow and Xarelto can be initiated 01/09/2020, patient seen eval reexamined during the round he is she's comfortable on 2 L oxygen he denies any chest pain denies any shortness of breath respiratory status stable patient remains on heparin drip, it appears that patient took last dose of Xarelto on January 03 the day of fracture of hip, and she developed pulmonary embolism on night of , patient has been on heparin drip since , we'll give another 48 hours of heparin infusion and then will start Eliquis 5 mg bid, patient appears to be well anticoagulated hemoglobin is stable platelet counts are stable agree with starting physical therapy and rehab as planned This is a 89-year-old female who admitted into the hospital after a fall Of left intertrochanteric fracture on 01/05 she ended up in an intramedullary nail placed, which was performed successfully postop day #0 at night she started developing shortness of breath and desaturation d-dimer was checked that was noted to be very high, patient has been ordered a computed tomography scan of the chest which is positive for bilateral. Patient has been started on IV heparin, she is currently complaining of back pain no chest pain or shortness of breath, chest CT scan has been reviewed and confirmed acute pulmonary embolism Objective - Vital Signs Vital signs: Vital Signs Temp 97.9 F 01/12/20 07:00 Pulse 60 01/12/20 07:00 Resp 15 01/12/20 07:00 BP 96/58 01/12/20 07:00 Pulse Ox 93 L 01/12/20 07:00 Intake & Output 01/11/20 01/12/20 01/12/20 18:59 06:59 18:59 Intake Total 310 Balance 310 Weight 83.915 kg Intake: Blood Product 310 Rc Pheresis 2 As3 Unit 310 [id number] Other: Voiding Method Bedside Commode Bedside Commode Diaper Diaper # Voids 2 1 - Exam - Constitutional General appearance: Present: disheveled, morbidly obese - EENT Eyes: Present: EOMI, PERRLA ENT: Present: hard of hearing Ears: bilateral: normal - Neck Carotids: bilateral: upstroke normal Thyroid: bilateral: normal size - Respiratory Respiratory: bilateral: CTA (Upper lungs), diminished (Bilaterally at the bases) - Cardiovascular Rhythm: regular Heart sounds: normal: S1, S2 - Gastrointestinal General gastrointestinal: Present: normal bowel sounds, soft - Neurologic Neurologic: Present: CNII-XII intact - Musculoskeletal Musculoskeletal: Present: gait normal, generalized weakness, strength equal bilaterally - Psychiatric Psychiatric: Present: A&O x's 3, appropriate affect, intact judgment & insight - Labs CBC & Chem 7: 01/12/20 07:52 01/12/20 07:52 Labs: Abnormal Lab Results - Last 24 Hours (Table) 01/11/20 01/11/20 01/11/20 Range/Units 04:53 04:53 13:02 WBC (3.8-10.6) k/uL RBC (3.80-5.40) m/uL Hgb (11.4-16.0) gm/dL Hct (34.0-46.0) % Neutrophils # (1.3-7.7) k/uL Sodium (137-145) mmol/L Chloride (98-107) mmol/L Glucose (74-99) mg/dL Vitamin B12 1251.0 H (200.0-944.0) pg/mL RBC Folate 1,508 H (280 - 791) ng/mL Crossmatch See Detail 01/12/20 01/12/20 Range/Units 07:52 07:52 WBC 13.3 H (3.8-10.6) k/uL RBC 3.33 L (3.80-5.40) m/uL Hgb 9.7 L D (11.4-16.0) gm/dL Hct 30.9 L (34.0-46.0) % Neutrophils # 9.7 H (1.3-7.7) k/uL Sodium 128 L (137-145) mmol/L Chloride 93 L (98-107) mmol/L Glucose 132 H (74-99) mg/dL Vitamin B12 (200.0-944.0) pg/mL RBC Folate (280 - 791) ng/mL Crossmatch Assessment and Plan Assessment: Acute hypoxic respiratory failure Acute pulmonary embolism bilateral with acute hypoxic respiratory failure Heme positive stool and possibly ongoing blood loss with acute on chronic anemia status post 1 unit of packed RBC transfusion Generalized weakness and medical debility Chronic atrial fibrillation Status post fall and left intertrochanteric fracture status post intramedullary nail on 01/06/2020 Status post fall Hypertension hypertensive cardiovascular disease Dyslipidemia Hypothyroidism Morbid obesity Plan: Continue supplemental oxygen Deep breathing exercise incentive spirometry Status post 1 unit packed RBC transfusion Discussed with cardiology patient will be placed on 20 mg a lot of Agree with placement into ECF for rehabilitation Monitor and observe, hemoglobin, closely Continue Protonix can be changed to by mouth daily at the time of discharge Time with Patient: Greater than 30
[2020-01-13 07:37] LABS: Methylmalonic Acid 0.27 umol/L (<0.40)
--- NOTE | 2020-01-13 11:26 | DS ---
DISCHARGE SUMMARY ADDENDUM: Acute blood loss anemia secondary to orthopedic surgery and possible gastrointestinal bleed unclear and blood thinners. MMODL / IJN: [id number] /
[2020-01-13] MEDS ORDERED: RIVAROXABAN 20 MG TAB PO SCH (17:30)
== END 2020-01-12 13:42 | DRG 480 ==
LOC: EC 21:13 → 4SSUR 23:42
PROVIDERS: ADMIT Family Medicine; ATTEND Family Medicine
PROC: 0QS736Z Reposition Left Upper Femur with Intramedullary Internal Fixation Device, Percutaneous Approach (ICD-10-PCS; principal; 2020-01-06 09:45)
PROC: 30233N1 Transfusion of Nonautologous Red Blood Cells into Peripheral Vein, Percutaneous Approach (ICD-10-PCS; 2020-01-11)
DX: S72.142A Displaced intertrochanteric fracture of left femur, initial encounter for closed fracture (principal); J96.01 Acute respiratory failure with hypoxia; I26.99 Other pulmonary embolism without acute cor pulmonale; M48.54XA Collapsed vertebra, not elsewhere classified, thoracic region, initial encounter for fracture; E87.1 Hypo-osmolality and hyponatremia; D62 Acute posthemorrhagic anemia; J98.11 Atelectasis; I48.0 Paroxysmal atrial fibrillation; E86.0 Dehydration; I11.9 Hypertensive heart disease without heart failure; E66.01 Morbid (severe) obesity due to excess calories; Z11.59 Encounter for screening for other viral diseases; E83.42 Hypomagnesemia; E87.6 Hypokalemia; D72.829 Elevated white blood cell count, unspecified; I44.0 Atrioventricular block, first degree; E78.5 Hyperlipidemia, unspecified; E03.9 Hypothyroidism, unspecified; R19.5 Other fecal abnormalities; H91.90 Unspecified hearing loss, unspecified ear; Z68.29 Body mass index [BMI] 29.0-29.9, adult; Z79.890 Hormone replacement therapy; Z79.01 Long term (current) use of anticoagulants; Z79.899 Other long term (current) drug therapy; Z86.711 Personal history of pulmonary embolism; Z87.891 Personal history of nicotine dependence; Z96.652 Presence of left artificial knee joint; Z90.49 Acquired absence of other specified parts of digestive tract; Z90.710 Acquired absence of both cervix and uterus; Z98.49 Cataract extraction status, unspecified eye; Z87.81 Personal history of (healed) traumatic fracture; W01.0XXA Fall on same level from slipping, tripping and stumbling without subsequent striking against object, initial encounter; Y92.009 Unspecified place in unspecified non-institutional (private) residence as the place of occurrence of the external cause; Y93.01 Activity, walking, marching and hiking
CPT/HCPCS: 71045; 71275; 73502; 80048; 80053; 81001; 82272; 82607; 82728; 82747; 83540; 83550; 83735; 83880; 83921; 84443; 84484; 85025; 85027; 85379; 85610; 85730; 86850; 86900; 86901; 86920; 87635; 93005; 93306; 93970; 94640; 94760; 96374; 96375; 99285

== ENCOUNTER 2020-02-24 12:35 | Emergency (ER) | payer MEDICARE ==
--- NOTE | 2020-02-24 12:55 | ED ---
General Adult HPI - General Chief complaint: Recheck/Abnormal Lab/Rx Stated complaint: Low BP Time Seen by Provider: 02/24/20 12:46 Source: patient, family, RN notes reviewed Mode of arrival: wheelchair Limitations: no limitations - History of Present Illness Initial comments: Patient is a pleasant 89-year-old female presenting to the emergency department with concern for blood pressure. Patient was at a routine visit at her doctor's office and blood pressure was low. They checked 3 times. The lowest blood pressure was 60 systolic. Patient is symptom-free and has no complaints. No lightheadedness. No confusion. No weakness. No sick appear nursing to be. No history of similar symptoms previously. Patient was placed on Lasix not long ago secondary to swelling. Patient did have left hip surgery done 6 weeks ago. No leg pain. No weakness or complications. - Related Data Home Medications Medication Instructions Recorded Confirmed Levothyroxine Sodium [Synthroid] 112 mcg PO DAILY@0800 02/18/15 02/24/20 Rosuvastatin Calcium [Crestor] 20 mg PO DAILY@199902/18/15 02/24/20 Cholecalciferol [Vitamin D3 (25 1,000 unit PO DAILY@1700 01/05/20 02/24/20 Mcg = 1000 Iu)] Citalopram Hydrobromide [CeleXA] 10 mg PO DAILY@199901/05/20 02/24/20 Diltiazem HCl [Cartia Xt] 180 mg PO DAILY@199901/05/20 02/24/20 Olmesartan Medoxomil 20 mg PO DAILY@0801/05/20 02/24/20 Docusate [Colace] 100 mg PO BID@0800,199902/24/20 02/24/20 Furosemide [Lasix] 60 mg PO BID@0800,1400 02/24/20 02/24/20 Multivitamins, Thera [Multivitamin 1 each PO DAILY@79902/24/20 02/24/20 (formulary)] Pantoprazole Sodium [Protonix] 40 mg PO BID@0800,199902/24/20 02/24/20 Potassium Chloride ER [K-Dur 10] 10 meq PO DAILY@79902/24/20 02/24/20 Rivaroxaban [Xarelto] 20 mg PO DAILY@79902/24/2002/23/20 Sennosides-Docusate Sodium 2 tab PO BID@0800,199902/24/20 02/24/20 [Senokot-S] Previous Rx's Medication Instructions Recorded Acetaminophen with Codeine 1 tab PO Q8H PRN 7 Days #21 tab 01/12/20 [Tylenol w/codeine #3] Nitrofurantoin Monohyd/M-Cryst 100 mg PO Q12HR #20 cap 02/24/20 [Macrobid] Allergies Allergy/AdvReac Type Severity Reaction Status Date / Time No Known Allergies Allergy Verified 02/24/20 15:16 Review of Systems ROS Statement: Those systems with pertinent positive or pertinent negative responses have been documented in the HPI. ROS Other: All systems not noted in ROS Statement are negative. Constitutional: Denies: fever Eyes: Denies: eye pain ENT: Denies: ear pain Respiratory: Denies: cough, dyspnea Cardiovascular: Denies: chest pain Endocrine: Denies: fatigue Gastrointestinal: Denies: abdominal pain, vomiting Genitourinary: Denies: dysuria Musculoskeletal: Denies: back pain Skin: Denies: rash Neurological: Denies: weakness Past Medical History Past Medical History: Atrial Fibrillation, Hypertension, Thyroid Disorder History of Any Multi-Drug Resistant Organisms: None Reported Past Surgical History: Appendectomy, Cholecystectomy, Hysterectomy, Joint Replacement, Orthopedic Surgery, Tonsillectomy Additional Past Surgical History / Comment(s): cataract/LT KNEE REPLACEMENT, left hip repair 01/06/2020 Past Anesthesia/Blood Transfusion Reactions: No Reported Reaction Past Psychological History: No Psychological Hx Reported Smoking Status: Former smoker Past Alcohol Use History: Daily Past Drug Use History: None Reported General Exam Limitations: no limitations General appearance: alert, in no apparent distress Head exam: Present: normocephalic Eye exam: Present: normal appearance, PERRL ENT exam: Present: normal oropharynx Neck exam: Present: normal inspection Respiratory exam: Present: normal lung sounds bilaterally Cardiovascular Exam: Present: regular rate, normal rhythm GI/Abdominal exam: Present: soft. Absent: tenderness Extremities exam: Present: pedal edema (+2 on the left). Absent: calf tenderness Back exam: Present: normal inspection Neurological exam: Present: alert, oriented X3, CN II-XII intact. Absent: motor sensory deficit Expanded Neurological exam: Present: protecting the airway Patient oriented to: Present: person, place, time Speech: Present: fluid speech Motor strength exam: RUE: 5, LUE: 5, RLE: 5, LLE: 4 (Patient states this is normal secondary to discomfort of her left hip since surgery) Eye Response: (4) open spontaneously Motor Response: (6) obeys commands Verbal Response: (5) oriented Psychiatric exam: Present: normal affect, normal mood Skin exam: Present: normal color Course Vital Signs 02/24/20 02/24/20 02/24/20 12:39 13:15 14:01 Temperature 98.8 F Pulse Rate 86 88 82 Respiratory 16 16 16 Rate Blood Pressure 109/62 108/64 116/61 O2 Sat by Pulse 97 96 99 Oximetry 02/24/20 15:06 Temperature 98.2 F Pulse Rate 86 Respiratory 17 Rate Blood Pressure 128/68 O2 Sat by Pulse 99 Oximetry EKG Findings - EKG Comments: EKG Findings:: Normal sinus rhythm at 74. WA 188. QRS 84. QT 392. QTC 435. Normal axis. LVH criteria. Nonspecific ST-T. Medical Decision Making - Medical Decision Making Patient has had multiple acceptable blood pressures in the emergency department, never a low blood pressure. Case was discussed in detail with Dr. Cobb who is comfortable with discharge of this patient and will follow-up within one week. Patient reevaluated and remained symptom-free. Patient and family updated. - Lab Data Result diagrams: 02/24/20 14:05 02/24/20 14:05 Lab Results 02/24/20 02/24/20 02/24/20 Range/Units 13:18 14:05 14:05 WBC 9.1 (3.8-10.6) k/uL RBC 4.35 (3.80-5.40) m/uL Hgb 12.8 (11.4-16.0) gm/dL Hct 39.9 (34.0-46.0) % MCV 91.8 (80.0-100.0) fL MCH 29.3 (25.0-35.0) pg MCHC 32.0 (31.0-37.0) g/dL RDW 13.5 (11.5-15.5) % Plt Count 235 (150-450) k/uL Neutrophils % 70 % Lymphocytes % 19 % Monocytes % 6 % Eosinophils % 2 % Basophils % 1 % Neutrophils # 6.4 (1.3-7.7) k/uL Lymphocytes # 1.7 (1.0-4.8) k/uL Monocytes # 0.6 (0-1.0) k/uL Eosinophils # 0.2 (0-0.7) k/uL Basophils # 0.1 (0-0.2) k/uL PT 13.3 H (9.0-12.0) sec INR 1.3 H (<1.2) APTT 29.1 (22.0-30.0) sec Sodium (137-145) mmol/L Potassium (3.5-5.1) mmol/L Chloride (98-107) mmol/L Carbon Dioxide (22-30) mmol/L Anion Gap mmol/L BUN (7-17) mg/dL Creatinine (0.52-1.04) mg/dL Est GFR (CKD-EPI)AfAm (>60 ml/min/1.73 sqM) Est GFR (CKD-EPI)NonAf (>60 ml/min/1.73 sqM) Glucose (74-99) mg/dL Calcium (8.4-10.2) mg/dL Magnesium (1.6-2.3) mg/dL Total Bilirubin (0.2-1.3) mg/dL AST (14-36) U/L ALT (4-34) U/L Alkaline Phosphatase (38-126) U/L Total Protein (6.3-8.2) g/dL Albumin (3.5-5.0) g/dL Urine Color Yellow Urine Appearance Cloudy H (Clear) Urine pH 6.5 (5.0-8.0) Ur Specific [place] 1.012 (1.001-1.035) Urine Protein Trace H (Negative) Urine Glucose (UA) Negative (Negative) Urine Ketones Negative (Negative) Urine Blood Small H (Negative) Urine Nitrite Negative (Negative) Urine Bilirubin Negative (Negative) Urine Urobilinogen <2.0 (<2.0) mg/dL Ur Leukocyte Esterase Large H (Negative) Urine RBC 8 H (0-5) /hpf Urine WBC 50 H (0-5) /hpf Ur Squamous Epith Cells 5 H (0-4) /hpf Urine Bacteria Occasional H (None) /hpf Hyaline Casts 69 H (0-2) /lpf Urine Mucus Rare H (None) /hpf // Range/Units 14:05 WBC (3.8-10.6) k/uL RBC (3.80-5.40) m/uL Hgb (11.4-16.0) gm/dL Hct (34.0-46.0) % MCV (80.0-100.0) fL MCH (25.0-35.0) pg MCHC (31.0-37.0) g/dL RDW (11.5-15.5) % Plt Count (150-450) k/uL Neutrophils % % Lymphocytes % % Monocytes % % Eosinophils % % Basophils % % Neutrophils # (1.3-7.7) k/uL Lymphocytes # (1.0-4.8) k/uL Monocytes # (0-1.0) k/uL Eosinophils # (0-0.7) k/uL Basophils # (0-0.2) k/uL PT (9.0-12.0) sec INR (<1.2) APTT (22.0-30.0) sec Sodium 135 L (137-145) mmol/L Potassium 3.7 (3.5-5.1) mmol/L Chloride 99 (98-107) mmol/L Carbon Dioxide 26 (22-30) mmol/L Anion Gap 10 mmol/L BUN 19 H (7-17) mg/dL Creatinine 0.96 (0.52-1.04) mg/dL Est GFR (CKD-EPI)AfAm 61 (>60 ml/min/1.73 sqM) Est GFR (CKD-EPI)NonAf 53 (>60 ml/min/1.73 sqM) Glucose 121 H (74-99) mg/dL Calcium 10.0 (8.4-10.2) mg/dL Magnesium 1.6 (1.6-2.3) mg/dL Total Bilirubin 0.6 (0.2-1.3) mg/dL AST 32 (14-36) U/L ALT 15 (4-34) U/L Alkaline Phosphatase 109 (38-126) U/L Total Protein 7.5 (6.3-8.2) g/dL Albumin 4.2 (3.5-5.0) g/dL Urine Color Urine Appearance (Clear) Urine pH (5.0-8.0) Ur Specific [place] (1.001-1.035) Urine Protein (Negative) Urine Glucose (UA) (Negative) Urine Ketones (Negative) Urine Blood (Negative) Urine Nitrite (Negative) Urine Bilirubin (Negative) Urine Urobilinogen (<2.0) mg/dL Ur Leukocyte Esterase (Negative) Urine RBC (0-5) /hpf Urine WBC (0-5) /hpf Ur Squamous Epith Cells (0-4) /hpf Urine Bacteria (None) /hpf Hyaline Casts (0-2) /lpf Urine Mucus (None) /hpf Disposition Clinical Impression: Urinary tract infection Disposition: HOME SELF-CARE Condition: Stable Instructions (If sedation given, give patient instructions): Urinary Tract Infection in Women (ED) Additional Instructions: Please do follow-up with primary care physician in the next couple of days for recheck. Return for weakness, passing out, fatigue, fever, worsening or changing symptoms or other concerns. Prescription sent to [facility] pharmacy in [place] Prescriptions: Nitrofurantoin Monohyd/M-Cryst [Macrobid] 100 mg PO Q12HR #20 cap Is patient prescribed a controlled substance at d/c from ED?: No Referrals: Lenard Cobb MD [Primary Care Provider] - 1-2 days Time of Disposition: 15:33
[2020-02-24 13:30] LABS: Appearance,Urine Cloudy (Clear); Bacteria,Urine Occasional /hpf; Bilirubin,Urine Negative (Negative); Blood,Urine Small (Negative); Color,Urine Yellow; Glucose,Urine (UA) Negative (Negative); Hyaline Casts,Urine 69 /lpf (0-2); Ketones,Urine Negative (Negative); Leukocyte Esterase,Urine Large (Negative); Mucus,Urine Rare /hpf; Nitrite,Urine Negative (Negative); PH, Urine 6.5 (5.0-8.0); Protein,Urine Trace (Negative); RBC,Urine 8 /hpf (0-5); Specific Gravity,Urine 1.012 (1.001-1.035); Squamous Epithelial Cell,Urine 5 /hpf (0-4); Urobilinogen,Urine <2.0 mg/dL (<2.0); WBC,Urine 50 /hpf (0-5)
[2020-02-24 14:12] LABS: Basophils # (A) 0.1 k/uL (0-0.2); Basophils % (A) 1 %; Eosinophils # (A) 0.2 k/uL (0-0.7); Eosinophils % (A) 2 %; HCT 39.9 % (34.0-46.0); HGB 12.8 gm/dL (11.4-16.0); Lymphocytes # (A) 1.7 k/uL (1.0-4.8); Lymphocytes % (A) 19 %; MCH 29.3 pg (25.0-35.0); MCV 91.8 fL (80.0-100.0); Mean Platelet Volume 8.5; Monocytes # (A) 0.6 k/uL (0-1.0); Monocytes % (A) 6 %; Neutrophils # (A) 6.4 k/uL (1.3-7.7); Neutrophils % (A) 70 %; Platelet Count 235 k/uL (150-450); RBC 4.35 m/uL (3.80-5.40); RDW 13.5 % (11.5-15.5); WBC 9.1 k/uL (3.8-10.6)
[2020-02-24 14:23] LABS: INR 1.3 (<1.2); Partial Thromboplastin Time 29.1 sec (22.0-30.0); Prothrombin Time 13.3 sec (9.0-12.0)
--- NOTE | 2020-02-24 14:26 | US ---
EXAMINATION TYPE: US venous doppler duplex LE LT DATE OF EXAM: 02/24/2020 2:06 PM COMPARISON: CLINICAL HISTORY: swelling. Hx left hip surgery x 6 weeks ago. Left leg swelling. SIDE PERFORMED: Left TECHNIQUE: The lower extremity deep venous system is examined utilizing real time linear array sonog taco with graded compression, doppler sonography and color-flow sonography. VESSELS IMAGED: External Iliac Vein (EIV) Common Femoral Vein Deep Femoral Vein Greater Saphenous Vein * Femoral Vein Popliteal Vein Small Saphenous Vein * Proximal Calf Veins (* superficial vessels) Left Leg: Negative for DVT. In left groin, possible prominent arterial vessel visualized= 2.7 x 2.7 x 1.8 cm, unknown origin. IMPRESSION: No evidence of DVT.
[2020-02-24 14:27] LABS: Albumin 4.2 g/dL (3.5-5.0); Total Bilirubin 0.6 mg/dL (0.2-1.3); Total Protein 7.5 g/dL (6.3-8.2)
[2020-02-24 14:29] LABS: Magnesium 1.6 mg/dL (1.6-2.3); Potassium 3.7 mmol/L (3.5-5.1)
--- NOTE | 2020-02-24 15:05 | XR ---
EXAMINATION TYPE: XR chest 2V DATE OF EXAM: 02/24/2020 COMPARISON: 01/07/2020 HISTORY: Shortness of breath TECHNIQUE: Frontal and lateral views of the chest are obtained. FINDINGS: Scattered senescent parenchymal changes noted. Hyperinflation compatible with COPD. No evidence for infiltrate. No evidence for atelectasis. Heart size is stable. Mediastinal structures are stable and grossly unremarkable. No evidence for hilar prominence. Degenerative changes dorsal spine. IMPRESSION: 1. No evidence for acute pulmonary disease.
[2020-02-24 15:10] VITALS: RESP 17; TEMP 98.2
[2020-02-24 16:03] VITALS: BP 119/68; PULSE 89
== END 2020-02-24 16:00 | disposition home or self-care (01) ==
LOC: EC 12:35
DX: N39.0 Urinary tract infection, site not specified (principal); R60.9 Edema, unspecified; I48.91 Unspecified atrial fibrillation; I10 Essential (primary) hypertension; E07.9 Disorder of thyroid, unspecified; Z79.899 Other long term (current) drug therapy; Z79.01 Long term (current) use of anticoagulants; Z79.890 Hormone replacement therapy; Z96.652 Presence of left artificial knee joint; Z90.710 Acquired absence of both cervix and uterus; Z87.891 Personal history of nicotine dependence
CPT/HCPCS: 36415; 71046; 80053; 81001; 83735; 85025; 85610; 85730; 87077; 87086; 87186; 93005; 99285